=== PATIENT | female | born 1935 | race Caucasian/White ===

== ENCOUNTER 2018-09-14 02:05 | Inpatient (IN) | payer MEDICARE, OTHER ==
[~2018-09-14] VITALS: Ht 154.9 cm; Wt 70.8 kg
[2018-09-14] MEDS ORDERED: MAG HYDROX/AL HYDROX/SIMETH 30 ML ORAL.SUSP PO PRN (04:00)
[2018-09-14] MEDS ORDERED: METHYL SALICYLATE/MENTHOL TOPICAL OINTMENT 29GM TUBE. TP PRN (04:00)
[2018-09-14] MEDS ORDERED: MELA3TAB2 PO (05:23)
[2018-09-14] MEDS ORDERED: ACET500T68 PO (05:23)
[2018-09-14] MEDS ORDERED: POTA20TA4 PO (05:23)
[2018-09-14] MEDS ORDERED: ONDA4TAB7 PO (05:23)
[2018-09-14] MEDS ORDERED: NYST15PO9 TP (05:23)
[2018-09-14] MEDS ORDERED: SENN-80 PO (05:23)
[2018-09-14] MEDS ORDERED: LOSA50TA14 PO (05:23)
[2018-09-14] MEDS ORDERED: QUET25TA5 PO (05:23)
[2018-09-14] MEDS ORDERED: PREG150C PO (05:23)
[2018-09-14] MEDS ORDERED: TRAM50TA PO (05:23)
[2018-09-14] MEDS ORDERED: CARV3.12 PO (05:23)
[2018-09-14] MEDS ORDERED: DICL100G18 TP (05:23)
[2018-09-14] MEDS ORDERED: CLON1TAB PO (05:23)
[2018-09-14] MEDS ORDERED: CLOP75TA PO (05:23)
[2018-09-14] MEDS ORDERED: DULO30CA2 PO (05:23)
[2018-09-14] MEDS ORDERED: MULT1TAB57 PO (05:23)
[2018-09-14] MEDS ORDERED: TIOT18CA IH (05:23)
[2018-09-14] MEDS ORDERED: CHOL10003 PO (05:23)
[2018-09-14] MEDS ORDERED: DICLOFENAC SODIUM 1% TOPICAL GEL 100GM TUBE. TP PRN (05:30)
[2018-09-14] MEDS ORDERED: SENNOSIDES 8.6 MG TABLET PO PRN (05:30)
[2018-09-14] MEDS ORDERED: traMADol 50 MG TABLET PO PRN (05:30)
[2018-09-14] MEDS ORDERED: ONDANSETRON ODT 4 MG TAB.RAPDIS PO SCH (06:00)
[2018-09-14 06:11] VITALS: BP 149/91
[2018-09-14] MEDS ORDERED: ONDANSETRON ODT 4 MG TAB.RAPDIS PO PRN (06:30)
[2018-09-14 07:34] LABS: BASO # 0.1 x10^3/uL (0.0-0.2); BASO % 1 % (0-3); EOS # 0.2 x10^3/uL (0.0-0.7); EOS % 4 % (0-3); HEMATOCRIT 34.7 % (36.0-47.0); HEMOGLOBIN 11.5 g/dL (12.0-15.5); LYMPH # 1.3 x10^3/uL (1.0-4.8); LYMPH % 23 % (24-48); MEAN CORPUSCULAR HEMOGLOBIN 31 pg (25-35); MEAN CORPUSCULAR HGB CONC 33 g/dL (31-37); MEAN CORPUSCULAR VOLUME 93 fL (79-100); MONO # 0.6 x10^3/uL (0.0-1.1); MONO % 10 % (0-9); NEUT # 3.4 x10^3uL (1.8-7.7); NEUT % 62 % (31-73); PLATELET COUNT 249 x10^3/uL (140-400); RED BLOOD COUNT 3.72 x10^6/uL (3.50-5.40); RED CELL DISTRIBUTION WIDTH 16.4 % (11.5-14.5); WHITE BLOOD COUNT 5.5 x10^3/uL (4.0-11.0)
[2018-09-14 07:55] LABS: ALBUMIN 3.1 g/dL (3.4-5.0); ALBUMIN/GLOBULIN RATIO 0.8 (1.0-1.7); CALCIUM 9.8 mg/dL (8.5-10.1); CREATININE 0.7 mg/dL (0.6-1.0); GFR 80.1; MAGNESIUM 2.2 mg/dL (1.8-2.4); POTASSIUM 4.6 mmol/L (3.5-5.1); TOTAL BILIRUBIN 0.3 mg/dL (0.2-1.0)
[2018-09-14 07:58] LABS: VAL ACID 14 mcg/mL (50-100)
[2018-09-14] MEDS: CARVEDILOL 3.125 MG TABLET PO SCH ×3 (08:00→17:00)
[2018-09-14] MEDS: POTASSIUM CHLORIDE 20 MEQ TABLET.ER. PO SCH ×2 (08:00→10:03)
[2018-09-14] MEDS: IPRATRPIUM/ALBUTEROL 0.5/2.5MG 3 ML NEBU. NEB SCH ×4 (08:00→20:38)
[2018-09-14] MEDS: CHOLECALCIFEROL (VITAMIN D3) 1,000 UNIT TABLET PO SCH ×2 (09:00→10:01)
[2018-09-14] MEDS ORDERED: NON FORMULARY ITEM (Tiotropium Bromide (Spiriva) 1 CAP) IH SCH (09:00)
[2018-09-14] MEDS: NYSTATIN TOPICAL POWDER 15GM BOTTLE. TP SCH ×2 (09:00→19:51)
[2018-09-14] MEDS: MULTIVITAMIN with MINERAL TABLET. PO SCH ×2 (09:00→10:04)
[2018-09-14] MEDS: CLOPIDOGREL BISULFATE 75 MG TABLET PO SCH ×2 (09:00→10:04)
[2018-09-14] MEDS: PREGABALIN 75 MG CAPSULE PO SCH ×3 (09:00→19:50)
[2018-09-14] MEDS: DULoxetine HCL 30 MG CAPSULE.DR PO SCH ×2 (09:00→10:02)
[2018-09-14] MEDS: LOSARTAN 50 MG TABLET. PO SCH ×2 (09:00→10:03)
[2018-09-14] MEDS ORDERED: clonazePAM 1 MG TABLET PO SCH (09:00)
[2018-09-14] MEDS: ACETAMINOPHEN 500 MG TABLET PO SCH ×4 (09:00→19:51)
[2018-09-14 13:58] LABS: THYROID STIM HORMONE (TSH) 2.262 uIU/mL (0.358-3.740)
[2018-09-14 15:39] VITALS: BP 129/72
[2018-09-14 18:11] LABS: THYROXINE 5.9 ug/dL (4.5-12.0)
--- NOTE | 2018-09-14 18:15 | HP ---
ADMIT DATE: 09/14/2018 PSYCHIATRIC ADMISSION HISTORY/EVALUATION This note covers elements not covered in my initial note 09/14/2018. IDENTIFYING DATA: The patient is an 83-year-old female referred to us from the [facility] by Dr. Sammy John, her primary care physician, on account of increasing confusion, being combative, refusing to eat, being depressed, paranoid, and having marked insomnia. She was swinging at staff. Behaviors were deemed dangerous, unmanageable, referred to [facility] Room and then to us when she was unmanageable back at the facility after the ER visit. CHIEF COMPLAINT: "Leave me alone." The patient was in her wheelchair, head bent forward, said she was sleeping, but in fact was awake, angry, paranoid, irritable, depressed. HISTORY OF PRESENT ILLNESS: The patient has a history of dementia, Alzheimer's, vascular with delusion, depression, behavioral disturbance. Over the recent 2-3 weeks, she has had significant increase in her agitation, aggression, paranoia. She had sleep and appetite changes. No active suicidal or homicidal ideation. PAST PSYCHIATRIC HISTORY: As above. MEDICAL HISTORY: Positive for hypertension, scoliosis. Ambulates with a walker/wheelchair. The patient does have UTI and has been started on Keflex post visit to [facility] ER. DIET: Regular, takes meds crushed, hidden in pudding. CODE STATUS: Full code. ALLERGIES: HYDRALAZINE, VALIUM. CURRENT PSYCHOTROPICS: Cymbalta 30 mg a day, Klonopin 0.5 mg at bedtime, Seroquel 12.5 mg at bedtime, melatonin 9 mg at bedtime. FAMILY HISTORY: Noncontributory. MENTAL STATUS EXAMINATION: The patient was seen individually in the evening of 09/14/2018. She was at the dining table in her wheelchair prior to the meal being served. She was seated. Head bent forward, refused to respond to any questions, angry, irritable, appears depressed, paranoid, and suspicious. Attention span short. Language function intact. No active suicidal or homicidal ideation. Memory is impaired as noted. IMPRESSION: Major neurocognitive disorder, early Alzheimer, vascular with delusion, depression, behavioral disturbance; anxiety disorder, unspecified; impulse control disorder, unspecified; urinary tract infection. Rest diagnoses as above. RECOMMENDATIONS: From a psychiatric standpoint, admit to geropsychiatry unit. I will see the patient daily individually. Medical followup with Dr. Reilly. Continue the patient on her current psychotropics. Treat the UTI, then make further decisions depending on her response. ESTIMATED LENGTH OF STAY: 7-10 days. DISPOSITION PLAN: Back to the [facility] at discharge. BRITT HERRERA MD DR: MEREDITH/rekha JOB#: [id number] / [id number]
[2018-09-14] MEDS: MELATONIN 3 MG TABLET PO SCH (19:50)
[2018-09-14] MEDS ORDERED: QUEtiapine 25 MG TABLET. PO SCH (21:00)
[2018-09-14] MEDS ORDERED: ALBUTEROL SULFATE 2.5 MG/3 ML NEBU. NEB PRN (21:00)
[2018-09-14] MEDS ORDERED: MELATONIN 3 MG TABLET PO SCH (21:00)
[2018-09-14] MEDS ORDERED: clonazePAM 0.5 MG TABLET PO SCH (21:00)
[2018-09-14] MEDS ORDERED: CLON0.5T11 PO ×2 (21:32)
[2018-09-14] MEDS ORDERED: GUAI600T47 PO (21:57)
[2018-09-14] MEDS ORDERED: FURO20TA3 PO (21:57)
[2018-09-14] MEDS ORDERED: DILT180T7 PO (21:57)
[2018-09-14] MEDS ORDERED: MELO15TA23 PO (21:57)
[2018-09-14] MEDS ORDERED: FLEC50TA PO (21:57)
[2018-09-14] MEDS ORDERED: CEPH500C PO (22:07)
--- NOTE | 2018-09-14 22:19 | PDOC ---
Exam Note: Obdulio Note: Please also refer to the separate dictated note~for this date of service dictated separately. Discussed the patient with Nursing staff reviewed the chart.~Reviewed interim history and current functioning. Reviewed vital signs,~Labs/ Radiology~and current medications noted below. Continue current treatment with the changes noted in the dictated addendum note Assessment: Vital Signs: Vital Signs Date Time Temp Pulse Resp B/P (MAP) Pulse Ox O2 Delivery O2 Flow Rate FiO2 09/14/18 17:00 89 129/72 09/14/18 16:36 94 Room Air 09/14/18 15:39 98.2 16 Labs: Laboratory Tests Test 09/14/18 07:14 White Blood Count 5.5 x10^3/uL (4.0-11.0) Red Blood Count 3.72 x10^6/uL (3.50-5.40) Hemoglobin 11.5 g/dL (12.0-15.5) L Hematocrit 34.7 % (36.0-47.0) L Mean Corpuscular Volume 93 fL (79-100) Mean Corpuscular Hemoglobin 31 pg (25-35) Mean Corpuscular Hemoglobin Concent 33 g/dL (31-37) Red Cell Distribution Width 16.4 % (11.5-14.5) H Platelet Count 249 x10^3/uL (140-400) Neutrophils (%) (Auto) 62 % (31-73) Lymphocytes (%) (Auto) 23 % (24-48) L Monocytes (%) (Auto) 10 % (0-9) H Eosinophils (%) (Auto) 4 % (0-3) H Basophils (%) (Auto) 1 % (0-3) Neutrophils # (Auto) 3.4 x10^3uL (1.8-7.7) Lymphocytes # (Auto) 1.3 x10^3/uL (1.0-4.8) Monocytes # (Auto) 0.6 x10^3/uL (0.0-1.1) Eosinophils # (Auto) 0.2 x10^3/uL (0.0-0.7) Basophils # (Auto) 0.1 x10^3/uL (0.0-0.2) Sodium Level 147 mmol/L (136-145) H Potassium Level 4.6 mmol/L (3.5-5.1) Chloride Level 109 mmol/L (98-107) H Carbon Dioxide Level 30 mmol/L (21-32) Anion Gap 8 (6-14) Blood Urea Nitrogen 15 mg/dL (7-20) Creatinine 0.7 mg/dL (0.6-1.0) Estimated GFR (Cockcroft-Gault) 80.1 BUN/Creatinine Ratio 21 (6-20) H Glucose Level 97 mg/dL (70-99) Calcium Level 9.8 mg/dL (8.5-10.1) Magnesium Level 2.2 mg/dL (1.8-2.4) Iron Level 41 ug/dL (50-170) L Total Iron Binding Capacity 294 ug/dL (250-450) Iron Saturation 14 % (15-34) L Total Bilirubin 0.3 mg/dL (0.2-1.0) Aspartate Amino Transferase (AST) 13 U/L (15-37) L Alanine Aminotransferase (ALT) 16 U/L (14-59) Alkaline Phosphatase 83 U/L (46-116) Total Protein 7.0 g/dL (6.4-8.2) Albumin 3.1 g/dL (3.4-5.0) L Albumin/Globulin Ratio 0.8 (1.0-1.7) L Triglycerides Level 162 mg/dL (0-150) H Cholesterol Level 198 mg/dL (0-200) LDL Cholesterol, Calculated 126 mg/dL (0-100) H VLDL Cholesterol, Calculated 32 mg/dL (0-40) Non-HDL Cholesterol Calculated 158 mg/dL (0-129) H HDL Cholesterol 40 mg/dL (40-60) Cholesterol/HDL Ratio 4.0 25-Hydroxy Vitamin D Total 31.5 ng/mL (30-100) Thyroid Stimulating Hormone (TSH) 2.262 uIU/mL (0.358-3.740) Thyroxine (T4) 5.9 ug/dL (4.5-12.0) Total Triiodothyronine (TT3) 133 ng/dL (71-180) Valproic Acid Level 14 mcg/mL (50-100) L Valproic Acid Last Dose Date 09/13/2018 Valproic Acid Last Dose Time 0900 Treponema pallidum Antibody Nonreactive (Nonreactive) Current Medications: Meds: Current Medications Acetaminophen (Tylenol) 650 mg PRN Q6HRS PRN PO PAIN / TEMP; Start 09/14/18 at 04:00 Multi-Ingredient Ointment (Analgesic [place]) 1 cindy PRN QID PRN TP MUSCLE PAIN; Start 09/14/18 at 04:00 Al Hydroxide/Mg Hydroxide (Mylanta Plus Xs) 15 ml PRN AFTMEALHC PRN PO DYSPEPSIA; Start 09/14/18 at 04:00 Magnesium Hydroxide (Milk Of Magnesia) 2,400 mg PRN QHS PRN PO CONSTIPATION; Start 09/14/18 at 04:00 Vitamin D (Vitamin D3) 2,000 unit DAILY PO ; Start 09/14/18 at 09:00; Stop 09/14/18 at 22:02; Status DC Clopidogrel Bisulfate (Plavix) 75 mg DAILY PO ; Start 09/14/18 at 09:00 Diclofenac Sodium (Voltaren) 1 cindy PRN Q6HRS PRN TP PAIN; Start 09/14/18 at 05:30 Nystatin (Nystop) 1 cindy BID TP Last administered on 09/14/18at 19:51; Start 09/14/18 at 09:00 Potassium Chloride (Klor-Con) 20 meq DAILYWBKFT PO ; Start 09/14/18 at 08:00 Tramadol HCl (Ultram) 25 mg PRN Q4HRS PRN PO PAIN; Start 09/14/18 at 05:30; Stop 09/14/18 at 21:20; Status DC Acetaminophen (Tylenol) 500 mg TID PO Last administered on 09/14/18at 19:51; Start 09/14/18 at 09:00 Carvedilol (Coreg) 3.125 mg BIDWMEALS PO Last administered on 09/14/18at 17:00; Start 09/14/18 at 08:00; Stop 09/14/18 at 18:39; Status DC Clonazepam (KlonoPIN) 1 mg BID PO Last administered on 09/14/18at 10:01; Start 09/14/18 at 09:00; Stop 09/14/18 at 17:35; Status DC Duloxetine HCl (Cymbalta) 30 mg DAILY PO ; Start 09/14/18 at 09:00; Stop 09/14/18 at 22:04; Status DC Losartan Potassium (Cozaar) 100 mg DAILY PO ; Start 09/14/18 at 09:00 Melatonin 9 mg HS PO ; Start 09/14/18 at 21:00; Stop 09/14/18 at 21:00; Status DC Multivitamins/ Calcium (Thera-M Plus) 1 tab DAILY PO ; Start 09/14/18 at 09:00; Stop 09/14/18 at 22:02; Status DC Ondansetron HCl (Zofran Odt) 4 mg Q6HRS PO ; Start 09/14/18 at 06:00; Stop 09/14 at 06:23; Status DC Pregabalin (Lyrica) 150 mg BID PO Last administered on 09/14/18at 19:50; Start 09/14/18 at 09:00; Stop 09/14/18 at 22:02; Status DC Quetiapine Fumarate (SEROquel) 12.5 mg HS PO Last administered on 09/14/18at 19:51; Start 09/14/18 at 21:00; Stop 09/14/18 at 22:04; Status DC Sennosides (Senna) 8.6 mg PRN DAILY PRN PO CONSTIPATION; Start 09/14/18 at 05:30; Stop 09/14/18 at 18:39; Status DC Non-Formulary Medication (Tiotropium [place] (Spiriva)) 1 cap DAILY IH ; Start 09/14/18 at 09:00; Stop 09/14/18 at 09:00; Status DC Ondansetron HCl (Zofran Odt) 4 mg PRN Q6HRS PRN PO nausea; Start 09/14/18 at 06:30; Stop 09/14/18 at 22:02; Status DC Albuterol/ Ipratropium (Duoneb) 3 ml RTQID NEB Last administered on 09/14/18at 20:38; Start 09/14/18 at 08:00 Clonazepam (KlonoPIN) 1 mg DAILY PO ; Start 09/15/18 at 09:00; Stop 09/15/18 at 09:00; Status DC Clonazepam (KlonoPIN) 0.5 mg BID PO ; Start 09/18/18 at 09:00; Stop 09/18/18 at 09:00; Status DC Clonazepam (KlonoPIN) 0.5 mg QHS PO ; Start 09/14/18 at 21:00; Stop 09/14/18 at 21:00; Status DC Olanzapine (ZyPREXA ZYDIS) 2.5 mg PRN Q2HR PRN PO ANXIETY / AGITATION; Start 09/14/18 at 17:45 Melatonin 9 mg HS PO Last administered on 09/14/18at 19:50; Start 09/14/18 at 21:00 Albuterol Sulfate (Ventolin) 2.5 mg RTQID NEB ; Start 09/15/18 at 08:00 Budesonide (Pulmicort) 0.5 mg RTBID NEB ; Start 09/15/18 at 08:00 Albuterol Sulfate (Ventolin) 2.5 mg PRN Q4HRS PRN NEB SHORTNESS OF BREATH; Start 09/14/18 at 21:00 Furosemide (Lasix) 20 mg DAILY PO ; Start 09/15/18 at 09:00 Guaifenesin (Mucinex Er) 600 mg BID PO ; Start 09/15/18 at 09:00 Diltiazem HCl (Cardizem) 30 mg QID PO ; Start 09/15/18 at 09:00 Flecainide Acetate (Tambocor) 50 mg Q12HR PO ; Start 09/15/18 at 09:00 Meloxicam (Mobic) 15 mg DAILY PO ; Start 09/15/18 at 09:00 Clonazepam (KlonoPIN) 0.25 mg 1900 PO ; Start 09/15/18 at 19:00 Clonazepam (KlonoPIN) 0.25 mg PRN Q8HRS PRN PO ANXIETY / AGITATION; Start 09/14/18 at 22:00 Non-Formulary Medication (Cephalexin ) 500 mg Q8HRS PO ; Start 09/15/18 at 06:0 0; Status UNV Active Scripts Active Reported Cephalexin 500 Mg Capsule 500 Mg PO Q8HRS 7 Days Meloxicam 15 Mg Tablet 15 Mg PO DAILY Mucinex (Guaifenesin) 600 Mg Tablet.er 600 Mg PO BID Furosemide 20 Mg Tablet 20 Mg PO DAILY Flecainide Acetate 50 Mg Tablet 50 Mg PO BIDWMEALS Diltiazem 24Hr ER (Diltiazem HCl) 180 Mg Tab.er.24h 180 Mg PO DAILY Clonazepam 0.5 Mg Tablet 0.25 Mg PO PRN Q8HRS PRN Clonazepam 0.5 Mg Tablet 0.25 Mg PO DAILY19(DAILY @1900) Voltaren (Diclofenac Sodium) 100 Gm Gel..gram. 1 Cindy TP Q6HRS Nystatin 15 Gm Powder 1 Cindy TP BID Spiriva (Tiotropium [place]) 18 Mcg Cap.w.dev 1 Cap IH DAILY Klor-Con M20 (Potassium Chloride) 20 Meq Tab.er.prt 20 Meq PO DAILY Melatonin 3 Mg Tablet 9 Mg PO HS Losartan Potassium 50 Mg Tablet 100 Mg PO DAILY Clopidogrel (Clopidogrel Bisulfate) 75 Mg Tablet 75 Mg PO DAILY Acetaminophen 500 Mg Tablet 500 Mg PO TID I have reviewed the current psychotropics carefully including drug interactions. Risk benefit ratio favors no change other than as noted in my dictated progress note. Diagnosis: Problems: (1) Anxiety disorder (2) Dementia, vascular, with depression (3) Depression (4) Dementia in Alzheimer's disease with depression (5) Dementia in Alzheimer's disease with delusions (6) Impulse control disorder (7) Major neurocognitive disorder BRITT HERRERA MD September 14, 2018 22:19
[2018-09-15] MEDS: IPRATRPIUM/ALBUTEROL 0.5/2.5MG 3 ML NEBU. NEB SCH ×4 (05:09→20:50)
[2018-09-15 05:15] VITALS: BP 104/46
[2018-09-15] MEDS: CEPHALEXIN 250 MG CAPSULE PO SCH ×3 (06:00→19:21)
[2018-09-15] MEDS: POTASSIUM CHLORIDE 20 MEQ TABLET.ER. PO SCH (08:00)
[2018-09-15] MEDS ORDERED: ALBUTEROL SULFATE 2.5 MG/3 ML NEBU. NEB SCH (08:00)
[2018-09-15] MEDS: CLOPIDOGREL BISULFATE 75 MG TABLET PO SCH (08:01)
[2018-09-15 08:14] VITALS: BP 109/70
[2018-09-15] MEDS: MELOXICAM 15 MG TABLET. PO SCH (08:20)
[2018-09-15] MEDS: LACTOBACILLUS RHAMNOSUS GG 1 CAPSULE. PO SCH ×2 (08:20→19:20)
[2018-09-15] MEDS: FUROSEMIDE 20 MG TABLET PO SCH (08:20)
[2018-09-15] MEDS: ACETAMINOPHEN 500 MG TABLET PO SCH ×3 (08:21→19:21)
[2018-09-15] MEDS: FLECAINIDE 50 MG TABLET. PO SCH ×2 (08:22→19:21)
[2018-09-15] MEDS: dilTIAZem HCL 30 MG TABLET PO SCH ×4 (08:30→19:20)
[2018-09-15] MEDS: LOSARTAN 50 MG TABLET. PO SCH (08:30)
[2018-09-15] MEDS: NYSTATIN TOPICAL POWDER 15GM BOTTLE. TP SCH ×2 (09:00→19:21)
[2018-09-15] MEDS ORDERED: clonazePAM 1 MG TABLET PO SCH (09:00)
[2018-09-15] MEDS: BUDESONIDE 0.5 MG/2 ML NEBU NEB SCH ×2 (10:02→20:50)
[2018-09-15 16:18] VITALS: BP 114/65
[2018-09-15] MEDS ORDERED: clonazePAM 0.5 MG TABLET PO SCH (19:00)
[2018-09-15] MEDS: MELATONIN 3 MG TABLET PO SCH (19:20)
--- NOTE | 2018-09-15 20:13 | CONS ---
DATE OF CONSULTATION: 09/14/2018 REASON FOR CONSULTATION: Medical management. HISTORY OF PRESENT ILLNESS: The patient is an 83-year-old female patient, a resident at [facility], who was [facility] on account of increasing confusion and being combative, refusing to eat, being depressed, paranoid, and having marked insomnia. She was swinging at staff. Behaviors were deemed dangerous, unmanageable, and referred to [facility] and then to [facility] for inpatient psychiatric stabilization. The patient is extremely demented, does not really give any useful information. She was very uncooperative and noncompliant. PAST MEDICAL HISTORY: Significant for hypertension, recurrent UTIs. She has also hypertension and peripheral neuropathy, chronic constipation. PAST SURGICAL HISTORY: Unremarkable. PAST PSYCHIATRIC HISTORY: Significant for dementia, Alzheimer, vascular with delusion, depression, behavioral disturbances. ALLERGIES: SHE IS ALLERGIC TO HYDRALAZINE AND VALIUM. FAMILY HISTORY: Noncontributory. SOCIAL HISTORY: She is a resident at the [facility]. She does not smoke, drink alcohol or use recreational drugs. MEDICATIONS: She is currently on Spiriva HandiHaler 1 inhalation once a day. She is on Plavix 75 mg once a day, carvedilol 3.125 mg once a day, losartan potassium 50 mg daily, diclofenac sodium for Voltaren gel every 6 hours, tramadol 25 mg every 4 hours, Tylenol 500 mg 3 times a day, clonazepam 1 mg twice a day, pregabalin 150 mg twice a day, duloxetine 30 mg daily, quetiapine fumarate 12.5 mg at bedtime, potassium chloride 20 mEq daily, senna 1 tablet once a day, ondansetron 4 mg every 6 hours, nystatin powder applied topically twice a day, ergocalciferol, vitamin D3 2000 international unit once a day, multivitamin 1 tablet once a day, melatonin 9 mg at bedtime. PHYSICAL EXAMINATION: GENERAL: When I examined her, the patient was sitting comfortably in her wheelchair, in no apparent distress. She was pale, but no jaundice, cyanosis, or thyromegaly. No jugular venous distension. No lower limb edema. VITAL SIGNS: Her heart rate was 89, blood pressure was 129/72, temperature was 98.2, respiratory rate was 16, and oxygen saturation was 93% on room air. HEAD, EYES, EARS, NOSE AND THROAT: Normocephalic, atraumatic. NECK: Supple. HEART: Showed normal first and second heart sounds. No gallop, rub or murmur. CHEST: Clear to auscultation. No crepitation or rhonchi. ABDOMEN: Distended, soft, nontender. NEUROLOGIC: She is demented, but without any obvious lateralizing sign. All her cranial nerves intact. EXTREMITIES: She moves her extremities without difficulties and she is mostly wheelchair bound, and apparently she has also severe kyphoscoliosis. LABORATORY DATA: Showed a white cell count 5500, hemoglobin 11.5, hematocrit 34.7, MCV 93, and platelet count 249,000. Her chemistry showed a serum sodium of 147, potassium 4.6, chloride 109, bicarbonate 30, anion gap of 8, BUN 15, creatinine 0.7, estimated GFR was 80 mL per minute. Her glucose 97, calcium was 89.8, magnesium 2.2. Her serum iron, TIBC and iron saturation are all consistent with anemia of chronic disease. Total bilirubin 0.3. AST, ALT, alkaline phosphatase were normal. Total protein 7, albumin 3.1. Serum triglycerides were 162. Total cholesterol 198, LDL was 126, VLDL was 32, HDL cholesterol was 40, the ratio was 4. Her 25-hydroxyvitamin D was 31.5. TSH was 2.262, total T4 and total T3 are normal. Her toxicology screen showed valproic acid only 14 mcg/mL, which is subtherapeutic. Her Treponema pallidum antibody was nonreactive. IMPRESSION: In summary, this is an 83-year-old female patient who was admitted on account of being increasingly confused, combative, refusing to eat, being depressed, paranoid, and having marked insomnia. She was swinging at staff. Behaviors that were deemed dangerous, unmanageable, and was referred to this unit for inpatient psychiatric stabilization. Medically, she is known to have hypertension, chronic obstructive pulmonary disease, kyphoscoliosis. Medically all in all, the patient seems to be stable. I will obviously follow all her lab works that are still pending and make any necessary recommendation. Otherwise, continue with all her current medications. Thank you, Dr. Llamas, for allowing me to participate in the care of this patient. ЮЛИЯ ALMONTE MD DR: Venessa JOB#: [id number] / [id number]
[2018-09-15] MEDS: clonazePAM 0.5 MG TABLET PO PRN (22:13)
--- NOTE | 2018-09-15 22:28 | PDOC ---
Exam Note: Obdulio Note: Please also refer to the separate dictated note~for this date of service dictated separately.~Patient seen individually. Discussed the patient with Nursing staff reviewed the chart.~Reviewed interim history and current functioning. Reviewed vital signs,~Labs/ Radiology~and current medications noted below. Continue current treatment with the changes noted in the dictated addendum note Assessment: Vital Signs: Vital Signs Date Time Temp Pulse Resp B/P (MAP) Pulse Ox O2 Delivery O2 Flow Rate FiO2 09/15/18 20:54 95 Room Air 09/15/18 19:21 104 114/65 09/15/18 16:18 98.0 17 09/15/18 10:04 2.0 I&O Intake and Output 09/15/18 06:59 Intake Total 840 ml Balance 840 ml Intake Oral 840 ml # Bowel Movements 1 Current Medications: Meds: Current Medications Acetaminophen (Tylenol) 650 mg PRN Q6HRS PRN PO PAIN / TEMP; Start 09/14/18 at 04:00 Multi-Ingredient Ointment (Analgesic [place]) 1 cindy PRN QID PRN TP MUSCLE PAIN; Start 09/14/18 at 04:00 Al Hydroxide/Mg Hydroxide (Mylanta Plus Xs) 15 ml PRN AFTMEALHC PRN PO DYSP EPSIA; Start 09/14/18 at 04:00 Magnesium Hydroxide (Milk Of Magnesia) 2,400 mg PRN QHS PRN PO CONSTIPATION; Start 09/14/18 at 04:00 Vitamin D (Vitamin D3) 2,000 unit DAILY PO ; Start 09/14/18 at 09:00; Stop 09/14/18 at 22:02; Status DC Clopidogrel Bisulfate (Plavix) 75 mg DAILY PO Last administered on 09/15/18at 08:01; Start 09/14/18 at 09:00 Diclofenac Sodium (Voltaren) 1 cindy PRN Q6HRS PRN TP PAIN; Start 09/14/18 at 05:30 Nystatin (Nystop) 1 cindy BID TP Last administered on 09/15/18at 19:21; Start 09/14/18 at 09:00 Potassium Chloride (Klor-Con) 20 meq DAILYWBKFT PO Last administered on 09/15/18at 08:00; Start 09/14/18 at 08:00 Tramadol HCl (Ultram) 25 mg PRN Q4HRS PRN PO PAIN; Start 09/14/18 at 05:30; Stop 09/14/18 at 21:20; Status DC Acetaminophen (Tylenol) 500 mg TID PO Last administered on 09/15/18at 19:21; Start 09/14/18 at 09:00 Carvedilol (Coreg) 3.125 mg BIDWMEALS PO Last administered on 09/14/18at 17:00; Start 09/14/18 at 08:00; Stop 09/14/18 at 18:39; Status DC Clonazepam (KlonoPIN) 1 mg BID PO Last administered on 09/14/18at 10:01; Start 09/14/18 at 09:00; Stop 09/14/18 at 17:35; Status DC Duloxetine HCl (Cymbalta) 30 mg DAILY PO ; Start 09/14/18 at 09:00; Stop 09/14/18 at 22:04; Status DC Losartan Potassium (Cozaar) 100 mg DAILY PO Last administered on 09/15/18at 08:30; Start 09/14/18 at 09:00 Melatonin 9 mg HS PO ; Start 09/14/18 at 21:00; Stop 09/14/18 at 21:00; Status DC Multivitamins/ Calcium (Thera-M Plus) 1 tab DAILY PO ; Start 09/14/18 at 09:00; Stop 09/14/18 at 22:02; Status DC Ondansetron HCl (Zofran Odt) 4 mg Q6HRS PO ; Start 09/14/18 at 06:00; Stop 09/14/18 at 06:23; Status DC Pregabalin (Lyrica) 150 mg BID PO Last administered on 09/14/18at 19:50; Start 09/14/18 at 09:00; Stop 09/14/18 at 22:02; Status DC Quetiapine Fumarate (SEROquel) 12.5 mg HS PO Last administered on 09/14/18at 19:51; Start 09/14/18 at 21:00; Stop 09/14/18 at 22:04; Status DC Sennosides (Senna) 8.6 mg PRN DAILY PRN PO CONSTIPATION; Start 09/14/18 at 05:30; Stop 09/14/18 at 18:39; Status DC Non-Formulary Medication (Tiotropium [place] (Spiriva)) 1 cap DAILY IH ; Start 09/14/18 at 09:00; Stop 09/14/18 at 09:00; Status DC Ondansetron HCl (Zofran Odt) 4 mg PRN Q6HRS PRN PO nausea; Start 09/14/18 at 06:30; Stop 09/14/18 at 22:02; Status DC Albuterol/ Ipratropium (Duoneb) 3 ml RTQID NEB Last administered on 09/15/18at 20:50; Start 09/14/18 at 08:00 Clonazepam (KlonoPIN) 1 mg DAILY PO ; Start 09/15/18 at 09:00; Stop 09/15/18 at 09:00; Status DC Clonazepam (KlonoPIN) 0.5 mg BID PO ; Start 09/18/18 at 09:00; Stop 09/18/18 at 09:00; Status DC Clonazepam (KlonoPIN) 0.5 mg QHS PO ; Start 09/14/18 at 21:00; Stop 09/14/18 at 21:00; Status DC Olanzapine (ZyPREXA ZYDIS) 2.5 mg PRN Q2HR PRN PO ANXIETY / AGITATION Last administered on 09/15/18at 22:13; Start 09/14/18 at 17:45 Melatonin 9 mg HS PO Last administered on 09/15/18at 19:20; Start 09/14/18 at 21:00 Albuterol Sulfate (Ventolin) 2.5 mg RTQID NEB ; Start 09/15/18 at 08:00; Stop 09/15/18 at 13:58; Status DC Budesonide (Pulmicort) 0.5 mg RTBID NEB Last administered on 09/15/18at 20:50; Start 09/15/18 at 08:00 Albuterol Sulfate (Ventolin) 2.5 mg PRN Q4HRS PRN NEB SHORTNESS OF BREATH; Start 09/14/18 at 21:00 Furosemide (Lasix) 20 mg DAILY PO Last administered on 09/15/18at 08:20; Start 09/15/18 at 09:00 Guaifenesin (Mucinex Er) 600 mg BID PO Last administered on 09/15/18at 19:21; Start 09/15/18 at 09:00 Diltiazem HCl (Cardizem) 30 mg QID PO Last administered on 09/15/18 19:20; Start 09/15/18 at 09:00 Flecainide Acetate (Tambocor) 50 mg Q12HR PO Last administered on 09/15/18 19:21; Start 09/15/18 at 09:00 Meloxicam (Mobic) 15 mg DAILY PO Last administered on 09/15/18 08:20; Start 09/15/18 at 09:00 Clonazepam (KlonoPIN) 0.25 mg 1900 PO Last administered on 09/15/18 18:04; Start 09/15/18 at 19:00 Clonazepam (KlonoPIN) 0.25 mg PRN Q8HRS PRN PO ANXIETY / AGITATION Last administered on 09/15/18 22:13; Start 09/14/18 at 22:00 Cephalexin HCl (Keflex) 500 mg Q8HRS PO Last administered on 09/15/18 19:21; Start 09/15/18 at 06:00 Lactobacillus Rhamnosus (Culturelle) 1 cap BID PO Last administered on 09/15/18 19:20; Start 09/15/18 at 09:00 Active Scripts Active Reported Cephalexin 500 Mg Capsule 500 Mg PO Q8HRS 7 Days Meloxicam 15 Mg Tablet 15 Mg PO DAILY Mucinex (Guaifenesin) 600 Mg Tablet.er 600 Mg PO BID Furosemide 20 Mg Tablet 20 Mg PO DAILY Flecainide Acetate 50 Mg Tablet 50 Mg PO BIDWMEALS Diltiazem 24Hr ER (Diltiazem HCl) 180 Mg Tab.er.24h 180 Mg PO DAILY Clonazepam 0.5 Mg Tablet 0.25 Mg PO PRN Q8HRS PRN Clonazepam 0.5 Mg Tablet 0.25 Mg PO DAILY19(DAILY @1900) Voltaren (Diclofenac Sodium) 100 Gm Gel..gram. 1 Cindy TP Q6HRS Nystatin 15 Gm Powder 1 Cindy TP BID Spiriva (Tiotropium [place]) 18 Mcg Cap.w.dev 1 Cap IH DAILY Klor-Con M20 (Potassium Chloride) 20 Meq Tab.er.prt 20 Meq PO DAILY Melatonin 3 Mg Tablet 9 Mg PO HS Losartan Potassium 50 Mg Tablet 100 Mg PO DAILY Clopidogrel (Clopidogrel Bisulfate) 75 Mg Tablet 75 Mg PO DAILY Acetaminophen 500 Mg Tablet 500 Mg PO TID I have reviewed the current psychotropics carefully including drug interactions. Risk benefit ratio favors no change other than as noted in my dictated progress note. Diagnosis: Problems: (1) Major neurocognitive disorder (2) Anxiety disorder (3) Dementia, vascular, with depression (4) Depression (5) Dementia in Alzheimer's disease with depression (6) Dementia in Alzheimer's disease with delusions (7) Impulse control disorder BRITT HERRERA MD September 15, 2018 22:28
[2018-09-16] MEDS: CEPHALEXIN 250 MG CAPSULE PO SCH ×3 (05:06→19:10)
[2018-09-16] MEDS: IPRATRPIUM/ALBUTEROL 0.5/2.5MG 3 ML NEBU. NEB SCH ×4 (05:13→20:25)
[2018-09-16] MEDS: BUDESONIDE 0.5 MG/2 ML NEBU NEB SCH ×2 (05:13→20:25)
[2018-09-16 06:27] VITALS: BP 128/95
[2018-09-16] MEDS: dilTIAZem HCL 30 MG TABLET PO SCH ×2 (08:30→13:12)
[2018-09-16] MEDS: POTASSIUM CHLORIDE 20 MEQ TABLET.ER. PO SCH (08:30)
[2018-09-16] MEDS: ACETAMINOPHEN 500 MG TABLET PO SCH ×3 (08:31→19:10)
[2018-09-16] MEDS: CLOPIDOGREL BISULFATE 75 MG TABLET PO SCH (08:31)
[2018-09-16] MEDS: LOSARTAN 50 MG TABLET. PO SCH (08:31)
[2018-09-16] MEDS: LACTOBACILLUS RHAMNOSUS GG 1 CAPSULE. PO SCH ×2 (08:31→19:10)
[2018-09-16] MEDS: MELOXICAM 15 MG TABLET. PO SCH (08:31)
[2018-09-16] MEDS: FUROSEMIDE 20 MG TABLET PO SCH (08:31)
[2018-09-16] MEDS: FLECAINIDE 50 MG TABLET. PO SCH ×2 (08:31→19:12)
[2018-09-16] MEDS: NYSTATIN TOPICAL POWDER 15GM BOTTLE. TP SCH ×2 (08:32→19:10)
[2018-09-16 13:10] VITALS: BP 109/71
[2018-09-16 16:39] VITALS: BP 113/77
[2018-09-16] MEDS: MELATONIN 3 MG TABLET PO SCH (19:10)
[2018-09-16] MEDS: clonazePAM 0.5 MG TABLET PO SCH (19:12)
[2018-09-16] MEDS: clonazePAM 0.5 MG TABLET PO PRN ×2 (21:37→21:57)
--- NOTE | 2018-09-16 22:30 | PDOC ---
Exam Note: Obdulio Note: Please also refer to the separate dictated note~for this date of service dictated separately.~Patient seen individually. Discussed the patient with Nursing staff reviewed the chart.~Reviewed interim history and current functioning. Reviewed vital signs,~Labs/ Radiology~and current medications noted below. Continue current treatment with the changes noted in the dictated addendum note Assessment: Vital Signs: Vital Signs Date Time Temp Pulse Resp B/P (MAP) Pulse Ox O2 Delivery O2 Flow Rate FiO2 09/16/18 21:09 94 Room Air 09/16/18 19:12 62 113/77 09/16/18 16:39 97.1 18 09/15/18 10:04 2.0 I&O Intake and Output 09/16/18 06:59 Intake Total 960 ml Balance 960 ml Intake Oral 960 ml Current Medications: Meds: Current Medications Acetaminophen (Tylenol) 650 mg PRN Q6HRS PRN PO PAIN / TEMP; Start 09/14/18 at 04:00 Multi-Ingredient Ointment (Analgesic [place]) 1 cindy PRN QID PRN TP MUSCLE PAIN; Start 09/14/18 at 04:00 Al Hydroxide/Mg Hydroxide (Mylanta Plus Xs) 15 ml PRN AFTMEALHC PRN PO DYSPEPSIA; Start 09/14/18 at 04:00 Magnesium Hydroxide (Milk Of Magnesia) 2,400 mg PRN QHS PRN PO CONSTIPATION; Start 09/14/18 at 04:00 Vitamin D (Vitamin D3) 2,000 unit DAILY PO ; Start 09/14/18 at 09:00; Stop 09/14/18 at 22:02; Status DC Clopidogrel Bisulfate (Plavix) 75 mg DAILY PO Last administered on 09/16/18at 08:31; Start 09/14/18 at 09:00 Diclofenac Sodium (Voltaren) 1 cindy PRN Q6HRS PRN TP PAIN; Start 09/14/18 at 05:30 Nystatin (Nystop) 1 cindy BID TP Last administered on 09/16/18at 19:10; Start 09/14/18 at 09:00 Potassium Chloride (Klor-Con) 20 meq DAILYWBKFT PO Last administered on 09/16/18at 08:30; Start 09/14/18 at 08:00 Tramadol HCl (Ultram) 25 mg PRN Q4HRS PRN PO PAIN; Start 09/14/18 at 05:30; Stop 09/14/18 at 21:20; Status DC Acetaminophen (Tylenol) 500 mg TID PO Last administered on 09/16/18at 19:10; Start 09/14/18 at 09:00 Carvedilol (Coreg) 3.125 mg BIDWMEALS PO Last administered on 09/14/18at 17:00; Start 09/14/18 at 08:00; Stop 09/14/18 at 18:39; Status DC Clonazepam (KlonoPIN) 1 mg BID PO Last administered on 09/14/18at 10:01; Start 09/14/18 at 09:00; Stop 09/14/18 at 17:35; Status DC Duloxetine HCl (Cymbalta) 30 mg DAILY PO ; Start 09/14/18 at 09:00; Stop 09/14/18 at 22:04; Status DC Losartan Potassium (Cozaar) 100 mg DAILY PO Last administered on 09/16/18at 08:31; Start 09/14/18 at 09:00 Melatonin 9 mg HS PO ; Start 09/14/18 at 21:00; Stop 09/14/18 at 21:00; Status DC Multivitamins/ Calcium (Thera-M Plus) 1 tab DAILY PO ; Start 09/14/18 at 09:00; Stop 09/14/18 at 22:02; Status DC Ondansetron HCl (Zofran Odt) 4 mg Q6HRS PO ; Start 09/14/18 at 06:00; Stop 09/14/18 at 06:23; Status DC Pregabalin (Lyrica) 150 mg BID PO Last administered on 09/14/18at 19:50; Start 09/14/18 at 09:00; Stop 09/14/18 at 22:02; Status DC Quetiapine Fumarate (SEROquel) 12.5 mg HS PO Last administered on 09/14/18at 19:51; Start 09/14/18 at 21:00; Stop 09/14/18 at 22:04; Status DC Sennosides (Senna) 8.6 mg PRN DAILY PRN PO CONSTIPATION; Start 09/14/18 at 05:30; Stop 09/14/18 at 18:39; Status DC Non-Formulary Medication (Tiotropium [place] (Spiriva)) 1 cap DAILY IH ; Start 09/14/18 at 09:00; Stop 09/14/18 at 09:00; Status DC Ondansetron HCl (Zofran Odt) 4 mg PRN Q6HRS PRN PO nausea; Start 09/14/18 at 06:30; Stop 09/14/18 at 22:02; Status DC Albuterol/ Ipratropium (Duoneb) 3 ml RTQID NEB Last administered on 09/16/18at 20:25; Start 09/14/18 at 08:00 Clonazepam (KlonoPIN) 1 mg DAILY PO ; Start 09/15/18 at 09:00; Stop 09/15/18 at 09:00; Status DC Clonazepam (KlonoPIN) 0.5 mg BID PO ; Start 09/18/18 at 09:00; Stop 09/18/18 at 09:00; Status DC Clonazepam (KlonoPIN) 0.5 mg QHS PO ; Start 09/14/18 at 21:00; Stop 09/14/18 at 21:00; Status DC Olanzapine (ZyPREXA ZYDIS) 2.5 mg PRN Q2HR PRN PO ANXIETY / AGITATION Last administered on 09/16/18at 21:57; Start 09/14/18 at 17:45 Melatonin 9 mg HS PO Last administered on 09/16/18at 19:10; Start 09/14/18 at 21:00 Albuterol Sulfate (Ventolin) 2.5 mg RTQID NEB ; Start 09/15/18 at 08:00; Stop 09/15/18 at 13:58; Status DC Budesonide (Pulmicort) 0.5 mg RTBID NEB Last administered on 09/16/18at 20:25; Start 09/15/18 at 08:00 Albuterol Sulfate (Ventolin) 2.5 mg PRN Q4HRS PRN NEB SHORTNESS OF BREATH; Start 09/14/18 at 21:00 Furosemide (Lasix) 20 mg DAILY PO Last administered on 09/16/18at 08:31; Start 09/15/18 at 09:00 Guaifenesin (Mucinex Er) 600 mg BID PO Last administered on 09/16/18at 19:10; Start 09/15/18 at 09:00 Diltiazem HCl (Cardizem) 30 mg QID PO Last administered on 09/16/18at 13:12; Sta rt 09/15/18 at 09:00; Stop 09/16/18 at 16:23; Status DC Flecainide Acetate (Tambocor) 50 mg Q12HR PO Last administered on 09/16/18at 19:12; Start 09/15/18 at 09:00 Meloxicam (Mobic) 15 mg DAILY PO Last administered on 09/16/18at 08:31; Start 09/15/18 at 09:00 Clonazepam (KlonoPIN) 0.25 mg 1900 PO Last administered on 09/15/18at 18:04; Start 09/15/18 at 19:00; Stop 09/16/18 at 16:57; Status DC Clonazepam (KlonoPIN) 0.25 mg PRN Q8HRS PRN PO ANXIETY / AGITATION Last administered on 09/16/18at 21:57; Start 09/14/18 at 22:00 Cephalexin HCl (Keflex) 500 mg Q8HRS PO Last administered on 09/16/18at 19:10; Start 09/15/18 at 06:00; Stop 09/21/18 at 05:59 Lactobacillus Rhamnosus (Culturelle) 1 cap BID PO Last administered on 09/16/18at 19:10; Start 09/15/18 at 09:00 Diltiazem HCl (Cardizem 24hr Cd) 120 mg DAILY PO ; Start 09/17/18 at 09:00 Clonazepam (KlonoPIN) 0.25 mg 1900 PO Last administered on 09/16/18at 19:12; Start 09/16/18 at 20:00 Active Scripts Active Reported Cephalexin 500 Mg Capsule 500 Mg PO Q8HRS 7 Days Meloxicam 15 Mg Tablet 15 Mg PO DAILY Mucinex (Guaifenesin) 600 Mg Tablet.er 600 Mg PO BID Furosemide 20 Mg Tablet 20 Mg PO DAILY Flecainide Acetate 50 Mg Tablet 50 Mg PO BIDWMEALS Diltiazem 24Hr ER (Diltiazem HCl) 180 Mg Tab.er.24h 180 Mg PO DAILY Clonazepam 0.5 Mg Tablet 0.25 Mg PO PRN Q8HRS PRN Clonazepam 0.5 Mg Tablet 0.25 Mg PO DAILY19(DAILY @1900) Voltaren (Diclofenac Sodium) 100 Gm Gel..gram. 1 Cindy TP Q6HRS Nystatin 15 Gm Powder 1 Cindy TP BID Spiriva (Tiotropium [place]) 18 Mcg Cap.w.dev 1 Cap IH DAILY Klor-Con M20 (Potassium Chloride) 20 Meq Tab.er.prt 20 Meq PO DAILY Melatonin 3 Mg Tablet 9 Mg PO HS Losartan Potassium 50 Mg Tablet 100 Mg PO DAILY Clopidogrel (Clopidogrel Bisulfate) 75 Mg Tablet 75 Mg PO DAILY Acetaminophen 500 Mg Tablet 500 Mg PO TID I have reviewed the current psychotropics carefully including drug interactions. Risk benefit ratio favors no change other than as noted in my dictated progress note. Diagnosis: Problems: (1) Major neurocognitive disorder (2) Anxiety disorder (3) Dementia, vascular, with depression (4) Depression (5) Dementia in Alzheimer's disease with depression (6) Dementia in Alzheimer's disease with delusions (7) Impulse control disorder BRITT HERRERA MD Sep 16, 2018 22:30
[2018-09-17] MEDS: ACETAMINOPHEN 325 MG TABLET PO PRN (02:57)
[2018-09-17] MEDS: IPRATRPIUM/ALBUTEROL 0.5/2.5MG 3 ML NEBU. NEB SCH ×4 (04:50→20:12)
[2018-09-17] MEDS: CEPHALEXIN 250 MG CAPSULE PO SCH (05:34)
[2018-09-17 06:02] VITALS: BP 125/84
[2018-09-17] MEDS: CLOPIDOGREL BISULFATE 75 MG TABLET PO SCH (07:52)
[2018-09-17] MEDS: LACTOBACILLUS RHAMNOSUS GG 1 CAPSULE. PO SCH ×2 (07:52→20:33)
[2018-09-17] MEDS: FUROSEMIDE 20 MG TABLET PO SCH (07:53)
[2018-09-17] MEDS: POTASSIUM CHLORIDE 20 MEQ TABLET.ER. PO SCH (07:53)
[2018-09-17] MEDS: LOSARTAN 50 MG TABLET. PO SCH (07:53)
[2018-09-17] MEDS: ACETAMINOPHEN 500 MG TABLET PO SCH ×4 (07:53→20:33)
[2018-09-17] MEDS: FLECAINIDE 50 MG TABLET. PO SCH ×2 (07:54→20:35)
[2018-09-17] MEDS: MELOXICAM 15 MG TABLET. PO SCH (07:54)
[2018-09-17] MEDS: NYSTATIN TOPICAL POWDER 15GM BOTTLE. TP SCH ×2 (08:00→20:33)
[2018-09-17] MEDS: BUDESONIDE 0.5 MG/2 ML NEBU NEB SCH ×2 (08:00→20:12)
[2018-09-17] MEDS: clonazePAM 0.5 MG TABLET PO PRN (10:52)
[2018-09-17 16:11] VITALS: BP 149/90
[2018-09-17] MEDS: clonazePAM 0.5 MG TABLET PO SCH (19:13)
[2018-09-17] MEDS: MELATONIN 3 MG TABLET PO SCH (20:33)
[2018-09-17] MEDS: traZODone 50 MG TABLET. PO SCH (20:35)
[2018-09-17] MEDS: MIRTAZAPINE 7.5 MG TABLET. PO SCH (20:36)
--- NOTE | 2018-09-17 22:33 | PDOC ---
Exam Note: Obdulio Note: Please also refer to the separate dictated note~for this date of service dictated separately.~Patient seen individually. Discussed the patient with Nursing staff reviewed the chart.~Reviewed interim history and current functioning. Reviewed vital signs,~Labs/ Radiology~and current medications noted below. Continue current treatment with the changes noted in the dictated addendum note Assessment: Vital Signs: Vital Signs Date Time Temp Pulse Resp B/P (MAP) Pulse Ox O2 Delivery O2 Flow Rate FiO2 09/17/18 20:35 72 149/90 09/17/18 20:19 95 Room Air 09/17/18 16:11 97.8 22 09/15/18 10:04 2.0 I&O Intake and Output 09/17/18 06:59 Intake Total 720 ml Balance 720 ml Intake Oral 720 ml Current Medications: Meds: Current Medications Acetaminophen (Tylenol) 650 mg PRN Q6HRS PRN PO PAIN / TEMP Last administered on 09/17/18at 02:57; Start 09/14/18 at 04:00 Multi-Ingredient Ointment (Analgesic [place]) 1 cindy PRN QID PRN TP MUSCLE PAIN; Start 09/14/18 at 04:00 Al Hydroxide/Mg Hydroxide (Mylanta Plus Xs) 15 ml PRN AFTMEALHC PRN PO DYSPEPSIA; Start 09/14/18 at 04:00 Magnesium Hydroxide (Milk Of Magnesia) 2,400 mg PRN QHS PRN PO CONSTIPATION; Start 09/14/18 at 04:00 Vitamin D (Vitamin D3) 2,000 unit DAILY PO ; Start 09/14/18 at 09:00; Stop 09/14/18 at 22:02; Status DC Clopidogrel Bisulfate (Plavix) 75 mg DAILY PO Last administered on 09/17/18at 07:52; Start 09/14/18 at 09:00 Diclofenac Sodium (Voltaren) 1 cindy PRN Q6HRS PRN TP PAIN; Start 09/14/18 at 05:30 Nystatin (Nystop) 1 cindy BID TP Last administered on 09/17/18at 20:33; Start 09/14/18 at 09:00 Potassium Chloride (Klor-Con) 20 meq DAILYWBKFT PO Last administered on 09/17/18at 07:53; Start 09/14/18 at 08:00 Tramadol HCl (Ultram) 25 mg PRN Q4HRS PRN PO PAIN; Start 09/14/18 at 05:30; Stop 09/14/18 at 21:20; Status DC Acetaminophen (Tylenol) 500 mg TID PO Last administered on 09/17/18at 20:33; Start 09/14/18 at 09:00 Carvedilol (Coreg) 3.125 mg BIDWMEALS PO Last administered on 09/14/18at 17:00; Start 09/14/18 at 08:00; Stop 09/14/18 at 18:39; Status DC Clonazepam (KlonoPIN) 1 mg BID PO Last administered on 09/14/18at 10:01; Start 09/14/18 at 09:00; Stop 09/14/18 at 17:35; Status DC Duloxetine HCl (Cymbalta) 30 mg DAILY PO ; Start 09/14/18 at 09:00; Stop 09/14/18 at 22:04; Status DC Losartan Potassium (Cozaar) 100 mg DAILY PO Last administered on 09/17/18at 07:53; Start 09/14/18 at 09:00 Melatonin 9 mg HS PO ; Start 09/14/18 at 21:00; Stop 09/14/18 at 21:00; Status DC Multivitamins/ Calcium (Thera-M Plus) 1 tab DAILY PO ; Start 09/14/18 at 09:00; Stop 09/14/18 at 22:02; Status DC Ondansetron HCl (Zofran Odt) 4 mg Q6HRS PO ; Start 09/14/18 at 06:00; Stop 09/14/18 at 06:23; Status DC Pregabalin (Lyrica) 150 mg BID PO Last administered on 09/14/18at 19:50; Start 09/14/18 at 09:00; Stop 09/14/18 at 22:02; Status DC Quetiapine Fumarate (SEROquel) 12.5 mg HS PO Last administered on 09/14/18at 19:51; Start 09/14/18 at 21:00; Stop 09/14/18 at 22:04; Status DC Sennosides (Senna) 8.6 mg PRN DAILY PRN PO CONSTIPATION; Start 09/14/18 at 05:30; Stop 09/14/18 at 18:39; Status DC Non-Formulary Medication (Tiotropium [place] (Spiriva)) 1 cap DAILY IH ; Start 09/14/18 at 09:00; Stop 09/14/18 at 09:00; Status DC Ondansetron HCl (Zofran Odt) 4 mg PRN Q6HRS PRN PO nausea; Start 09/14/18 at 06:30; Stop 09/14/18 at 22:02; Status DC Albuterol/ Ipratropium (Duoneb) 3 ml RTQID NEB Last administered on 09/17/18at 20:12; Start 09/14/18 at 08:00 Clonazepam (KlonoPIN) 1 mg DAILY PO ; Start 09/15/18 at 09:00; Stop 09/15/18 at 09:00; Status DC Clonazepam (KlonoPIN) 0.5 mg BID PO ; Start 09/18/18 at 09:00; Stop 09/18/18 at 09:00; Status DC Clonazepam (KlonoPIN) 0.5 mg QHS PO ; Start 09/14/18 at 21:00; Stop 09/14/18 at 21:00; Status DC Olanzapine (ZyPREXA ZYDIS) 2.5 mg PRN Q2HR PRN PO ANXIETY / AGITATION Last administered on 09/17/18at 22:23; Start 09/14/18 at 17:45 Melatonin 9 mg HS PO Last administered on 09/17/18 20:33; Start 09/14/18 at 21:00 Albuterol Sulfate (Ventolin) 2.5 mg RTQID NEB ; Start 09/15/18 at 08:00; Stop 09/15/18 at 13:58; Status DC Budesonide (Pulmicort) 0.5 mg RTBID NEB Last administered on 09/17/18at 20:12; Start 09/15/18 at 08:00 Albuterol Sulfate (Ventolin) 2.5 mg PRN Q4HRS PRN NEB SHORTNESS OF BREATH; Start 09/14/18 at 21:00 Furosemide (Lasix) 20 mg DAILY PO Last administered on 09/17/18at 07:53; Start 09/15/18 at 09:00 Guaifenesin (Mucinex Er) 600 mg BID PO Last administered on 09/17/18at 20:33; Start 09/15/18 at 09:00 Diltiazem HCl (Cardizem) 30 mg QID PO Last administered on 09/16/18 13:12; Start 09/15/18 at 09:00; Stop 09/16/18 at 16:23; Status DC Flecainide Acetate (Tambocor) 50 mg Q12HR PO Last administered on 09/17/18 20:35; Start 09/15/18 at 09:00 Meloxicam (Mobic) 15 mg DAILY PO Last administered on 09/17/18 07:54; Start 09/15/18 at 09:00 Clonazepam (KlonoPIN) 0.25 mg 1900 PO Last administered on 09/15/18 18:04; Start 09/15/18 at 19:00; Stop 09/16/18 at 16:57; Status DC Clonazepam (KlonoPIN) 0.25 mg PRN Q8HRS PRN PO ANXIETY / AGITATION Last administered on 09/17/18 10:52; Start 09/14/18 at 22:00 Cephalexin HCl (Keflex) 500 mg Q8HRS PO Last administered on 09/17/18 05:34; Start 09/15/18 at 06:00; Stop 09/17/18 at 12:47; Status DC Lactobacillus Rhamnosus (Culturelle) 1 cap BID PO Last administered on 09/17/18 20:33; Start 09/15/18 at 09:00 Diltiazem HCl (Cardizem 24hr Cd) 120 mg DAILY PO Last administered on 09/17/18 08:02; Start 09/17/18 at 09:00 Clonazepam (KlonoPIN) 0.25 mg 1900 PO Last administered on 09/17/18 19:13; Start 09/16/18 at 20:00 Ceftriaxone Sodium (Rocephin Im) 1 gm DAILY IM ; Start 09/18/18 at 09:00 Mirtazapine (Remeron) 7.5 mg QHS PO Last administered on 09/17/18 20:36; Start 09/17/18 at 21:00 Trazodone HCl (Desyrel) 50 mg QHS PO Last administered on 09/17/18 20:35; Start 09/17/18 at 21:00 Trazodone HCl (Desyrel) 50 mg PRN QHS PRN PO INSOMNIA; Start 09/17/18 at 20:30 Active Scripts Active Reported Cephalexin 500 Mg Capsule 500 Mg PO Q8HRS 7 Days Meloxicam 15 Mg Tablet 15 Mg PO DAILY Mucinex (Guaifenesin) 600 Mg Tablet.er 600 Mg PO BID Furosemide 20 Mg Tablet 20 Mg PO DAILY Flecainide Acetate 50 Mg Tablet 50 Mg PO BIDWMEALS Diltiazem 24Hr ER (Diltiazem HCl) 180 Mg Tab.er.24h 180 Mg PO DAILY Clonazepam 0.5 Mg Tablet 0.25 Mg PO PRN Q8HRS PRN Clonazepam 0.5 Mg Tablet 0.25 Mg PO DAILY19(DAILY @1900) Voltaren (Diclofenac Sodium) 100 Gm Gel..gram. 1 Cindy TP Q6HRS Nystatin 15 Gm Powder 1 Cindy TP BID Spiriva (Tiotropium [place]) 18 Mcg Cap.w.dev 1 Cap IH DAILY Klor-Con M20 (Potassium Chloride) 20 Meq Tab.er.prt 20 Meq PO DAILY Melatonin 3 Mg Tablet 9 Mg PO HS Losartan Potassium 50 Mg Tablet 100 Mg PO DAILY Clopidogrel (Clopidogrel Bisulfate) 75 Mg Tablet 75 Mg PO DAILY Acetaminophen 500 Mg Tablet 500 Mg PO TID I have reviewed the current psychotropics carefully including drug interactions. Risk benefit ratio favors no change other than as noted in my dictated progress note. Diagnosis: Problems: (1) Major neurocognitive disorder (2) Anxiety disorder (3) Dementia, vascular, with depression (4) Depression (5) Dementia in Alzheimer's disease with depression (6) Dementia in Alzheimer's disease with delusions (7) Impulse control disorder BRITT HERRERA MD Sep 17, 2018 22:33
[2018-09-18] MEDS: IPRATRPIUM/ALBUTEROL 0.5/2.5MG 3 ML NEBU. NEB SCH ×4 (05:28→20:00)
--- NOTE | 2018-09-18 06:04 | PN ---
DATE: 09/15/2018 PSYCHIATRIC PROGRESS NOTE This late entry for 09/15/2018 covers elements not covered in my initial note. SUBJECTIVE: I met with the patient in the evening. The patient slept 7-3/4 hours previous night. She has not been combative, remains confused, compliant with medications, having repetitive coughing. She did well the previous night and during the day on 09/15/2018. Does better with her meds. She put herself on the floor around breakfast time. REVIEW OF SYSTEMS: No CV, , pulmonary, eye, ENT system symptoms on review. Reliability poor. She does have scoliosis. MENTAL STATUS EXAM: Oriented to herself. Insight, judgment, recent and remote memory, attention, concentration, fund of knowledge poor, consistent with her diagnosis mentioned in my initial note. PLAN: No change from initial note. Maintain Cymbalta, Klonopin and Seroquel, but we may need to adjust the Seroquel and reduce the melatonin. BRITT HERRERA MD DR: MEREDITH/rekha JOB#: [id number] / [id number]
[2018-09-18 06:16] VITALS: BP 155/71
--- NOTE | 2018-09-18 06:55 | PN ---
DATE: 09/16/2018 PSYCHIATRIC PROGRESS NOTE This late entry 09/16/2018 covers elements not covered in my initial note. SUBJECTIVE: I met with the patient in the evening. The patient slept 4 hours previous night. The patient remains confused, agitated in the morning after she was given her medications, little better. REVIEW OF SYSTEMS: No CV, , pulmonary, eye, ENT system symptoms on review. She does ambulate with a walker, bent forward, does have scoliosis. No CV, , pulmonary, eye system symptoms on review. Reliability poor. MENTAL STATUS EXAM: Oriented to herself. Insight, judgment, recent and remote memory, attention, concentration, fund of knowledge poor, consistent with her diagnoses. IMPRESSION: Major neurocognitive disorder, Alzheimer, vascular with delusion, depression, behavioral disturbance; anxiety disorder, unspecified; impulse control disorder, unspecified; urinary tract infection. Rest unchanged. PLAN: Continue Klonopin 0.5 mg at bedtime, melatonin 3 mg at bedtime, Zyprexa p.r.n. We will make further adjustments in her psychotropics depending on how she does with the resolution of UTI and whether the agitation subsides or not. She may be a candidate for SSRIs and perhaps the addition of Seroquel as a mood stabilizer. BRITT HERRERA MD DR: MEREDITH/rekha JOB#: [id number] / [id number]
[2018-09-18 07:25] LABS: BASO # 0.1 x10^3/uL (0.0-0.2); BASO % 1 % (0-3); EOS # 0.3 x10^3/uL (0.0-0.7); EOS % 6 % (0-3); HEMATOCRIT 33.9 % (36.0-47.0); HEMOGLOBIN 11.4 g/dL (12.0-15.5); LYMPH # 1.2 x10^3/uL (1.0-4.8); LYMPH % 22 % (24-48); MEAN CORPUSCULAR HEMOGLOBIN 31 pg (25-35); MEAN CORPUSCULAR HGB CONC 34 g/dL (31-37); MEAN CORPUSCULAR VOLUME 92 fL (79-100); MONO # 0.7 x10^3/uL (0.0-1.1); MONO % 12 % (0-9); NEUT # 3.4 x10^3uL (1.8-7.7); NEUT % 60 % (31-73); PLATELET COUNT 309 x10^3/uL (140-400); RED BLOOD COUNT 3.69 x10^6/uL (3.50-5.40); RED CELL DISTRIBUTION WIDTH 16.2 % (11.5-14.5); WHITE BLOOD COUNT 5.6 x10^3/uL (4.0-11.0)
--- NOTE | 2018-09-18 07:39 | PN ---
DATE: 09/17/2018 PSYCHIATRIC PROGRESS NOTE This note covers elements not covered in my initial note. SUBJECTIVE: I met with the patient in the evening. The patient slept for 3/4 hours previous night, refused medications, took them later, and did have a shower. Earlier in the day, she was agitated, ripped off her oxygen despite her COPD, was extremely agitated during showers with nursing staff, berating the nursing staff; telling them if they wanted to see her privates. O2 sats dropped and staff are trying to encourage compliance with oxygen. She does have scoliosis. REVIEW OF SYSTEMS: Impaired ambulation. No CV, , GI system symptoms on review. Reliability poor. UA is being repeated. MENTAL STATUS EXAM: Oriented to herself. Insight, judgment, recent and remote memory, attention, concentration, fund of knowledge poor, consistent with her diagnoses. IMPRESSION: Major neurocognitive disorder, Alzheimer, vascular with delusion, depression, behavioral disturbance; anxiety disorder, unspecified; impulse control disorder, unspecified; urinary tract infection. PLAN: Start Remeron 7.5 mg p.o. at bedtime; trazodone 50 mg at bedtime, may repeat x 1 for insomnia; treat the UTI. Maintain Klonopin, melatonin, Zyprexa as p.r.n. Consider Depakote as a mood stabilizer. MAN Adilia HERRERA MD DR: MEREDITH/rekha JOB#: [id number] / [id number]
[2018-09-18 07:41] LABS: ALBUMIN 3.1 g/dL (3.4-5.0); ALBUMIN/GLOBULIN RATIO 0.8 (1.0-1.7); CALCIUM 9.3 mg/dL (8.5-10.1); CREATININE 0.7 mg/dL (0.6-1.0); GFR 80.1; POTASSIUM 4.3 mmol/L (3.5-5.1); TOTAL BILIRUBIN 0.4 mg/dL (0.2-1.0); TOTAL PROTEIN 6.9 g/dL (6.4-8.2)
[2018-09-18] MEDS: BUDESONIDE 0.5 MG/2 ML NEBU NEB SCH ×2 (08:00→20:00)
[2018-09-18] MEDS: POTASSIUM CHLORIDE 20 MEQ TABLET.ER. PO SCH ×2 (08:00→09:29)
[2018-09-18] MEDS ORDERED: clonazePAM 0.5 MG TABLET PO SCH (09:00)
[2018-09-18] MEDS ORDERED: cefTRIAXone IM 1 GM VIAL IM SCH (09:00)
[2018-09-18] MEDS: LOSARTAN 50 MG TABLET. PO SCH ×2 (09:00→09:30)
[2018-09-18] MEDS: CLOPIDOGREL BISULFATE 75 MG TABLET PO SCH ×2 (09:00→09:28)
[2018-09-18] MEDS: MELOXICAM 15 MG TABLET. PO SCH ×2 (09:00→09:29)
[2018-09-18] MEDS: NYSTATIN TOPICAL POWDER 15GM BOTTLE. TP SCH ×3 (09:00→19:49)
[2018-09-18] MEDS: LACTOBACILLUS RHAMNOSUS GG 1 CAPSULE. PO SCH ×3 (09:00→19:49)
[2018-09-18] MEDS: FLECAINIDE 50 MG TABLET. PO SCH ×3 (09:00→19:59)
[2018-09-18] MEDS: FUROSEMIDE 20 MG TABLET PO SCH ×2 (09:00→09:30)
[2018-09-18] MEDS: ACETAMINOPHEN 500 MG TABLET PO SCH ×4 (09:00→19:49)
--- NOTE | 2018-09-18 11:21 | RAD ---
AP portable chest radiograph 09/18/2018 Clinical History: Crackles, wheezing and shortness of breath. Two AP erect portable digital radiographs of the chest were obtained. Comparison study is dated 08/18/2018. This was performed at [facility]. The cardiac silhouette is mildly enlarged. Atherosclerotic calcification of the thoracic aorta is seen. The thoracic aorta is tortuous. Linear bands of subsegmental atelectasis and/or scarring are seen involving both mid lungs. Small calcified granulomas are seen bilaterally. The right arm PICC seen on the previous examination has been removed. No area of consolidation is seen. The congestive changes seen on the previous examination have improved. No pneumothorax or pleural effusion is noted. The osseous structures are unchanged. Impression: No area of consolidation is seen. Electronically signed by: Gavino Estrada MD (09/18/2018 11:19 AM) [id number]
[2018-09-18 12:15] LABS: AMORPHOUS SEDIMENT,UR PRESENT /HPF; BACTERIA,URINE 0 /HPF (0-FEW); BILIRUBIN,URINE NEG (NEG); CLARITY,URINE CLOUDY; COLOR,URINE YELLOW; GLUCOSE,URINE NEG (NEG); NITRITE,URINE NEG (NEG); RBC,URINE 0 /HPF (0-2); SQUAMOUS EPITHELIAL CELL,UR OCC /LPF; UROBILINOGEN,URINE 0.2 mg/dL (0.2 mg/dL); WBC,URINE RARE /HPF (0-4)
[2018-09-18] MEDS: clonazePAM 0.5 MG TABLET PO PRN ×2 (13:31→23:03)
[2018-09-18 15:58] VITALS: BP 120/81
[2018-09-18] MEDS: clonazePAM 0.5 MG TABLET PO SCH (19:14)
[2018-09-18] MEDS: MAGNESIUM HYDROXIDE 2,400 MG/30 ML ORAL.SUSP. PO PRN (19:14)
[2018-09-18] MEDS: MIRTAZAPINE 7.5 MG TABLET. PO SCH (19:48)
[2018-09-18] MEDS: MELATONIN 3 MG TABLET PO SCH (19:49)
[2018-09-18] MEDS: traZODone 50 MG TABLET. PO SCH (19:49)
--- NOTE | 2018-09-18 22:18 | PDOC ---
Exam Note: Obdulio Note: Please also refer to the separate dictated note~for this date of service dictated separately.~Patient seen individually. Discussed the patient with Nursing staff reviewed the chart.~Reviewed interim history and current functioning. Reviewed vital signs,~Labs/ Radiology~and current medications noted below. Continue current treatment with the changes noted in the dictated addendum note Assessment: Vital Signs: Vital Signs Date Time Temp Pulse Resp B/P (MAP) Pulse Ox O2 Delivery O2 Flow Rate FiO2 09/18/18 19:59 120 120/81 09/18/18 15:58 97.4 18 97 09/18/18 06:16 3.0 09/17/18 20:19 Room Air I&O Intake and Output 09/18/18 07:00 Intake Total 360 ml Balance 360 ml Intake Oral 360 ml Labs: Laboratory Tests Test 09/18/18 06:51 09/18/18 06:56 09/18/18 11:44 Sodium Level 146 mmol/L (136-145) H Potassium Level 4.3 mmol/L (3.5-5.1) Chloride Level 108 mmol/L (98-107) H Carbon Dioxide Level 29 mmol/L (21-32) Anion Gap 9 (6-14) Blood Urea Nitrogen 12 mg/dL (7-20) Creatinine 0.7 mg/dL (0.6-1.0) Estimated GFR (Cockcroft-Gault) 80.1 BUN/Creatinine Ratio 17 (6-20) Glucose Level 94 mg/dL (70-99) Calcium Level 9.3 mg/dL (8.5-10.1) Total Bilirubin 0.4 mg/dL (0.2-1.0) Aspartate Amino Transferase (AST) 12 U/L (15-37) L Alanine Aminotransferase (ALT) 16 U/L (14-59) Alkaline Phosphatase 85 U/L (46-116) Total Protein 6.9 g/dL (6.4-8.2) Albumin 3.1 g/dL (3.4-5.0) L Albumin/Globulin Ratio 0.8 (1.0-1.7) L White Blood Count 5.6 x10^3/uL (4.0-11.0) Red Blood Count 3.69 x10^6/uL (3.50-5.40) Hemoglobin 11.4 g/dL (12.0-15.5) L Hematocrit 33.9 % (36.0-47.0) L Mean Corpuscular Volume 92 fL (79-100) Mean Corpuscular Hemoglobin 31 pg (25-35) Mean Corpuscular Hemoglobin Concent 34 g/dL (31-37) Red Cell Distribution Width 16.2 % (11.5-14.5) H Platelet Count 309 x10^3/uL (140-400) Neutrophils (%) (Auto) 60 % (31-73) Lymphocytes (%) (Auto) 22 % (24-48) L Monocytes (%) (Auto) 12 % (0-9) H Eosinophils (%) (Auto) 6 % (0-3) H Basophils (%) (Auto) 1 % (0-3) Neutrophils # (Auto) 3.4 x10^3uL (1.8-7.7) Lymphocytes # (Auto) 1.2 x10^3/uL (1.0-4.8) Monocytes # (Auto) 0.7 x10^3/uL (0.0-1.1) Eosinophils # (Auto) 0.3 x10^3/uL (0.0-0.7) Basophils # (Auto) 0.1 x10^3/uL (0.0-0.2) Lactic Acid Level 1.3 mmol/L (0.4-2.0) Urine Collection Type Void Urine Color Yellow Urine Clarity Cloudy Urine pH 7.5 Urine Specific [place] 1.015 Urine Protein Neg (NEG-TRACE) Urine Glucose (UA) Neg mg/dL (NEG) Urine Ketones (Stick) Neg mg/dL (NEG) Urine Blood Neg (NEG) Urine Nitrite Neg (NEG) Urine Bilirubin Neg (NEG) Urine Urobilinogen Dipstick 0.2 mg/dL (0.2 mg/dL) Urine Leukocyte Esterase Neg (NEG) Urine RBC 0 /HPF (0-2) Urine WBC Rare /HPF (0-4) Urine Squamous Epithelial Cells Occ /LPF Urine Amorphous Sediment Present /HPF Urine Bacteria 0 /HPF (0-FEW) Urine Mucus Slight /LPF Current Medications: Meds: Current Medications Acetaminophen (Tylenol) 650 mg PRN Q6HRS PRN PO PAIN / TEMP Last administered on 09/17/18at 02:57; Start 09/14/18 at 04:00 Multi-Ingredient Ointment (Analgesic [place]) 1 cindy PRN QID PRN TP MUSCLE PAIN; Start 09/14/18 at 04:00 Al Hydroxide/Mg Hydroxide (Mylanta Plus Xs) 15 ml PRN AFTMEALHC PRN PO DYSPEPSIA; Start 09/14/18 at 04:00 Magnesium Hydroxide (Milk Of Magnesia) 2,400 mg PRN QHS PRN PO CONSTIPATION Last administered on 09/18/18 19:14; Start 09/14/18 at 04:00 Vitamin D (Vitamin D3) 2,000 unit DAILY PO ; Start 09/14/18 at 09:00; Stop 09/14/18 at 22:02; Status DC Clopidogrel Bisulfate (Plavix) 75 mg DAILY PO Last administered on 09/17/18 07:52; Start 09/14/18 at 09:00 Diclofenac Sodium (Voltaren) 1 cindy PRN Q6HRS PRN TP PAIN; Start 09/14/18 at 05:30 Nystatin (Nystop) 1 cindy BID TP Last administered on 09/18/18 19:49; Start 09/14/18 at 09:00 Potassium Chloride (Klor-Con) 20 meq DAILYWBKFT PO Last administered on 09/17/18 07:53; Start 09/14/18 at 08:00 Tramadol HCl (Ultram) 25 mg PRN Q4HRS PRN PO PAIN; Start 09/14/18 at 05:30; Stop 09/14/18 at 21:20; Status DC Acetaminophen (Tylenol) 500 mg TID PO Last administered on 09/18/18 19:49; Start 09/14/18 at 09:00 Carvedilol (Coreg) 3.125 mg BIDWMEALS PO Last administered on 09/14/18 17:00; Start 09/14/18 at 08:00; Stop 09/14/18 at 18:39; Status DC Clonazepam (KlonoPIN) 1 mg BID PO Last administered on 09/14/18at 10:01; Start 09/14/18 at 09:00; Stop 09/14/18 at 17:35; Status DC Duloxetine HCl (Cymbalta) 30 mg DAILY PO ; Start 09/14/18 at 09:00; Stop at 22:04; Status DC Losartan Potassium (Cozaar) 100 mg DAILY PO Last administered on 09/17/18at 07:53; Start 09/14/18 at 09:00 Melatonin 9 mg HS PO ; Start 09/14/18 at 21:00; Stop 09/14/18 at 21:00; Status DC Multivitamins/ Calcium (Thera-M Plus) 1 tab DAILY PO ; Start 09/14/18 at 09:00; Stop 09/14/18 at 22:02; Status DC Ondansetron HCl (Zofran Odt) 4 mg Q6HRS PO ; Start 09/14/18 at 06:00; Stop 09/14/18 at 06:23; Status DC Pregabalin (Lyrica) 150 mg BID PO Last administered on 09/14/18at 19:50; Start 09/14/18 at 09:00; Stop 09/14/18 at 22:02; Status DC Quetiapine Fumarate (SEROquel) 12.5 mg HS PO Last administered on 09/14/18at 19:51; Start 09/14/18 at 21:00; Stop 09/14/18 at 22:04; Status DC Sennosides (Senna) 8.6 mg PRN DAILY PRN PO CONSTIPATION; Start 09/14/18 at 05:30; Stop 09/14/18 at 18:39; Status DC Non-Formulary Medication (Tiotropium [place] (Spiriva)) 1 cap DAILY IH ; Start 09/14/18 at 09:00; Stop 09/14/18 at 09:00; Status DC Ondansetron HCl (Zofran Odt) 4 mg PRN Q6HRS PRN PO nausea; Start 09/14/18 at 06:30; Stop 09/14/18 at 22:02; Status DC Albuterol/ Ipratropium (Duoneb) 3 ml RTQID NEB Last administered on 09/17/18at 20:12; Start 09/14/18 at 08:00 Clonazepam (KlonoPIN) 1 mg DAILY PO ; Start 09/15/18 at 09:00; Stop 09/15/18 at 09:00; Status DC Clonazepam (KlonoPIN) 0.5 mg BID PO ; Start 09/18/18 at 09:00; Stop 09/18/18 at 09:00; Status DC Clonazepam (KlonoPIN) 0.5 mg QHS PO ; Start 09/14/18 at 21:00; Stop 09/14/18 at 21:00; Status DC Olanzapine (ZyPREXA ZYDIS) 2.5 mg PRN Q2HR PRN PO ANXIETY / AGITATION Last administered on 09/18/18 13:31; Start 09/14/18 at 17:45 Melatonin 9 mg HS PO Last administered on 09/18/18 19:49; Start 09/14/18 at 21:00 Albuterol Sulfate (Ventolin) 2.5 mg RTQID NEB ; Start 09/15/18 at 08:00; Stop 09/15/18 at 13:58; Status DC Budesonide (Pulmicort) 0.5 mg RTBID NEB Last administered on 09/17/18 20:12; Start 09/15/18 at 08:00 Albuterol Sulfate (Ventolin) 2.5 mg PRN Q4HRS PRN NEB SHORTNESS OF BREATH; Start 09/14/18 at 21:00 Furosemide (Lasix) 20 mg DAILY PO Last administered on 09/17/18 07:53; Start 09/15/18 at 09:00 Guaifenesin (Mucinex Er) 600 mg BID PO Last administered on 09/18/18 19:49; Start 09/15/18 at 09:00 Diltiazem HCl (Cardizem) 30 mg QID PO Last administered on 09/16/18 13:12; Start 09/15/18 at 09:00; Stop 09/16/18 at 16:23; Status DC Flecainide Acetate (Tambocor) 50 mg Q12HR PO Last administered on 09/18/18 19:59; Start 09/15/18 at 09:00 Meloxicam (Mobic) 15 mg DAILY PO Last administered on 09/17/18 07:54; Start 09/15/18 at 09:00 Clonazepam (KlonoPIN) 0.25 mg 1900 PO Last administered on 09/15/18 18:04; Start 09/15/18 at 19:00; Stop 09/16/18 at 16:57; Status DC Clonazepam (KlonoPIN) 0.25 mg PRN Q8HRS PRN PO ANXIETY / AGITATION Last administered on 09/18/18at 13:31; Start 09/14/18 at 22:00 Cephalexin HCl (Keflex) 500 mg Q8HRS PO Last administered on 09/17/18at 05:34; Start 09/15/18 at 06:00; Stop 09/17/18 at 12:47; Status DC Lactobacillus Rhamnosus (Culturelle) 1 cap BID PO Last administered on 09/18/18at 19:49; Start 09/15/18 at 09:00 Diltiazem HCl (Cardizem 24hr Cd) 120 mg DAILY PO Last administered on 09/17/18at 08:02; Start 09/17/18 at 09:00 Clonazepam (KlonoPIN) 0.25 mg 1900 PO Last administered on 09/18/18at 19:14; Start 09/16/18 at 20:00 Ceftriaxone Sodium (Rocephin Im) 1 gm DAILY IM ; Start 09/18/18 at 09:00 Mirtazapine (Remeron) 7.5 mg QHS PO Last administered on 09/18/18at 19:48; Start 09/17/18 at 21:00 Trazodone HCl (Desyrel) 50 mg QHS PO Last administered on 09/18/18at 19:49; Start 09/17/18 at 21:00 Trazodone HCl (Desyrel) 50 mg PRN QHS PRN PO INSOMNIA; Start 09/17/18 at 20:30 Active Scripts Active Reported Cephalexin 500 Mg Capsule 500 Mg PO Q8HRS 7 Days Meloxicam 15 Mg Tablet 15 Mg PO DAILY Mucinex (Guaifenesin) 600 Mg Tablet.er 600 Mg PO BID Furosemide 20 Mg Tablet 20 Mg PO DAILY Flecainide Acetate 50 Mg Tablet 50 Mg PO BIDWMEALS Diltiazem 24Hr ER (Diltiazem HCl) 180 Mg Tab.er.24h 180 Mg PO DAILY Clonazepam 0.5 Mg Tablet 0.25 Mg PO PRN Q8HRS PRN Clonazepam 0.5 Mg Tablet 0.25 Mg PO DAILY19(DAILY @1900) Voltaren (Diclofenac Sodium) 100 Gm Gel..gram. 1 Cindy TP Q6HRS Nystatin 15 Gm Powder 1 Cindy TP BID Spiriva (Tiotropium [place]) 18 Mcg Cap.w.dev 1 Cap IH DAILY Klor-Con M20 (Potassium Chloride) 20 Meq Tab.er.prt 20 Meq PO DAILY Melatonin 3 Mg Tablet 9 Mg PO HS Losartan Potassium 50 Mg Tablet 100 Mg PO DAILY Clopidogrel (Clopidogrel Bisulfate) 75 Mg Tablet 75 Mg PO DAILY Acetaminophen 500 Mg Tablet 500 Mg PO TID I have reviewed the current psychotropics carefully including drug interactions. Risk benefit ratio favors no change other than as noted in my dictated progress note. Diagnosis: Problems: (1) Major neurocognitive disorder (2) Anxiety disorder (3) Dementia, vascular, with depression (4) Depression (5) Dementia in Alzheimer's disease with depression (6) Dementia in Alzheimer's disease with delusions (7) Impulse control disorder BRITT HERRERA MD Sep 18, 2018 22:18
[2018-09-18] MEDS: traZODone 50 MG TABLET. PO PRN (23:03)
[2018-09-19] MEDS: IPRATRPIUM/ALBUTEROL 0.5/2.5MG 3 ML NEBU. NEB SCH ×4 (05:17→20:38)
[2018-09-19] MEDS: BUDESONIDE 0.5 MG/2 ML NEBU NEB SCH ×2 (05:17→20:38)
[2018-09-19 05:40] VITALS: BP 156/86
[2018-09-19] MEDS: LOSARTAN 50 MG TABLET. PO SCH (09:29)
[2018-09-19] MEDS: LACTOBACILLUS RHAMNOSUS GG 1 CAPSULE. PO SCH ×2 (09:29→19:30)
[2018-09-19] MEDS: MELOXICAM 15 MG TABLET. PO SCH (09:29)
[2018-09-19] MEDS: ACETAMINOPHEN 500 MG TABLET PO SCH ×4 (09:29→19:31)
[2018-09-19] MEDS: POTASSIUM CHLORIDE 20 MEQ TABLET.ER. PO SCH (09:30)
[2018-09-19] MEDS: FUROSEMIDE 20 MG TABLET PO SCH (09:30)
[2018-09-19] MEDS: CLOPIDOGREL BISULFATE 75 MG TABLET PO SCH (09:30)
[2018-09-19] MEDS: ACETAMINOPHEN 325 MG TABLET PO PRN (09:31)
[2018-09-19] MEDS: NYSTATIN TOPICAL POWDER 15GM BOTTLE. TP SCH ×2 (09:31→19:32)
[2018-09-19] MEDS: FLECAINIDE 50 MG TABLET. PO SCH ×2 (09:32→19:34)
[2018-09-19 16:23] VITALS: BP 110/50
[2018-09-19] MEDS: clonazePAM 0.5 MG TABLET PO SCH (19:22)
[2018-09-19] MEDS: traZODone 50 MG TABLET. PO SCH (19:30)
[2018-09-19] MEDS: MELATONIN 3 MG TABLET PO SCH (19:30)
[2018-09-19] MEDS: PATCH REMOVAL. MC SCH (19:32)
[2018-09-19] MEDS: MIRTAZAPINE 15 MG TABLET PO SCH (19:32)
--- NOTE | 2018-09-19 21:27 | PN ---
DATE: 09/18/2018 PSYCHIATRIC PROGRESS NOTE This late entry 09/18/2018 covers elements not covered in my initial note. SUBJECTIVE: I met with the patient in the evening of 09/18/2018. rail track layer per nursing report, the patient was quite delusional, resistive to cares, refused medications, refused her oxygen. She did a little better later in the day. UA shows 20,000, but clinically nonsignificant, slept 5-1/2 hours previous night. We will repeat UA and also check a chest x-ray. REVIEW OF SYSTEMS: No CV, , pulmonary, eye, ENT system symptoms on review. Reliability poor. MENTAL STATUS EXAM: Oriented to herself. Insight, judgment, recent and remote memory, attention, concentration, fund of knowledge poor, consistent with her diagnosis mentioned in my initial note. PLAN: No change from initial note other than what is noted above and we previously added Remeron and trazodone. BRITT HERRERA MD DR: MEREDITH/rekha JOB#: [id number] / [id number]
--- NOTE | 2018-09-19 22:33 | PDOC ---
Exam Note: Obdulio Note: Please also refer to the separate dictated note~for this date of service dictated separately.~Patient seen individually. Discussed the patient with Nursing staff reviewed the chart.~Reviewed interim history and current functioning. Reviewed vital signs,~Labs/ Radiology~and current medications noted below. Continue current treatment with the changes noted in the dictated addendum note Assessment: Vital Signs: Vital Signs Date Time Temp Pulse Resp B/P (MAP) Pulse Ox O2 Delivery O2 Flow Rate FiO2 09/19/18 20:41 97 Nasal Cannula 2.0 09/19/18 19:34 71 110/50 09/19/18 16:23 97.7 16 I&O Intake and Output 09/19/18 06:59 Intake Total 840 ml Balance 840 ml Intake Oral 840 ml # Voids 1 # Bowel Movements 1 Current Medications: Meds: Current Medications Acetaminophen (Tylenol) 650 mg PRN Q6HRS PRN PO PAIN / TEMP Last administered on 09/19/18at 09:31; Start 09/14/18 at 04:00 Multi-Ingredient Ointment (Analgesic [place]) 1 cindy PRN QID PRN TP MUSCLE PAIN; Start 09/14/18 at 04:00 Al Hydroxide/Mg Hydroxide (Mylanta Plus Xs) 15 ml PRN AFTMEALHC PRN PO DYSPEPSIA; Start 09/14/18 at 04:00 Magnesium Hydroxide (Milk Of Magnesia) 2,400 mg PRN QHS PRN PO CONSTIPATION Last administered on 09/18/18at 19:14; Start 09/14/18 at 04:00 Vitamin D (Vitamin D3) 2,000 unit DAILY PO ; Start 09/14/18 at 09:00; Stop 09/14/18 at 22:02; Status DC Clopidogrel Bisulfate (Plavix) 75 mg DAILY PO Last administered on 09/19/18 09:30; Start 09/14/18 at 09:00 Diclofenac Sodium (Voltaren) 1 cindy PRN Q6HRS PRN TP PAIN; Start 09/14/18 at 05:30 Nystatin (Nystop) 1 cindy BID TP Last administered on 09/19/18at 19:32; Start 09/14/18 at 09:00 Potassium Chloride (Klor-Con) 20 meq DAILYWBKFT PO Last administered on 09/19/18at 09:30; Start 09/14/18 at 08:00 Tramadol HCl (Ultram) 25 mg PRN Q4HRS PRN PO PAIN; Start 09/14/18 at 05:30; Stop 09/14/18 at 21:20; Status DC Acetaminophen (Tylenol) 500 mg TID PO Last administered on 09/19/18at 19:31; Start 09/14/18 at 09:00 Carvedilol (Coreg) 3.125 mg BIDWMEALS PO Last administered on 09/14/18at 17:00; Start 09/14/18 at 08:00; Stop 09/14/18 at 18:39; Status DC Clonazepam (KlonoPIN) 1 mg BID PO Last administered on 09/14/18at 10:01; Start 09/14/18 at 09:00; Stop 09/14/18 at 17:35; Status DC Duloxetine HCl (Cymbalta) 30 mg DAILY PO ; Start 09/14/18 at 09:00; Stop 09/14/18 at 22:04; Status DC Losartan Potassium (Cozaar) 100 mg DAILY PO Last administered on 09/19/18at 09:29; Start 09/14/18 at 09:00 Melatonin 9 mg HS PO ; Start 09/14/18 at 21:00; Stop 09/14/18 at 21:00; Status DC Multivitamins/ Calcium (Thera-M Plus) 1 tab DAILY PO ; Start 09/14/18 at 09:00; Stop 09/14/18 at 22:02; Status DC Ondansetron HCl (Zofran Odt) 4 mg Q6HRS PO ; Start 09/14/18 at 06:00; Stop at 06:23; Status DC Pregabalin (Lyrica) 150 mg BID PO Last administered on 09/14/18at 19:50; Start 09/14/18 at 09:00; Stop 09/14/18 at 22:02; Status DC Quetiapine Fumarate (SEROquel) 12.5 mg HS PO Last administered on 09/14/18at 19:51; Start 09/14/18 at 21:00; Stop 09/14/18 at 22:04; Status DC Sennosides (Senna) 8.6 mg PRN DAILY PRN PO CONSTIPATION; Start 09/14/18 at 05: 30; Stop 09/14/18 at 18:39; Status DC Non-Formulary Medication (Tiotropium [place] (Spiriva)) 1 cap DAILY IH ; Start 09/14/18 at 09:00; Stop 09/14/18 at 09:00; Status DC Ondansetron HCl (Zofran Odt) 4 mg PRN Q6HRS PRN PO nausea; Start 09/14/18 at 06:30; Stop 09/14/18 at 22:02; Status DC Albuterol/ Ipratropium (Duoneb) 3 ml RTQID NEB Last administered on 09/19/18at 20:38; Start 09/14/18 at 08:00 Clonazepam (KlonoPIN) 1 mg DAILY PO ; Start 09/15/18 at 09:00; Stop 09/15/18 at 09:00; Status DC Clonazepam (KlonoPIN) 0.5 mg BID PO ; Start 09/18/18 at 09:00; Stop 09/18/18 at 09:00; Status DC Clonazepam (KlonoPIN) 0.5 mg QHS PO ; Start 09/14/18 at 21:00; Stop 09/14/18 at 21:00; Status DC Olanzapine (ZyPREXA ZYDIS) 2.5 mg PRN Q2HR PRN PO ANXIETY / AGITATION Last administered on 09/18/18at 22:34; Start 09/14/18 at 17:45 Melatonin 9 mg HS PO Last administered on 09/19/18at 19:30; Start 09/14/18 at 21:00 Albuterol Sulfate (Ventolin) 2.5 mg RTQID NEB ; Start 09/15/18 at 08:00; Stop 09/15/18 at 13:58; Status DC Budesonide (Pulmicort) 0.5 mg RTBID NEB Last administered on 09/19/18at 20:38; Start 09/15/18 at 08:00 Albuterol Sulfate (Ventolin) 2.5 mg PRN Q4HRS PRN NEB SHORTNESS OF BREATH; Start 09/14/18 at 21:00 Furosemide (Lasix) 20 mg DAILY PO Last administered on 09/19/18at 09:30; Start 09/15/18 at 09:00 Guaifenesin (Mucinex Er) 600 mg BID PO Last administered on 09/19/18 19:30; Start 09/15/18 at 09:00 Diltiazem HCl (Cardizem) 30 mg QID PO Last administered on 09/16/18 13:12; Start 09/15/18 at 09:00; Stop 09/16/18 at 16:23; Status DC Flecainide Acetate (Tambocor) 50 mg Q12HR PO Last administered on 09/19/18 19:34; Start 09/15/18 at 09:00 Meloxicam (Mobic) 15 mg DAILY PO Last administered on 09/19/18 09:29; Start 09/15/18 at 09:00 Clonazepam (KlonoPIN) 0.25 mg 1900 PO Last administered on 09/15/18 18:04; Start 09/15/18 at 19:00; Stop 09/16/18 at 16:57; Status DC Clonazepam (KlonoPIN) 0.25 mg PRN Q8HRS PRN PO ANXIETY / AGITATION Last administered on 09/18/18 23:03; Start 09/14/18 at 22:00 Cephalexin HCl (Keflex) 500 mg Q8HRS PO Last administered on 09/17/18 05:34; Start 09/15/18 at 06:00; Stop 09/17/18 at 12:47; Status DC Lactobacillus Rhamnosus (Culturelle) 1 cap BID PO Last administered on 09/19/18 19:30; Start 09/15/18 at 09:00 Diltiazem HCl (Cardizem 24hr Cd) 120 mg DAILY PO Last administered on 09/19/18 09:29; Start 09/17/18 at 09:00 Clonazepam (KlonoPIN) 0.25 mg 1900 PO Last administered on 09/19/18 19:22; Start 09/16/18 at 20:00 Ceftriaxone Sodium (Rocephin Im) 1 gm DAILY IM ; Start 09/18/18 at 09:00; Stop 09/19/18 at 07:13; Status DC Mirtazapine (Remeron) 7.5 mg QHS PO Last administered on 09/18/18 19:48; Start 09/17/18 at 21:00; Stop 09/19/18 at 16:45; Status DC Trazodone HCl (Desyrel) 50 mg QHS PO Last administered on 09/19/18 19:30; Start 09/17/18 at 21:00 Trazodone HCl (Desyrel) 50 mg PRN QHS PRN PO INSOMNIA Last administered on 09/18/18at 23:03; Start 09/17/18 at 20:30 Lidocaine (Lidoderm) 1 patch DAILY TD ; Start 09/20/18 at 09:00 Miscellaneous (Lidoderm Patch Removal) 1 ea QHS MC Last administered on 09/19/18at 19:32; Start 09/19/18 at 21:00 Mirtazapine (Remeron) 15 mg QHS PO Last administered on 09/19/18at 19:32; Start 09/19/18 at 21:00 Active Scripts Active Reported Cephalexin 500 Mg Capsule 500 Mg PO Q8HRS 7 Days Meloxicam 15 Mg Tablet 15 Mg PO DAILY Mucinex (Guaifenesin) 600 Mg Tablet.er 600 Mg PO BID Furosemide 20 Mg Tablet 20 Mg PO DAILY Flecainide Acetate 50 Mg Tablet 50 Mg PO BIDWMEALS Diltiazem 24Hr ER (Diltiazem HCl) 180 Mg Tab.er.24h 180 Mg PO DAILY Clonazepam 0.5 Mg Tablet 0.25 Mg PO PRN Q8HRS PRN Clonazepam 0.5 Mg Tablet 0.25 Mg PO DAILY19(DAILY @1900) Voltaren (Diclofenac Sodium) 100 Gm Gel..gram. 1 Cindy TP Q6HRS Nystatin 15 Gm Powder 1 Cindy TP BID Spiriva (Tiotropium [place]) 18 Mcg Cap.w.dev 1 Cap IH DAILY Klor-Con M20 (Potassium Chloride) 20 Meq Tab.er.prt 20 Meq PO DAILY Melatonin 3 Mg Tablet 9 Mg PO HS Losartan Potassium 50 Mg Tablet 100 Mg PO DAILY Clopidogrel (Clopidogrel Bisulfate) 75 Mg Tablet 75 Mg PO DAILY Acetaminophen 500 Mg Tablet 500 Mg PO TID I have reviewed the current psychotropics carefully including drug interactions. Risk benefit ratio favors no change other than as noted in my dictated progress note. Diagnosis: Problems: (1) Major neurocognitive disorder (2) Anxiety disorder (3) Dementia, vascular, with depression (4) Depression (5) Dementia in Alzheimer's disease with depression (6) Dementia in Alzheimer's disease with delusions (7) Impulse control disorder BRITT HERRERA MD Sep 19, 2018 22:33
[2018-09-19] MEDS: traZODone 50 MG TABLET. PO PRN (23:03)
[2018-09-20 05:48] VITALS: BP 125/76
[2018-09-20 07:15] LABS: BASO % 1 % (0-3); EOS # 0.2 x10^3/uL (0.0-0.7); EOS % 5 % (0-3); HEMATOCRIT 32.2 % (36.0-47.0); HEMOGLOBIN 10.5 g/dL (12.0-15.5); LYMPH # 0.9 x10^3/uL (1.0-4.8); LYMPH % 22 % (24-48); MEAN CORPUSCULAR HEMOGLOBIN 31 pg (25-35); MEAN CORPUSCULAR HGB CONC 33 g/dL (31-37); MEAN CORPUSCULAR VOLUME 93 fL (79-100); MONO # 0.5 x10^3/uL (0.0-1.1); MONO % 12 % (0-9); NEUT # 2.4 x10^3uL (1.8-7.7); NEUT % 60 % (31-73); PLATELET COUNT 257 x10^3/uL (140-400); RED BLOOD COUNT 3.46 x10^6/uL (3.50-5.40); RED CELL DISTRIBUTION WIDTH 16.8 % (11.5-14.5); WHITE BLOOD COUNT 4.1 x10^3/uL (4.0-11.0)
[2018-09-20 07:48] LABS: ALBUMIN 2.7 g/dL (3.4-5.0); ALBUMIN/GLOBULIN RATIO 0.8 (1.0-1.7); CALCIUM 8.7 mg/dL (8.5-10.1); CREATININE 0.7 mg/dL (0.6-1.0); GFR 80.1; TOTAL BILIRUBIN 0.5 mg/dL (0.2-1.0); TOTAL PROTEIN 6.1 g/dL (6.4-8.2)
[2018-09-20] MEDS: IPRATRPIUM/ALBUTEROL 0.5/2.5MG 3 ML NEBU. NEB SCH ×4 (08:00→20:00)
[2018-09-20] MEDS: BUDESONIDE 0.5 MG/2 ML NEBU NEB SCH ×2 (08:00→20:00)
[2018-09-20] MEDS: NYSTATIN TOPICAL POWDER 15GM BOTTLE. TP SCH ×2 (08:18→19:48)
[2018-09-20] MEDS: POTASSIUM CHLORIDE 20 MEQ TABLET.ER. PO SCH (08:19)
[2018-09-20] MEDS: LOSARTAN 50 MG TABLET. PO SCH (08:20)
[2018-09-20] MEDS: MELOXICAM 15 MG TABLET. PO SCH (08:21)
[2018-09-20] MEDS: FLECAINIDE 50 MG TABLET. PO SCH ×2 (08:21→19:51)
[2018-09-20] MEDS: CLOPIDOGREL BISULFATE 75 MG TABLET PO SCH (08:21)
[2018-09-20] MEDS: FUROSEMIDE 20 MG TABLET PO SCH (08:21)
[2018-09-20] MEDS: LACTOBACILLUS RHAMNOSUS GG 1 CAPSULE. PO SCH ×2 (08:21→19:48)
[2018-09-20] MEDS: ACETAMINOPHEN 500 MG TABLET PO SCH ×4 (08:22→19:49)
[2018-09-20] MEDS: LIDOCAINE (700MG/PATCH) PATCH. TD SCH (08:23)
[2018-09-20 16:35] VITALS: BP 121/82
[2018-09-20] MEDS: MELATONIN 3 MG TABLET PO SCH (19:48)
[2018-09-20] MEDS: clonazePAM 0.5 MG TABLET PO SCH (19:49)
[2018-09-20] MEDS: MIRTAZAPINE 15 MG TABLET PO SCH (19:49)
[2018-09-20] MEDS: PATCH REMOVAL. MC SCH (21:00)
--- NOTE | 2018-09-20 21:23 | PN ---
DATE: 09/19/2018 PSYCHIATRIC PROGRESS NOTE This late entry 09/19/2018 covers elements not covered in my initial note. SUBJECTIVE: I met with the patient in the evening. Previous night, the patient had a very difficult night. She slept 4-1/2 hours, was extremely agitated, labile, received several PRNs, trazodone, Klonopin, Zyprexa x 2. 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 to 4 p.m. complains of back hurting. She repeatedly takes her oxygen off. REVIEW OF SYSTEMS: Shortness of breath, impaired ambulation with walker, wheelchair. No CV, , GI system symptoms on review. MENTAL STATUS EXAM: Oriented to herself. Insight, judgment, recent and remote memory, attention, concentration, fund of knowledge poor, consistent with her diagnosis mentioned in my initial note. PLAN: Increase Remeron from 7.5 to 15 mg at bedtime. Maintain rest of the psychotropics including Risperdal, melatonin, and trazodone. MAN Adilia HERRERA MD DR: MEREDITH/rekha JOB#: [id number] / [id number]
--- NOTE | 2018-09-20 22:33 | PDOC ---
Exam Note: Obdulio Note: Please also refer to the separate dictated note~for this date of service dictated separately.~Patient seen individually. Discussed the patient with Nursing staff reviewed the chart.~Reviewed interim history and current functioning. Reviewed vital signs,~Labs/ Radiology~and current medications noted below. Continue current treatment with the changes noted in the dictated addendum note Assessment: Vital Signs: Vital Signs Date Time Temp Pulse Resp B/P (MAP) Pulse Ox O2 Delivery O2 Flow Rate FiO2 09/20/18 19:51 109 121/82 09/20/18 16:35 97.0 18 95 09/19/18 20:41 Nasal Cannula 2.0 I&O Intake and Output 09/20/18 06:59 Intake Total 360 ml Balance 360 ml Intake Oral 360 ml # Voids 1 Labs: Laboratory Tests Test 09/20/18 07:05 White Blood Count 4.1 x10^3/uL (4.0-11.0) Red Blood Count 3.46 x10^6/uL (3.50-5.40) L Hemoglobin 10.5 g/dL (12.0-15.5) L Hematocrit 32.2 % (36.0-47.0) L Mean Corpuscular Volume 93 fL (79-100) Mean Corpuscular Hemoglobin 31 pg (25-35) Mean Corpuscular Hemoglobin Concent 33 g/dL (31-37) Red Cell Distribution Width 16.8 % (11.5-14.5) H Platelet Count 257 x10^3/uL (140-400) Neutrophils (%) (Auto) 60 % (31-73) Lymphocytes (%) (Auto) 22 % (24-48) L Monocytes (%) (Auto) 12 % (0-9) H Eosinophils (%) (Auto) 5 % (0-3) H Basophils (%) (Auto) 1 % (0-3) Neutrophils # (Auto) 2.4 x10^3uL (1.8-7.7) Lymphocytes # (Auto) 0.9 x10^3/uL (1.0-4.8) L Monocytes # (Auto) 0.5 x10^3/uL (0.0-1.1) Eosinophils # (Auto) 0.2 x10^3/uL (0.0-0.7) Basophils # (Auto) 0.0 x10^3/uL (0.0-0.2) Sodium Level 146 mmol/L (136-145) H Potassium Level 4.0 mmol/L (3.5-5.1) Chloride Level 110 mmol/L (98-107) H Carbon Dioxide Level 30 mmol/L (21-32) Anion Gap 6 (6-14) Blood Urea Nitrogen 15 mg/dL (7-20) Creatinine 0.7 mg/dL (0.6-1.0) Estimated GFR (Cockcroft-Gault) 80.1 BUN/Creatinine Ratio 21 (6-20) H Glucose Level 82 mg/dL (70-99) Calcium Level 8.7 mg/dL (8.5-10.1) Total Bilirubin 0.5 mg/dL (0.2-1.0) Aspartate Amino Transferase (AST) 14 U/L (15-37) L Alanine Aminotransferase (ALT) 17 U/L (14-59) Alkaline Phosphatase 74 U/L (46-116) Total Protein 6.1 g/dL (6.4-8.2) L Albumin 2.7 g/dL (3.4-5.0) L Albumin/Globulin Ratio 0.8 (1.0-1.7) L Current Medications: Meds: Current Medications Acetaminophen (Tylenol) 650 mg PRN Q6HRS PRN PO PAIN / TEMP Last administered on 09/19/18at 09:31; Start 09/14/18 at 04:00 Multi-Ingredient Ointment (Analgesic [place]) 1 cindy PRN QID PRN TP MUSCLE PAIN; Start 09/14/18 at 04:00 Al Hydroxide/Mg Hydroxide (Mylanta Plus Xs) 15 ml PRN AFTMEALHC PRN PO DYSPEPSIA; Start 09/14/18 at 04:00 Magnesium Hydroxide (Milk Of Magnesia) 2,400 mg PRN QHS PRN PO CONSTIPATION Last administered on 09/18/18at 19:14; Start 09/14/18 at 04:00 Vitamin D (Vitamin D3) 2,000 unit DAILY PO ; Start 09/14/18 at 09:00; Stop 09/14/18 at 22:02; Status DC Clopidogrel Bisulfate (Plavix) 75 mg DAILY PO Last administered on 09/20/18at 08:21; Start 09/14/18 at 09:00 Diclofenac Sodium (Voltaren) 1 cindy PRN Q6HRS PRN TP PAIN; Start 09/14/18 at 05:30 Nystatin (Nystop) 1 cindy BID TP Last administered on 09/20/18at 19:48; Start 09/14/18 at 09:00 Potassium Chloride (Klor-Con) 20 meq DAILYWBKFT PO Last administered on 09/20/18at 08:19; Start 09/14/18 at 08:00 Tramadol HCl (Ultram) 25 mg PRN Q4HRS PRN PO PAIN; Start 09/14/18 at 05:30; Stop 09/14/18 at 21:20; Status DC Acetaminophen (Tylenol) 500 mg TID PO Last administered on 09/20/18at 19:49; Start 09/14/18 at 09:00 Carvedilol (Coreg) 3.125 mg BIDWMEALS PO Last administered on 09/14/18at 17:00; Start 09/14/18 at 08:00; Stop 09/14/18 at 18:39; Status DC Clonazepam (KlonoPIN) 1 mg BID PO Last administered on 09/14/18at 10:01; Start 09/14/18 at 09:00; Stop 09/14/18 at 17:35; Status DC Duloxetine HCl (Cymbalta) 30 mg DAILY PO ; Start 09/14/18 at 09:00; Stop 09/14/18 at 22:04; Status DC Losartan Potassium (Cozaar) 100 mg DAILY PO Last administered on 09/20/18at 08:2 0; Start 09/14/18 at 09:00 Melatonin 9 mg HS PO ; Start 09/14/18 at 21:00; Stop 09/14/18 at 21:00; Status DC Multivitamins/ Calcium (Thera-M Plus) 1 tab DAILY PO ; Start 09/14/18 at 09:00; Stop 09/14/18 at 22:02; Status DC Ondansetron HCl (Zofran Odt) 4 mg Q6HRS PO ; Start 09/14/18 at 06:00; Stop 09/14/18 at 06:23; Status DC Pregabalin (Lyrica) 150 mg BID PO Last administered on 09/14/18at 19:50; Start 09/14/18 at 09:00; Stop 09/14/18 at 22:02; Status DC Quetiapine Fumarate (SEROquel) 12.5 mg HS PO Last administered on 09/14/18at 19:51; Start 09/14/18 at 21:00; Stop 09/14/18 at 22:04; Status DC Sennosides (Senna) 8.6 mg PRN DAILY PRN PO CONSTIPATION; Start 09/14/18 at 05:30; Stop 09/14/18 at 18:39; Status DC Non-Formulary Medication (Tiotropium [place] (Spiriva)) 1 cap DAILY IH ; Start 09/14/18 at 09:00; Stop 09/14/18 at 09:00; Status DC Ondansetron HCl (Zofran Odt) 4 mg PRN Q6HRS PRN PO nausea; Start 09/14/18 at 06:30; Stop 09/14/18 at 22:02; Status DC Albuterol/ Ipratropium (Duoneb) 3 ml RTQID NEB Last administered on 09/19/18at 20:38; Start 09/14/18 at 08:00 Clonazepam (KlonoPIN) 1 mg DAILY PO ; Start 09/15/18 at 09:00; Stop 09/15/18 at 09:00; Status DC Clonazepam (KlonoPIN) 0.5 mg BID PO ; Start 09/18/18 at 09:00; Stop 09/18/18 at 09:00; Status DC Clonazepam (KlonoPIN) 0.5 mg QHS PO ; Start 09/14/18 at 21:00; Stop 09/14/18 at 21:00; Status DC Olanzapine (ZyPREXA ZYDIS) 2.5 mg PRN Q2HR PRN PO ANXIETY / AGITATION Last administered on 09/19/18at 23:03; Start 09/14/18 at 17:45 Melatonin 9 mg HS PO Last administered on 09/20/18at 19:48; Start 09/14/18 at 21:00 Albuterol Sulfate (Ventolin) 2.5 mg RTQID NEB ; Start 09/15/18 at 08:00; Stop 09/15/18 at 13:58; Status DC Budesonide (Pulmicort) 0.5 mg RTBID NEB Last administered on 09/19/18 20:38; Start 09/15/18 at 08:00 Albuterol Sulfate (Ventolin) 2.5 mg PRN Q4HRS PRN NEB SHORTNESS OF BREATH; Start 09/14/18 at 21:00 Furosemide (Lasix) 20 mg DAILY PO Last administered on 09/20/18 08:21; Start 09/15/18 at 09:00 Guaifenesin (Mucinex Er) 600 mg BID PO Last administered on 09/20/18 19:49; Start 09/15/18 at 09:00 Diltiazem HCl (Cardizem) 30 mg QID PO Last administered on 09/16/18 13:12; Start 09/15/18 at 09:00; Stop 09/16/18 at 16:23; Status DC Flecainide Acetate (Tambocor) 50 mg Q12HR PO Last administered on 09/20/18 19:51; Start 09/15/18 at 09:00 Meloxicam (Mobic) 15 mg DAILY PO Last administered on 09/20/18 08:21; Start 09/15/18 at 09:00 Clonazepam (KlonoPIN) 0.25 mg 1900 PO Last administered on 09/15/18 18:04; Start 09/15/18 at 19:00; Stop 09/16/18 at 16:57; Status DC Clonazepam (KlonoPIN) 0.25 mg PRN Q8HRS PRN PO ANXIETY / AGITATION Last administered on 09/18/18 23:03; Start 09/14/18 at 22:00 Cephalexin HCl (Keflex) 500 mg Q8HRS PO Last administered on 09/17/18 05:34; Start 09/15/18 at 06:00; Stop 09/17/18 at 12:47; Status DC Lactobacillus Rhamnosus (Culturelle) 1 cap BID PO Last administered on 09/20/18 19:48; Start 09/15/18 at 09:00 Diltiazem HCl (Cardizem 24hr Cd) 120 mg DAILY PO Last administered on 09/20/18 08:20; Start 09/17/18 at 09:00 Clonazepam (KlonoPIN) 0.25 mg 1900 PO Last administered on 6/4/19at 19:22; Start 09/16/18 at 20:00; Stop 09/20/18 at 16:15; Status DC Ceftriaxone Sodium (Rocephin Im) 1 gm DAILY IM ; Start 09/18/18 at 09:00; Stop 09/19/18 at 07:13; Status DC Mirtazapine (Remeron) 7.5 mg QHS PO Last administered on 09/18/18at 19:48; Start 09/17/18 at 21:00; Stop 09/19/18 at 16:45; Status DC Trazodone HCl (Desyrel) 50 mg QHS PO Last administered on 09/19/18at 19:30; Start 09/17/18 at 21:00 Trazodone HCl (Desyrel) 50 mg PRN QHS PRN PO INSOMNIA Last administered on 09/19/18at 23:03; Start 09/17/18 at 20:30 Lidocaine (Lidoderm) 1 patch DAILY TD Last administered on 09/20/18at 08:23; Start 09/20/18 at 09:00 Miscellaneous (Lidoderm Patch Removal) 1 ea QHS MC Last administered on 09/19/18at 19:32; Start 09/19/18 at 21:00 Mirtazapine (Remeron) 15 mg QHS PO Last administered on 09/20/18 19:49; Start 09/19/18 at 21:00 Clonazepam (KlonoPIN) 0.25 mg 2000 PO Last administered on 09/20/18at 19:49; Start 09/20/18 at 20:00 Sertraline HCl (Zoloft) 50 mg DAILY PO ; Start 09/21/18 at 09:00 Active Scripts Active Reported Cephalexin 500 Mg Capsule 500 Mg PO Q8HRS 7 Days Meloxicam 15 Mg Tablet 15 Mg PO DAILY Mucinex (Guaifenesin) 600 Mg Tablet.er 600 Mg PO BID Furosemide 20 Mg Tablet 20 Mg PO DAILY Flecainide Acetate 50 Mg Tablet 50 Mg PO BIDWMEALS Diltiazem 24Hr ER (Diltiazem HCl) 180 Mg Tab.er.24h 180 Mg PO DAILY Clonazepam 0.5 Mg Tablet 0.25 Mg PO PRN Q8HRS PRN Clonazepam 0.5 Mg Tablet 0.25 Mg PO DAILY19(DAILY @1900) Voltaren (Diclofenac Sodium) 100 Gm Gel..gram. 1 Cindy TP Q6HRS Nystatin 15 Gm Powder 1 Cindy TP BID Spiriva (Tiotropium [place]) 18 Mcg Cap.w.dev 1 Cap IH DAILY Klor-Con M20 (Potassium Chloride) 20 Meq Tab.er.prt 20 Meq PO DAILY Melatonin 3 Mg Tablet 9 Mg PO HS Losartan Potassium 50 Mg Tablet 100 Mg PO DAILY Clopidogrel (Clopidogrel Bisulfate) 75 Mg Tablet 75 Mg PO DAILY Acetaminophen 500 Mg Tablet 500 Mg PO TID I have reviewed the current psychotropics carefully including drug interactions. Risk benefit ratio favors no change other than as noted in my dictated progress note. Diagnosis: Problems: (1) Major neurocognitive disorder (2) Anxiety disorder (3) Dementia, vascular, with depression (4) Depression (5) Dementia in Alzheimer's disease with depression (6) Dementia in Alzheimer's disease with delusions (7) Impulse control disorder BRITT HERRERA MD Sep 20, 2018 22:33
[2018-09-20] MEDS: traZODone 50 MG TABLET. PO SCH (23:56)
[2018-09-21] MEDS: ACETAMINOPHEN 325 MG TABLET PO PRN (02:15)
[2018-09-21] MEDS: traZODone 50 MG TABLET. PO SCH ×2 (02:15→20:14)
[2018-09-21 04:46] VITALS: BP 129/81
[2018-09-21] MEDS: IPRATRPIUM/ALBUTEROL 0.5/2.5MG 3 ML NEBU. NEB SCH ×3 (08:00→16:00)
[2018-09-21] MEDS: BUDESONIDE 0.5 MG/2 ML NEBU NEB SCH ×2 (08:00→19:55)
[2018-09-21] MEDS: ACETAMINOPHEN 500 MG TABLET PO SCH ×3 (09:59→20:14)
[2018-09-21] MEDS: LACTOBACILLUS RHAMNOSUS GG 1 CAPSULE. PO SCH ×2 (10:00→20:14)
[2018-09-21] MEDS: LOSARTAN 50 MG TABLET. PO SCH (10:00)
[2018-09-21] MEDS: MELOXICAM 15 MG TABLET. PO SCH (10:01)
[2018-09-21] MEDS: CLOPIDOGREL BISULFATE 75 MG TABLET PO SCH (10:01)
[2018-09-21] MEDS: FUROSEMIDE 20 MG TABLET PO SCH (10:01)
[2018-09-21] MEDS: POTASSIUM CHLORIDE 20 MEQ TABLET.ER. PO SCH (10:02)
[2018-09-21] MEDS: LIDOCAINE (700MG/PATCH) PATCH. TD SCH (10:03)
[2018-09-21] MEDS: NYSTATIN TOPICAL POWDER 15GM BOTTLE. TP SCH (10:04)
[2018-09-21] MEDS: FLECAINIDE 50 MG TABLET. PO SCH ×2 (10:06→20:22)
[2018-09-21] MEDS: SERTRALINE 25 MG TABLET. PO SCH (10:07)
[2018-09-21 15:40] VITALS: BP 90/65
[2018-09-21] MEDS: MIRTAZAPINE 15 MG TABLET PO SCH (20:14)
[2018-09-21] MEDS: MELATONIN 3 MG TABLET PO SCH (20:15)
[2018-09-21] MEDS: clonazePAM 0.5 MG TABLET PO SCH (20:22)
[2018-09-21] MEDS: PATCH REMOVAL. MC SCH (21:00)
--- NOTE | 2018-09-21 22:42 | PDOC ---
Exam Note: Obdulio Note: Please also refer to the separate dictated note~for this date of service dictated separately.~Patient seen individually. Discussed the patient with Nursing staff reviewed the chart.~Reviewed interim history and current functioning. Reviewed vital signs,~Labs/ Radiology~and current medications noted below. Continue current treatment with the changes noted in the dictated addendum note Assessment: Vital Signs: Vital Signs Date Time Temp Pulse Resp B/P (MAP) Pulse Ox O2 Delivery O2 Flow Rate FiO2 09/21/18 20:22 105 134/90 09/21/18 15:40 97.4 16 93 09/21/18 04:46 Nasal Cannula 09/19/18 20:41 2.0 I&O Intake and Output 09/21/18 07:00 Intake Total 920 ml Balance 920 ml Intake Oral 920 ml Current Medications: Meds: Current Medications Acetaminophen (Tylenol) 650 mg PRN Q6HRS PRN PO PAIN / TEMP Last administered on 09/21/18at 02:15; Start 09/14/18 at 04:00 Multi-Ingredient Ointment (Analgesic [place]) 1 cindy PRN QID PRN TP MUSCLE PAIN; Start 09/14/18 at 04:00 Al Hydroxide/Mg Hydroxide (Mylanta Plus Xs) 15 ml PRN AFTMEALHC PRN PO DYSPEPSIA; Start 09/14/18 at 04:00 Magnesium Hydroxide (Milk Of Magnesia) 2,400 mg PRN QHS PRN PO CONSTIPATION Last administered on 09/18/18at 19:14; Start 09/14/18 at 04:00 Vitamin D (Vitamin D3) 2,000 unit DAILY PO ; Start 09/14/18 at 09:00; Stop 09/14/18 at 22:02; Status DC Clopidogrel Bisulfate (Plavix) 75 mg DAILY PO Last administered on 09/21/18at 10:01; Start 09/14/18 at 09:00 Diclofenac Sodium (Voltaren) 1 cindy PRN Q6HRS PRN TP PAIN; Start 09/14/18 at 05:30 Nystatin (Nystop) 1 cindy BID TP Last administered on 09/21/18at 10:04; Start 09/14/18 at 09:00 Potassium Chloride (Klor-Con) 20 meq DAILYWBKFT PO Last administered on 09/21/18at 10:02; Start 09/14/18 at 08:00 Tramadol HCl (Ultram) 25 mg PRN Q4HRS PRN PO PAIN; Start 09/14/18 at 05:30; Stop 09/14/18 at 21:20; Status DC Acetaminophen (Tylenol) 500 mg TID PO Last administered on 09/21/18at 20:14; Start 09/14/18 at 09:00 Carvedilol (Coreg) 3.125 mg BIDWMEALS PO Last administered on 09/14/18at 17:00; Start 09/14/18 at 08:00; Stop 09/14/18 at 18:39; Status DC Clonazepam (KlonoPIN) 1 mg BID PO Last administered on 09/14/18at 10:01; Start 09/14/18 at 09:00; Stop 09/14/18 at 17:35; Status DC Duloxetine HCl (Cymbalta) 30 mg DAILY PO ; Start 09/14/18 at 09:00; Stop 09/14/18 at 22:04; Status DC Losartan Potassium (Cozaar) 100 mg DAILY PO Last administered on 09/21/18at 10:00; Start 09/14/18 at 09:00 Melatonin 9 mg HS PO ; Start 09/14/18 at 21:00; Stop 09/14/18 at 21:00; Status DC Multivitamins/ Calcium (Thera-M Plus) 1 tab DAILY PO ; Start 09/14/18 at 09:00; Stop 09/14/18 at 22:02; Status DC Ondansetron HCl (Zofran Odt) 4 mg Q6HRS PO ; Start 09/14/18 at 06:00; Stop 09/14/18 at 06:23; Status DC Pregabalin (Lyrica) 150 mg BID PO Last administered on 09/14/18at 19:50; Start 09/14/18 at 09:00; Stop 09/14/18 at 22:02; Status DC Quetiapine Fumarate (SEROquel) 12.5 mg HS PO Last administered on 09/14/18at 19:51; Start 09/14/18 at 21:00; Stop 09/14/18 at 22:04; Status DC Sennosides (Senna) 8.6 mg PRN DAILY PRN PO CONSTIPATION; Start 09/14/18 at 05:30; Stop 09/14/18 at 18:39; Status DC Non-Formulary Medication (Tiotropium [place] (Spiriva)) 1 cap DAILY IH ; Start 09/14/18 at 09:00; Stop 09/14/18 at 09:00; Status DC Ondansetron HCl (Zofran Odt) 4 mg PRN Q6HRS PRN PO nausea; Start 09/14/18 at 06:30; Stop 09/14/18 at 22:02; Status DC Albuterol/ Ipratropium (Duoneb) 3 ml RTQID NEB Last administered on 09/19/18at 20:38; Start 09/14/18 at 08:00 Clonazepam (KlonoPIN) 1 mg DAILY PO ; Start 09/15/18 at 09:00; Stop 09/15/18 at 09:00; Status DC Clonazepam (KlonoPIN) 0.5 mg BID PO ; Start 09/18/18 at 09:00; Stop 09/18/18 at 09:00; Status DC Clonazepam (KlonoPIN) 0.5 mg QHS PO ; Start 09/14/18 at 21:00; Stop 09/14/18 at 21:00; Status DC Olanzapine (ZyPREXA ZYDIS) 2.5 mg PRN Q2HR PRN PO ANXIETY / AGITATION Last administered on 09/19/18at 23:03; Start 09/14/18 at 17:45 Melatonin 9 mg HS PO Last administered on 09/21/18at 20:15; Start 09/14/18 at 21:00 Albuterol Sulfate (Ventolin) 2.5 mg RTQID NEB ; Start 09/15/18 at 08:00; Stop 09/15/18 at 13:58; Status DC Budesonide (Pulmicort) 0.5 mg RTBID NEB Last administered on 09/19/18at 20:38; Start 09/15/18 at 08:00 Albuterol Sulfate (Ventolin) 2.5 mg PRN Q4HRS PRN NEB SHORTNESS OF BREATH; Start 09/14/18 at 21:00 Furosemide (Lasix) 20 mg DAILY PO Last administered on 09/21/18at 10:01; Start 09/15/18 at 09:00 Guaifenesin (Mucinex Er) 600 mg BID PO Last administered on 09/21/18 20:14; Start 09/15/18 at 09:00 Diltiazem HCl (Cardizem) 30 mg QID PO Last administered on 09/16/18 13:12; Start 09/15/18 at 09:00; Stop 09/16/18 at 16:23; Status DC Flecainide Acetate (Tambocor) 50 mg Q12HR PO Last administered on 09/21/18 20:22; Start 09/15/18 at 09:00 Meloxicam (Mobic) 15 mg DAILY PO Last administered on 09/21/18 10:01; Start 09/15/18 at 09:00 Clonazepam (KlonoPIN) 0.25 mg 1900 PO Last administered on 09/15/18 18:04; Start 09/15/18 at 19:00; Stop 09/16/18 at 16:57; Status DC Clonazepam (KlonoPIN) 0.25 mg PRN Q8HRS PRN PO ANXIETY / AGITATION Last administered on 09/18/18 23:03; Start 09/14/18 at 22:00 Cephalexin HCl (Keflex) 500 mg Q8HRS PO Last administered on 09/17/18 05:34; Start 09/15/18 at 06:00; Stop 09/17/18 at 12:47; Status DC Lactobacillus Rhamnosus (Culturelle) 1 cap BID PO Last administered on 09/21/18 20:14; Start 09/15/18 at 09:00 Diltiazem HCl (Cardizem 24hr Cd) 120 mg DAILY PO Last administered on 09/21/18 10:01; Start 09/17/18 at 09:00 Clonazepam (KlonoPIN) 0.25 mg 1900 PO Last administered on 09/19/18 19:22; Start 09/16/18 at 20:00; Stop 09/20/18 at 16:15; Status DC Ceftriaxone Sodium (Rocephin Im) 1 gm DAILY IM ; Start 09/18/18 at 09:00; Stop 09/19/18 at 07:13; Status DC Mirtazapine (Remeron) 7.5 mg QHS PO Last administered on 09/18/18 19:48; Start 09/17/18 at 21:00; Stop 09/19/18 at 16:45; Status DC Trazodone HCl (Desyrel) 50 mg QHS PO Last administered on 09/21/18 20:14; S tart 09/17/18 at 21:00 Trazodone HCl (Desyrel) 50 mg PRN QHS PRN PO INSOMNIA Last administered on 09/19/18 23:03; Start 09/17/18 at 20:30 Lidocaine (Lidoderm) 1 patch DAILY TD Last administered on 09/21/18 10:03; Start 09/20/18 at 09:00 Miscellaneous (Lidoderm Patch Removal) 1 ea QHS MC Last administered on 09/20/18 21:00; Start 09/19/18 at 21:00 Mirtazapine (Remeron) 15 mg QHS PO Last administered on 09/21/18 20:14; Start 09/19/18 at 21:00 Clonazepam (KlonoPIN) 0.25 mg 2000 PO Last administered on 09/21/18 20:22; Start 09/20/18 at 20:00 Sertraline HCl (Zoloft) 50 mg DAILY PO Last administered on 09/21/18 10:07; Start 09/21/18 at 09:00 Active Scripts Active Reported Cephalexin 500 Mg Capsule 500 Mg PO Q8HRS 7 Days Meloxicam 15 Mg Tablet 15 Mg PO DAILY Mucinex (Guaifenesin) 600 Mg Tablet.er 600 Mg PO BID Furosemide 20 Mg Tablet 20 Mg PO DAILY Flecainide Acetate 50 Mg Tablet 50 Mg PO BIDWMEALS Diltiazem 24Hr ER (Diltiazem HCl) 180 Mg Tab.er.24h 180 Mg PO DAILY Clonazepam 0.5 Mg Tablet 0.25 Mg PO PRN Q8HRS PRN Clonazepam 0.5 Mg Tablet 0.25 Mg PO DAILY19(DAILY @1900) Voltaren (Diclofenac Sodium) 100 Gm Gel..gram. 1 Cindy TP Q6HRS Nystatin 15 Gm Powder 1 Cindy TP BID Spiriva (Tiotropium [place]) 18 Mcg Cap.w.dev 1 Cap IH DAILY Klor-Con M20 (Potassium Chloride) 20 Meq Tab.er.prt 20 Meq PO DAILY Melatonin 3 Mg Tablet 9 Mg PO HS Losartan Potassium 50 Mg Tablet 100 Mg PO DAILY Clopidogrel (Clopidogrel Bisulfate) 75 Mg Tablet 75 Mg PO DAILY Acetaminophen 500 Mg Tablet 500 Mg PO TID I have reviewed the current psychotropics carefully including drug interactions. Risk benefit ratio favors no change other than as noted in my dictated progress note. Diagnosis: Problems: (1) Major neurocognitive disorder (2) Anxiety disorder (3) Dementia, vascular, with depression (4) Depression (5) Dementia in Alzheimer's disease with depression (6) Dementia in Alzheimer's disease with delusions (7) Impulse control disorder BRITT HERRERA MD Sep 21, 2018 22:42
[2018-09-22] MEDS: NYSTATIN TOPICAL POWDER 15GM BOTTLE. TP SCH ×2 (00:15→10:04)
[2018-09-22] MEDS: ACETAMINOPHEN 500 MG TABLET PO SCH ×3 (05:37→19:55)
[2018-09-22 06:17] VITALS: BP 141/94
[2018-09-22] MEDS: POTASSIUM CHLORIDE 20 MEQ TABLET.ER. PO SCH (10:00)
[2018-09-22] MEDS: MELOXICAM 15 MG TABLET. PO SCH (10:02)
[2018-09-22] MEDS: LOSARTAN 50 MG TABLET. PO SCH (10:02)
[2018-09-22] MEDS: SERTRALINE 25 MG TABLET. PO SCH (10:02)
[2018-09-22] MEDS: FUROSEMIDE 20 MG TABLET PO SCH (10:02)
[2018-09-22] MEDS: LIDOCAINE (700MG/PATCH) PATCH. TD SCH (10:03)
[2018-09-22] MEDS: LACTOBACILLUS RHAMNOSUS GG 1 CAPSULE. PO SCH ×2 (10:03→19:53)
[2018-09-22] MEDS: CLOPIDOGREL BISULFATE 75 MG TABLET PO SCH (10:03)
[2018-09-22] MEDS: FLECAINIDE 50 MG TABLET. PO SCH ×2 (10:04→19:57)
[2018-09-22] MEDS: BUDESONIDE 0.5 MG/2 ML NEBU NEB SCH ×2 (10:57→21:34)
[2018-09-22] MEDS: IPRATRPIUM/ALBUTEROL 0.5/2.5MG 3 ML NEBU. NEB SCH ×4 (10:57→21:34)
--- NOTE | 2018-09-22 15:49 | PN ---
DATE: 09/20/2018 PSYCHIATRIC PROGRESS NOTE This late entry 09/20/2018 covers elements not covered in my initial note. SUBJECTIVE: I met with the patient in the evening. The patient slept 5 hours previous night. She was up at 2300, was extremely agitated, disruptive. Staff contacted me. She was hitting, biting, scratching, kicking. During the day, she has done better, though mood was somewhat labile with physical therapy staff. REVIEW OF SYSTEMS: No CV, , pulmonary, eye, ENT system symptoms on review. Reliability poor. Ambulation impaired with walker. MENTAL STATUS EXAM: Oriented to herself. Insight, judgment, recent and remote memory, attention, concentration, fund of knowledge poor, consistent with her diagnosis mentioned in my initial note. PLAN: Start Zoloft 50 mg a day for mood, anxiety, obsessive symptoms. Maintain rest of the psychotropics unchanged. MAN Adilia HERRERA MD DR: [email or web address]/rekha JOB#: [id number] / [id number]
[2018-09-22 16:10] VITALS: BP 119/77
[2018-09-22] MEDS: MIRTAZAPINE 15 MG TABLET PO SCH (19:53)
[2018-09-22] MEDS: traZODone 50 MG TABLET. PO SCH (19:53)
[2018-09-22] MEDS: MELATONIN 3 MG TABLET PO SCH (19:55)
[2018-09-22] MEDS: clonazePAM 0.5 MG TABLET PO SCH (19:56)
[2018-09-22] MEDS: PATCH REMOVAL. MC SCH (21:00)
--- NOTE | 2018-09-22 22:25 | PDOC ---
Exam Note: Obdulio Note: Please also refer to the separate dictated note~for this date of service dictated separately.~Patient seen individually. Discussed the patient with Nursing staff reviewed the chart.~Reviewed interim history and current functioning. Reviewed vital signs,~Labs/ Radiology~and current medications noted below. Continue current treatment with the changes noted in the dictated addendum note Assessment: Vital Signs: Vital Signs Date Time Temp Pulse Resp B/P (MAP) Pulse Ox O2 Delivery O2 Flow Rate FiO2 09/22/18 21:39 95 Nasal Cannula 2.0 09/22/18 19:57 103 160/89 09/22/18 16:10 97.6 20 I&O Intake and Output 09/22/18 07:00 Intake Total 720 ml Balance 720 ml Intake Oral 720 ml Current Medications: Meds: Current Medications Acetaminophen (Tylenol) 650 mg PRN Q6HRS PRN PO PAIN / TEMP Last administered on 09/21/18 02:15; Start 09/14/18 at 04:00 Multi-Ingredient Ointment (Analgesic [place]) 1 cindy PRN QID PRN TP MUSCLE PAIN; Start 09/14/18 at 04:00 Al Hydroxide/Mg Hydroxide (Mylanta Plus Xs) 15 ml PRN AFTMEALHC PRN PO DYSPEPSIA; Start 09/14/18 at 04:00 Magnesium Hydroxide (Milk Of Magnesia) 2,400 mg PRN QHS PRN PO CONSTIPATION Last administered on 09/18/18at 19:14; Start 09/14/18 at 04:00 Vitamin D (Vitamin D3) 2,000 unit DAILY PO ; Start 09/14/18 at 09:00; Stop 09/14/18 at 22:02; Status DC Clopidogrel Bisulfate (Plavix) 75 mg DAILY PO Last administered on 09/22/18 10:03; Start 09/14/18 at 09:00 Diclofenac Sodium (Voltaren) 1 cindy PRN Q6HRS PRN TP PAIN; Start 09/14/18 at 05:30 Nystatin (Nystop) 1 cindy BID TP Last administered on 09/22/18at 10:04; Start 09/14/18 at 09:00 Potassium Chloride (Klor-Con) 20 meq DAILYWBKFT PO Last administered on 09/22/18at 10:00; Start 09/14/18 at 08:00 Tramadol HCl (Ultram) 25 mg PRN Q4HRS PRN PO PAIN; Start 09/14/18 at 05:30; Stop 09/14/18 at 21:20; Status DC Acetaminophen (Tylenol) 500 mg TID PO Last administered on 09/22/18at 19:55; Start 09/14/18 at 09:00 Carvedilol (Coreg) 3.125 mg BIDWMEALS PO Last administered on 09/14/18at 17:00; Start 09/14/18 at 08:00; Stop 09/14/18 at 18:39; Status DC Clonazepam (KlonoPIN) 1 mg BID PO Last administered on 09/14/18at 10:01; Start 09/14/18 at 09:00; Stop 09/14/18 at 17:35; Status DC Duloxetine HCl (Cymbalta) 30 mg DAILY PO ; Start 09/14/18 at 09:00; Stop 09/14/18 at 22:04; Status DC Losartan Potassium (Cozaar) 100 mg DAILY PO Last administered on 09/22/18at 10:02; Start 09/14/18 at 09:00 Melatonin 9 mg HS PO ; Start 09/14/18 at 21:00; Stop 09/14/18 at 21:00; Status DC Multivitamins/ Calcium (Thera-M Plus) 1 tab DAILY PO ; Start 09/14/18 at 09:00; Stop 09/14/18 at 22:02; Status DC Ondansetron HCl (Zofran Odt) 4 mg Q6HRS PO ; Start 09/14/18 at 06:00; Stop 09/14/18 at 06:23; Status DC Pregabalin (Lyrica) 150 mg BID PO Last administered on 09/14/18at 19:50; Start 09/14/18 at 09:00; Stop 09/14/18 at 22:02; Status DC Quetiapine Fumarate (SEROquel) 12.5 mg HS PO Last administered on 09/14/18at 19:51; Start 09/14/18 at 21:00; Stop 09/14/18 at 22:04; Status DC Sennosides (Senna) 8.6 mg PRN DAILY PRN PO CONSTIPATION; Start 09/14/18 at 05:30; Stop 09/14/18 at 18:39; Status DC Non-Formulary Medication (Tiotropium [place] (Spiriva)) 1 cap DAILY IH ; Start 09/14/18 at 09:00; Stop 09/14/18 at 09:00; Status DC Ondansetron HCl (Zofran Odt) 4 mg PRN Q6HRS PRN PO nausea; Start 09/14/18 at 06:30; Stop 09/14/18 at 22:02; Status DC Albuterol/ Ipratropium (Duoneb) 3 ml RTQID NEB Last administered on 09/22/18 21:34; Start 09/14/18 at 08:00 Clonazepam (KlonoPIN) 1 mg DAILY PO ; Start 09/15/18 at 09:00; Stop 09/15/18 at 09:00; Status DC Clonazepam (KlonoPIN) 0.5 mg BID PO ; Start 09/18/18 at 09:00; Stop 09/18/18 at 09:00; Status DC Clonazepam (KlonoPIN) 0.5 mg QHS PO ; Start 09/14/18 at 21:00; Stop 09/14/18 at 21:00; Status DC Olanzapine (ZyPREXA ZYDIS) 2.5 mg PRN Q2HR PRN PO ANXIETY / AGITATION Last administered on 09/22/18 02:43; Start 09/14/18 at 17:45 Melatonin 9 mg HS PO Last administered on 09/22/18 19:55; Start 09/14/18 at 21:00 Albuterol Sulfate (Ventolin) 2.5 mg RTQID NEB ; Start 09/15/18 at 08:00; Stop 09/15/18 at 13:58; Status DC Budesonide (Pulmicort) 0.5 mg RTBID NEB Last administered on 09/22/18 21:34; Start 09/15/18 at 08:00 Albuterol Sulfate (Ventolin) 2.5 mg PRN Q4HRS PRN NEB SHORTNESS OF BREATH; Start 09/14/18 at 21:00 Furosemide (Lasix) 20 mg DAILY PO Last administered on 09/22/18at 10:02; Start 09/15/18 at 09:00 Guaifenesin (Mucinex Er) 600 mg BID PO Last administered on 09/22/18 19:53; Start 09/15/18 at 09:00 Diltiazem HCl (Cardizem) 30 mg QID PO Last administered on 09/16/18 13:12; Start 09/15/18 at 09:00; Stop 09/16/18 at 16:23; Status DC Flecainide Acetate (Tambocor) 50 mg Q12HR PO Last administered on 09/22/18 19:57; Start 09/15/18 at 09:00 Meloxicam (Mobic) 15 mg DAILY PO Last administered on 09/22/18 10:02; Start 09/15/18 at 09:00 Clonazepam (KlonoPIN) 0.25 mg 1900 PO Last administered on 09/15/18 18:04; Start 09/15/18 at 19:00; Stop 09/16/18 at 16:57; Status DC Clonazepam (KlonoPIN) 0.25 mg PRN Q8HRS PRN PO ANXIETY / AGITATION Last administered on 09/18/18 23:03; Start 09/14/18 at 22:00 Cephalexin HCl (Keflex) 500 mg Q8HRS PO Last administered on 09/17/18 05:34; Start 09/15/18 at 06:00; Stop 09/17/18 at 12:47; Status DC Lactobacillus Rhamnosus (Culturelle) 1 cap BID PO Last administered on 09/22/18 19:53; Start 09/15/18 at 09:00 Diltiazem HCl (Cardizem 24hr Cd) 120 mg DAILY PO Last administered on 09/22/18 10:02; Start 09/17/18 at 09:00 Clonazepam (KlonoPIN) 0.25 mg 1900 PO Last administered on 09/19/18 19:22; Start 09/16/18 at 20:00; Stop 09/20/18 at 16:15; Status DC Ceftriaxone Sodium (Rocephin Im) 1 gm DAILY IM ; Start 09/18/18 at 09:00; Stop 09/19/18 at 07:13; Status DC Mirtazapine (Remeron) 7.5 mg QHS PO Last administered on 09/18/18 19:48; Start 09/17/18 at 21:00; Stop 09/19/18 at 16:45; Status DC Trazodone HCl (Desyrel) 50 mg QHS PO Last administered on 09/22/18 19:53; Start 09/17/18 at 21:00 Trazodone HCl (Desyrel) 50 mg PRN QHS PRN PO INSOMNIA Last administered on 09/19/18 23:03; Start 09/17/18 at 20:30 Lidocaine (Lidoderm) 1 patch DAILY TD Last administered on 09/22/18 10:03; Start 09/20/18 at 09:00 Miscellaneous (Lidoderm Patch Removal) 1 ea QHS MC Last administered on 09/21/18 21:00; Start 09/19/18 at 21:00 Mirtazapine (Remeron) 15 mg QHS PO Last administered on 09/22/18 19:53; Start 09/19/18 at 21:00 Clonazepam (KlonoPIN) 0.25 mg 2000 PO Last administered on 09/22/18 19:56; Start 09/20/18 at 20:00 Sertraline HCl (Zoloft) 50 mg DAILY PO Last administered on 09/22/18 10:02; Start 09/21/18 at 09:00; Stop 09/23/18 at 11:00 Sertraline HCl (Zoloft) 75 mg DAILY PO ; Start 09/24/18 at 09:00 Active Scripts Active Reported Cephalexin 500 Mg Capsule 500 Mg PO Q8HRS 7 Days Meloxicam 15 Mg Tablet 15 Mg PO DAILY Mucinex (Guaifenesin) 600 Mg Tablet.er 600 Mg PO BID Furosemide 20 Mg Tablet 20 Mg PO DAILY Flecainide Acetate 50 Mg Tablet 50 Mg PO BIDWMEALS Diltiazem 24Hr ER (Diltiazem HCl) 180 Mg Tab.er.24h 180 Mg PO DAILY Clonazepam 0.5 Mg Tablet 0.25 Mg PO PRN Q8HRS PRN Clonazepam 0.5 Mg Tablet 0.25 Mg PO DAILY19(DAILY @1900) Voltaren (Diclofenac Sodium) 100 Gm Gel..gram. 1 Cindy TP Q6HRS Nystatin 15 Gm Powder 1 Cindy TP BID Spiriva (Tiotropium [place]) 18 Mcg Cap.w.dev 1 Cap IH DAILY Klor-Con M20 (Potassium Chloride) 20 Meq Tab.er.prt 20 Meq PO DAILY Melatonin 3 Mg Tablet 9 Mg PO HS Losartan Potassium 50 Mg Tablet 100 Mg PO DAILY Clopidogrel (Clopidogrel Bisulfate) 75 Mg Tablet 75 Mg PO DAILY Acetaminophen 500 Mg Tablet 500 Mg PO TID I have reviewed the current psychotropics carefully including drug interactions. Risk benefit ratio favors no change other than as noted in my dictated progress note. Diagnosis: Problems: (1) Major neurocognitive disorder (2) Anxiety disorder (3) Dementia, vascular, with depression (4) Depression (5) Dementia in Alzheimer's disease with depression (6) Dementia in Alzheimer's disease with delusions (7) Impulse control disorder BRITT HERRERA MD Sep 22, 2018 22:25
[2018-09-23] MEDS: NYSTATIN TOPICAL POWDER 15GM BOTTLE. TP SCH ×3 (00:35→20:51)
[2018-09-23] MEDS: IPRATRPIUM/ALBUTEROL 0.5/2.5MG 3 ML NEBU. NEB SCH ×5 (05:15→21:26)
[2018-09-23] MEDS: BUDESONIDE 0.5 MG/2 ML NEBU NEB SCH ×2 (05:15→21:26)
[2018-09-23 06:44] VITALS: BP 115/76
[2018-09-23] MEDS: SERTRALINE 25 MG TABLET. PO SCH (08:00)
[2018-09-23] MEDS: LOSARTAN 50 MG TABLET. PO SCH (08:01)
[2018-09-23] MEDS: CLOPIDOGREL BISULFATE 75 MG TABLET PO SCH (08:01)
[2018-09-23] MEDS: MELOXICAM 15 MG TABLET. PO SCH (08:02)
[2018-09-23] MEDS: FUROSEMIDE 20 MG TABLET PO SCH (08:02)
[2018-09-23] MEDS: LACTOBACILLUS RHAMNOSUS GG 1 CAPSULE. PO SCH ×2 (08:03→20:49)
[2018-09-23] MEDS: POTASSIUM CHLORIDE 20 MEQ TABLET.ER. PO SCH (08:03)
[2018-09-23] MEDS: ACETAMINOPHEN 500 MG TABLET PO SCH ×3 (08:03→20:48)
[2018-09-23] MEDS: FLECAINIDE 50 MG TABLET. PO SCH ×2 (08:04→20:50)
[2018-09-23 08:31] LABS: BASO % 1 % (0-3); EOS # 0.1 x10^3/uL (0.0-0.7); EOS % 3 % (0-3); HEMATOCRIT 33.5 % (36.0-47.0); HEMOGLOBIN 11.1 g/dL (12.0-15.5); LYMPH # 1.1 x10^3/uL (1.0-4.8); LYMPH % 22 % (24-48); MEAN CORPUSCULAR HEMOGLOBIN 31 pg (25-35); MEAN CORPUSCULAR HGB CONC 33 g/dL (31-37); MEAN CORPUSCULAR VOLUME 94 fL (79-100); MONO # 0.5 x10^3/uL (0.0-1.1); MONO % 10 % (0-9); NEUT # 3.2 x10^3uL (1.8-7.7); NEUT % 65 % (31-73); PLATELET COUNT 281 x10^3/uL (140-400); RED BLOOD COUNT 3.57 x10^6/uL (3.50-5.40); RED CELL DISTRIBUTION WIDTH 17.4 % (11.5-14.5)
[2018-09-23 08:43] LABS: ALBUMIN 3.2 g/dL (3.4-5.0); ALBUMIN/GLOBULIN RATIO 0.8 (1.0-1.7); CALCIUM 9.4 mg/dL (8.5-10.1); CREATININE 0.8 mg/dL (0.6-1.0); GFR 68.7; POTASSIUM 4.4 mmol/L (3.5-5.1); TOTAL BILIRUBIN 0.3 mg/dL (0.2-1.0)
[2018-09-23] MEDS: LIDOCAINE (700MG/PATCH) PATCH. TD SCH (09:00)
[2018-09-23] MEDS: clonazePAM 0.5 MG TABLET PO PRN (12:34)
[2018-09-23] MEDS: MAGNESIUM HYDROXIDE 2,400 MG/30 ML ORAL.SUSP. PO PRN (14:32)
--- NOTE | 2018-09-23 15:02 | PN ---
DATE: 09/21/2018 PSYCHIATRIC PROGRESS NOTE This late entry of 09/21/2018 covers elements not covered in my initial note. SUBJECTIVE: I met with the patient in the evening and staffed at a treatment team meeting with the entire team in the morning and the patient's daughter, Vaishali, attended the conference. The patient has been pleasant, cooperative, compliant with medication, but combative with cares. Slept 4 hours. Appetite is 50%, gets combative with changes of her briefs. Alternate placement at [facility] assisted living is being looked per report from social service staff. We discussed all this at the treatment team meeting. REVIEW OF SYSTEMS: Ambulation impaired with walker. No CV, , pulmonary, eye, ENT system symptoms on review. Reliability poor. MENTAL STATUS EXAM: Oriented to herself. Insight, judgment, recent and remote memory, attention, concentration, fund of knowledge poor, consistent with her diagnoses mentioned in my initial note. PLAN: No change from initial note. BRITT HERRERA MD DR: MEREDITH/rekha JOB#: [id number] / [id number]
[2018-09-23 16:07] VITALS: BP 119/86
--- NOTE | 2018-09-23 16:28 | PN ---
DATE: 09/22/2018 PSYCHIATRIC PROGRESS NOTE This late entry of 09/22/2018 covers elements not covered in my initial note. SUBJECTIVE: I met with the patient in the evening. The patient slept 7-1/2 to 7-1/4 hours previous night. At night, she refused breathing treatment, removed her oxygen tubing, refused to leave the day room and dining room, resistive to showers. She again refused breathing treatment on 09/22/2018. I addressed all this with her; she minimized this. Memory deficits are evident. REVIEW OF SYSTEMS: No CV, , pulmonary, eye, ENT system symptoms on review. Reliability varies. MENTAL STATUS EXAM: Oriented to herself. Insight, judgment, recent and remote memory, attention, concentration, fund of knowledge poor consistent with her diagnosis mentioned in my initial note. PLAN: Increase Zoloft from 50 mg a day to 75 mg a day after she has been on 50 for 3 days. Continue rest unchanged. BRITT HERRERA MD DR: MEREDITH/rekha JOB#: [id number] / [id number]
--- NOTE | 2018-09-23 20:42 | PDOC ---
Exam Note: Obdulio Note: Please also refer to the separate dictated note~for this date of service dictated separately.~Patient seen individually. Discussed the patient with Nursing staff reviewed the chart.~Reviewed interim history and current functioning. Reviewed vital signs,~Labs/ Radiology~and current medications noted below. Continue current treatment with the changes noted in the dictated addendum note Assessment: Vital Signs: Vital Signs Date Time Temp Pulse Resp B/P (MAP) Pulse Ox O2 Delivery O2 Flow Rate FiO2 09/23/18 16:07 97.4 101 22 119/86 (97) 94 Room Air 09/22/18 21:39 2.0 I&O Intake and Output 09/23/18 07:00 Intake Total 1078 ml Balance 1078 ml Intake Oral 1078 ml Labs: Laboratory Tests Test 09/23/18 07:55 White Blood Count 5.0 x10^3/uL (4.0-11.0) Red Blood Count 3.57 x10^6/uL (3.50-5.40) Hemoglobin 11.1 g/dL (12.0-15.5) L Hematocrit 33.5 % (36.0-47.0) L Mean Corpuscular Volume 94 fL (79-100) Mean Corpuscular Hemoglobin 31 pg (25-35) Mean Corpuscular Hemoglobin Concent 33 g/dL (31-37) Red Cell Distribution Width 17.4 % (11.5-14.5) H Platelet Count 281 x10^3/uL (140-400) Neutrophils (%) (Auto) 65 % (31-73) Lymphocytes (%) (Auto) 22 % (24-48) L Monocytes (%) (Auto) 10 % (0-9) H Eosinophils (%) (Auto) 3 % (0-3) Basophils (%) (Auto) 1 % (0-3) Neutrophils # (Auto) 3.2 x10^3uL (1.8-7.7) Lymphocytes # (Auto) 1.1 x10^3/uL (1.0-4.8) Monocytes # (Auto) 0.5 x10^3/uL (0.0-1.1) Eosinophils # (Auto) 0.1 x10^3/uL (0.0-0.7) Basophils # (Auto) 0.0 x10^3/uL (0.0-0.2) Sodium Level 148 mmol/L (136-145) H Potassium Level 4.4 mmol/L (3.5-5.1) Chloride Level 111 mmol/L (98-107) H Carbon Dioxide Level 29 mmol/L (21-32) Anion Gap 8 (6-14) Blood Urea Nitrogen 16 mg/dL (7-20) Creatinine 0.8 mg/dL (0.6-1.0) Estimated GFR (Cockcroft-Gault) 68.7 BUN/Creatinine Ratio 20 (6-20) Glucose Level 96 mg/dL (70-99) Calcium Level 9.4 mg/dL (8.5-10.1) Total Bilirubin 0.3 mg/dL (0.2-1.0) Aspartate Amino Transferase (AST) 15 U/L (15-37) Alanine Aminotransferase (ALT) 17 U/L (14-59) Alkaline Phosphatase 81 U/L (46-116) Total Protein 7.0 g/dL (6.4-8.2) Albumin 3.2 g/dL (3.4-5.0) L Albumin/Globulin Ratio 0.8 (1.0-1.7) L Current Medications: Meds: Current Medications Acetaminophen (Tylenol) 650 mg PRN Q6HRS PRN PO PAIN / TEMP Last administered on 09/21/18at 02:15; Start 09/14/18 at 04:00 Multi-Ingredient Ointment (Analgesic [place]) 1 cindy PRN QID PRN TP MUSCLE PAIN; Start 09/14/18 at 04:00 Al Hydroxide/Mg Hydroxide (Mylanta Plus Xs) 15 ml PRN AFTMEALHC PRN PO DYSPEPSIA; Start 09/14/18 at 04:00 Magnesium Hydroxide (Milk Of Magnesia) 2,400 mg PRN QHS PRN PO CONSTIPATION Last administered on 09/23/18at 14:32; Start 09/14/18 at 04:00 Vitamin D (Vitamin D3) 2,000 unit DAILY PO ; Start 09/14/18 at 09:00; Stop 09/14/18 at 22:02; Status DC Clopidogrel Bisulfate (Plavix) 75 mg DAILY PO Last administered on 09/23/18at 08:01; Start 09/14/18 at 09:00 Diclofenac Sodium (Voltaren) 1 cindy PRN Q6HRS PRN TP PAIN; Start 09/14/18 at 05:30 Nystatin (Nystop) 1 cindy BID TP Last administered on 09/23/18at 00:35; Start 09/14/18 at 09:00 Potassium Chloride (Klor-Con) 20 meq DAILYWBKFT PO Last administered on 09/23/18at 08:03; Start 09/14/18 at 08:00 Tramadol HCl (Ultram) 25 mg PRN Q4HRS PRN PO PAIN; Start 09/14/18 at 05:30; Stop 09/14/18 at 21:20; Status DC Acetaminophen (Tylenol) 500 mg TID PO Last administered on 09/23/18at 14:32; Start 09/14/18 at 09:00 Carvedilol (Coreg) 3.125 mg BIDWMEALS PO Last administered on 09/14/18at 17:00; Start 09/14/18 at 08:00; Stop 09/14/18 at 18:39; Status DC Clonazepam (KlonoPIN) 1 mg BID PO Last administered on 09/14/18at 10:01; Start 09/14/18 at 09:00; Stop 09/14/18 at 17:35; Status DC Duloxetine HCl (Cymbalta) 30 mg DAILY PO ; Start 09/14/18 at 09:00; Stop 09/14/18 at 22:04; Status DC Losartan Potassium (Cozaar) 100 mg DAILY PO Last administered on 09/23/18at 08:01; Start 09/14/18 at 09:00 Melatonin 9 mg HS PO ; Start 09/14/18 at 21:00; Stop 09/14/18 at 21:00; Status DC Multivitamins/ Calcium (Thera-M Plus) 1 tab DAILY PO ; Start 09/14/18 at 09:00; Stop 09/14/18 at 22:02; Status DC Ondansetron HCl (Zofran Odt) 4 mg Q6HRS PO ; Start 09/14/18 at 06:00; Stop 09/14/18 at 06:23; Status DC Pregabalin (Lyrica) 150 mg BID PO Last administered on 09/14/18at 19:50; Start 09/14/18 at 09:00; Stop 09/14/18 at 22:02; Status DC Quetiapine Fumarate (SEROquel) 12.5 mg HS PO Last administered on 09/14/18at 19:51; Start 09/14/18 at 21:00; Stop 09/14/18 at 22:04; Status DC Sennosides (Senna) 8.6 mg PRN DAILY PRN PO CONSTIPATION; Start 09/14/18 at 0 5:30; Stop 09/14/18 at 18:39; Status DC Non-Formulary Medication (Tiotropium [place] (Spiriva)) 1 cap DAILY IH ; Start 09/14/18 at 09:00; Stop 09/14/18 at 09:00; Status DC Ondansetron HCl (Zofran Odt) 4 mg PRN Q6HRS PRN PO nausea; Start 09/14/18 at 06:30; Stop 09/14/18 at 22:02; Status DC Albuterol/ Ipratropium (Duoneb) 3 ml RTQID NEB Last administered on 09/23/18at 16:01; Start 09/14/18 at 08:00 Clonazepam (KlonoPIN) 1 mg DAILY PO ; Start 09/15/18 at 09:00; Stop 09/15/18 at 09:00; Status DC Clonazepam (KlonoPIN) 0.5 mg BID PO ; Start 09/18/18 at 09:00; Stop 09/18/18 at 09:00; Status DC Clonazepam (KlonoPIN) 0.5 mg QHS PO ; Start 09/14/18 at 21:00; Stop 09/14/18 at 21:00; Status DC Olanzapine (ZyPREXA ZYDIS) 2.5 mg PRN Q2HR PRN PO ANXIETY / AGITATION Last administered on 09/22/18at 02:43; Start 09/14/18 at 17:45 Melatonin 9 mg HS PO Last administered on 09/22/18at 19:55; Start 09/14/18 at 21:00 Albuterol Sulfate (Ventolin) 2.5 mg RTQID NEB ; Start 09/15/18 at 08:00; Stop 09/15/18 at 13:58; Status DC Budesonide (Pulmicort) 0.5 mg RTBID NEB Last administered on 09/23/18at 05:15; Start 09/15/18 at 08:00 Albuterol Sulfate (Ventolin) 2.5 mg PRN Q4HRS PRN NEB SHORTNESS OF BREATH; Start 09/14/18 at 21:00 Furosemide (Lasix) 20 mg DAILY PO Last administered on 09/23/18 08:02; Start 09/15/18 at 09:00 Guaifenesin (Mucinex Er) 600 mg BID PO Last administered on 09/23/18 08:03; Start 09/15/18 at 09:00 Diltiazem HCl (Cardizem) 30 mg QID PO Last administered on 09/16/18 13:12; Start 09/15/18 at 09:00; Stop 09/16/18 at 16:23; Status DC Flecainide Acetate (Tambocor) 50 mg Q12HR PO Last administered on 09/23/18 08:04; Start 09/15/18 at 09:00 Meloxicam (Mobic) 15 mg DAILY PO Last administered on 09/23/18 08:02; Start 09/15/18 at 09:00 Clonazepam (KlonoPIN) 0.25 mg 1900 PO Last administered on 09/15/18 18:04; Start 09/15/18 at 19:00; Stop 09/16/18 at 16:57; Status DC Clonazepam (KlonoPIN) 0.25 mg PRN Q8HRS PRN PO ANXIETY / AGITATION Last administered on 09/23/18 12:34; Start 09/14/18 at 22:00 Cephalexin HCl (Keflex) 500 mg Q8HRS PO Last administered on 09/17/18 05:34; Start 09/15/18 at 06:00; Stop 09/17/18 at 12:47; Status DC Lactobacillus Rhamnosus (Culturelle) 1 cap BID PO Last administered on 09/23/18 08:03; Start 09/15/18 at 09:00 Diltiazem HCl (Cardizem 24hr Cd) 120 mg DAILY PO Last administered on 09/23/18 08:02; Start 09/17/18 at 09:00 Clonazepam (KlonoPIN) 0.25 mg 1900 PO Last administered on 09/19/18 19:22; Start 09/16/18 at 20:00; Stop 09/20/18 at 16:15; Status DC Ceftriaxone Sodium (Rocephin Im) 1 gm DAILY IM ; Start 09/18/18 at 09:00; Stop 09/19/18 at 07:13; Status DC Mirtazapine (Remeron) 7.5 mg QHS PO Last administered on 09/18/18 19:48; Start 09/17/18 at 21:00; Stop 09/19/18 at 16:45; Status DC Trazodone HCl (Desyrel) 50 mg QHS PO Last administered on 09/22/18 19:53; Start 09/17/18 at 21:00 Trazodone HCl (Desyrel) 50 mg PRN QHS PRN PO INSOMNIA Last administered on 09/19/18 23:03; Start 09/17/18 at 20:30 Lidocaine (Lidoderm) 1 patch DAILY TD Last administered on 09/22/18 10:03; Start 09/20/18 at 09:00 Miscellaneous (Lidoderm Patch Removal) 1 ea QHS MC Last administered on 09/22/18at 21:00; Start 09/19/18 at 21:00 Mirtazapine (Remeron) 15 mg QHS PO Last administered on 09/22/18 19:53; Start 09/19/18 at 21:00 Clonazepam (KlonoPIN) 0.25 mg 2000 PO Last administered on 09/21/18 20:22; Start 09/20/18 at 20:00 Sertraline HCl (Zoloft) 50 mg DAILY PO Last administered on 09/23/18 08:00; Start 09/21/18 at 09:00; Stop 09/23/18 at 11:00; Status DC Sertraline HCl (Zoloft) 75 mg DAILY PO ; Start 09/24/18 at 09:00 Active Scripts Active Reported Cephalexin 500 Mg Capsule 500 Mg PO Q8HRS 7 Days Meloxicam 15 Mg Tablet 15 Mg PO DAILY Mucinex (Guaifenesin) 600 Mg Tablet.er 600 Mg PO BID Furosemide 20 Mg Tablet 20 Mg PO DAILY Flecainide Acetate 50 Mg Tablet 50 Mg PO BIDWMEALS Diltiazem 24Hr ER (Diltiazem HCl) 180 Mg Tab.er.24h 180 Mg PO DAILY Clonazepam 0.5 Mg Tablet 0.25 Mg PO PRN Q8HRS PRN Clonazepam 0.5 Mg Tablet 0.25 Mg PO DAILY19(DAILY @1900) Voltaren (Diclofenac Sodium) 100 Gm Gel..gram. 1 Cindy TP Q6HRS Nystatin 15 Gm Powder 1 Cindy TP BID Spiriva (Tiotropium [place]) 18 Mcg Cap.w.dev 1 Cap IH DAILY Klor-Con M20 (Potassium Chloride) 20 Meq Tab.er.prt 20 Meq PO DAILY Melatonin 3 Mg Tablet 9 Mg PO HS Losartan Potassium 50 Mg Tablet 100 Mg PO DAILY Clopidogrel (Clopidogrel Bisulfate) 75 Mg Tablet 75 Mg PO DAILY Acetaminophen 500 Mg Tablet 500 Mg PO TID I have reviewed the current psychotropics carefully including drug interactions. Risk benefit ratio favors no change other than as noted in my dictated progress note. Diagnosis: Problems: (1) Major neurocognitive disorder (2) Anxiety disorder (3) Dementia, vascular, with depression (4) Depression (5) Dementia in Alzheimer's disease with depression (6) Dementia in Alzheimer's disease with delusions (7) Impulse control disorder BRITT HERRERA MD Sep 23, 2018 20:42
[2018-09-23] MEDS: MIRTAZAPINE 15 MG TABLET PO SCH (20:48)
[2018-09-23] MEDS: MELATONIN 3 MG TABLET PO SCH (20:49)
[2018-09-23] MEDS: traZODone 50 MG TABLET. PO SCH (20:49)
[2018-09-23] MEDS: clonazePAM 0.5 MG TABLET PO SCH (20:51)
[2018-09-23] MEDS: PATCH REMOVAL. MC SCH (20:51)
[2018-09-24] MEDS: IPRATRPIUM/ALBUTEROL 0.5/2.5MG 3 ML NEBU. NEB SCH ×4 (05:23→20:42)
[2018-09-24] MEDS: BUDESONIDE 0.5 MG/2 ML NEBU NEB SCH ×2 (05:23→20:42)
[2018-09-24 05:57] VITALS: BP 131/72
[2018-09-24] MEDS: POTASSIUM CHLORIDE 20 MEQ TABLET.ER. PO SCH (08:13)
[2018-09-24] MEDS: LACTOBACILLUS RHAMNOSUS GG 1 CAPSULE. PO SCH ×2 (08:19→20:30)
[2018-09-24] MEDS: LOSARTAN 50 MG TABLET. PO SCH (08:19)
[2018-09-24] MEDS: CLOPIDOGREL BISULFATE 75 MG TABLET PO SCH (08:19)
[2018-09-24] MEDS: FUROSEMIDE 20 MG TABLET PO SCH (08:19)
[2018-09-24] MEDS: MELOXICAM 15 MG TABLET. PO SCH (08:19)
[2018-09-24] MEDS: SERTRALINE 25 MG TABLET. PO SCH (08:21)
[2018-09-24] MEDS: ACETAMINOPHEN 500 MG TABLET PO SCH ×3 (08:21→20:30)
[2018-09-24] MEDS: FLECAINIDE 50 MG TABLET. PO SCH ×2 (08:21→20:33)
[2018-09-24] MEDS: LIDOCAINE (700MG/PATCH) PATCH. TD SCH (08:23)
[2018-09-24] MEDS: NYSTATIN TOPICAL POWDER 15GM BOTTLE. TP SCH ×2 (08:23→20:31)
--- NOTE | 2018-09-24 12:27 | PN ---
DATE: 09/23/2018 PSYCHIATRIC PROGRESS NOTE This late entry 09/23/2018 covers elements not covered in my initial note. SUBJECTIVE: I met with the patient in the evening. The patient slept 6-1/4 hours previous night. She had a better day. Per nursing report, she did have some vomiting after a.m. medications. Took Klonopin at lunch for anxiety and then had a good day, took her bedtime medications in pudding. REVIEW OF SYSTEMS: No CV, , pulmonary, eye, ENT system symptoms on review. Gait unsteady, in wheelchair. MENTAL STATUS EXAM: Oriented to herself. Insight, judgment, recent and remote memory, attention, concentration, fund of knowledge poor consistent with her diagnosis mentioned in my initial note. PLAN: No change from initial note. MAN Adilia HERRERA MD DR: MEREDITH/rekha JOB#: [id number] / [id number]
[2018-09-24 15:47] VITALS: BP 95/65
[2018-09-24] MEDS: traZODone 50 MG TABLET. PO SCH (20:30)
[2018-09-24] MEDS: MIRTAZAPINE 15 MG TABLET PO SCH (20:30)
[2018-09-24] MEDS: MELATONIN 3 MG TABLET PO SCH (20:32)
[2018-09-24] MEDS: clonazePAM 0.5 MG TABLET PO SCH (20:32)
[2018-09-24] MEDS: PATCH REMOVAL. MC SCH (20:33)
[2018-09-24 20:37] VITALS: BP 142/82
--- NOTE | 2018-09-24 22:44 | PDOC ---
Exam Note: Obdulio Note: Please also refer to the separate dictated note~for this date of service dictated separately.~Patient seen individually. Discussed the patient with Nursing staff reviewed the chart.~Reviewed interim history and current functioning. Reviewed vital signs,~Labs/ Radiology~and current medications noted below. Continue current treatment with the changes noted in the dictated addendum note Assessment: Vital Signs: Vital Signs Date Time Temp Pulse Resp B/P (MAP) Pulse Ox O2 Delivery O2 Flow Rate FiO2 09/24/18 20:45 97 Room Air 09/24/18 20:37 97 142/82 (102) 09/24/18 15:47 98.1 20 09/22/18 21:39 2.0 I&O Intake and Output 09/24/18 07:00 Intake Total 480 ml Balance 480 ml Intake Oral 480 ml # Voids 1 # Bowel Movements 1 Current Medications: Meds: Current Medications Acetaminophen (Tylenol) 650 mg PRN Q6HRS PRN PO PAIN / TEMP Last administered on 09/21/18at 02:15; Start 09/14/18 at 04:00 Multi-Ingredient Ointment (Analgesic [place]) 1 cindy PRN QID PRN TP MUSCLE PAIN; Start 09/14/18 at 04:00 Al Hydroxide/Mg Hydroxide (Mylanta Plus Xs) 15 ml PRN AFTMEALHC PRN PO DYSPEPSIA; Start 09/14/18 at 04:00 Magnesium Hydroxide (Milk Of Magnesia) 2,400 mg PRN QHS PRN PO CONSTIPATION Last administered on 09/23/18at 14:32; Start 09/14/18 at 04:00 Vitamin D (Vitamin D3) 2,000 unit DAILY PO ; Start 09/14/18 at 09:00; Stop 09/14/18 at 22:02; Status DC Clopidogrel Bisulfate (Plavix) 75 mg DAILY PO Last administered on 09/24/18at 08:19; Start 09/14/18 at 09:00 Diclofenac Sodium (Voltaren) 1 cindy PRN Q6HRS PRN TP PAIN; Start 09/14/18 at 05:30 Nystatin (Nystop) 1 cindy BID TP Last administered on 09/24/18at 20:31; Start 09/14/18 at 09:00 Potassium Chloride (Klor-Con) 20 meq DAILYWBKFT PO Last administered on 09/24/18at 08:13; Start 09/14/18 at 08:00 Tramadol HCl (Ultram) 25 mg PRN Q4HRS PRN PO PAIN; Start 09/14/18 at 05:30; Stop 09/14/18 at 21:20; Status DC Acetaminophen (Tylenol) 500 mg TID PO Last administered on 09/24/18at 20:30; Start 09/14/18 at 09:00 Carvedilol (Coreg) 3.125 mg BIDWMEALS PO Last administered on 09/14/18at 17:00; Start 09/14/18 at 08:00; Stop 09/14/18 at 18:39; Status DC Clonazepam (KlonoPIN) 1 mg BID PO Last administered on 09/14/18at 10:01; Start 09/14/18 at 09:00; Stop 09/14/18 at 17:35; Status DC Duloxetine HCl (Cymbalta) 30 mg DAILY PO ; Start 09/14/18 at 09:00; Stop at 22:04; Status DC Losartan Potassium (Cozaar) 100 mg DAILY PO Last administered on 09/24/18at 08:19; Start 09/14/18 at 09:00 Melatonin 9 mg HS PO ; Start 09/14/18 at 21:00; Stop 09/14/18 at 21:00; Status DC Multivitamins/ Calcium (Thera-M Plus) 1 tab DAILY PO ; Start 09/14/18 at 09:00; Stop 09/14/18 at 22:02; Status DC Ondansetron HCl (Zofran Odt) 4 mg Q6HRS PO ; Start 09/14/18 at 06:00; Stop 09/14/18 at 06:23; Status DC Pregabalin (Lyrica) 150 mg BID PO Last administered on 09/14/18at 19:50; Start 09/14/18 at 09:00; Stop 09/14/18 at 22:02; Status DC Quetiapine Fumarate (SEROquel) 12.5 mg HS PO Last administered on 09/14/18at 19:51; Start 09/14/18 at 21:00; Stop 09/14/18 at 22:04; Status DC Sennosides (Senna) 8.6 mg PRN DAILY PRN PO CONSTIPATION; Start 09/14/18 at 05:30; Stop 09/14/18 at 18:39; Status DC Non-Formulary Medication (Tiotropium [place] (Spiriva)) 1 cap DAILY IH ; Start 09/14/18 at 09:00; Stop 09/14/18 at 09:00; Status DC Ondansetron HCl (Zofran Odt) 4 mg PRN Q6HRS PRN PO nausea; Start 09/14/18 at 06:30; Stop 09/14/18 at 22:02; Status DC Albuterol/ Ipratropium (Duoneb) 3 ml RTQID NEB Last administered on 09/24/18at 20:42; Start 09/14/18 at 08:00 Clonazepam (KlonoPIN) 1 mg DAILY PO ; Start 09/15/18 at 09:00; Stop 09/15/18 at 09:00; Status DC Clonazepam (KlonoPIN) 0.5 mg BID PO ; Start 09/18/18 at 09:00; Stop 09/18/18 at 09:00; Status DC Clonazepam (KlonoPIN) 0.5 mg QHS PO ; Start 09/14/18 at 21:00; Stop 09/14/18 at 21:00; Status DC Olanzapine (ZyPREXA ZYDIS) 2.5 mg PRN Q2HR PRN PO ANXIETY / AGITATION Last administered on 09/24/18at 17:02; Start 09/14/18 at 17:45 Melatonin 9 mg HS PO Last administered on 09/24/18at 20:32; Start 09/14/18 at 21:00 Albuterol Sulfate (Ventolin) 2.5 mg RTQID NEB ; Start 09/15/18 at 08:00; Stop 09/15/18 at 13:58; Status DC Budesonide (Pulmicort) 0.5 mg RTBID NEB Last administered on 09/24/18at 20:42; Start 09/15/18 at 08:00 Albuterol Sulfate (Ventolin) 2.5 mg PRN Q4HRS PRN NEB SHORTNESS OF BREATH; Start 09/14/18 at 21:00 Furosemide (Lasix) 20 mg DAILY PO Last administered on 09/24/18at 08:19; Start 09/15/18 at 09:00 Guaifenesin (Mucinex Er) 600 mg BID PO Last administered on 09/24/18 20:30; Start 09/15/18 at 09:00 Diltiazem HCl (Cardizem) 30 mg QID PO Last administered on 09/16/18 13:12; Start 09/15/18 at 09:00; Stop 09/16/18 at 16:23; Status DC Flecainide Acetate (Tambocor) 50 mg Q12HR PO Last administered on 09/24/18 20:33; Start 09/15/18 at 09:00 Meloxicam (Mobic) 15 mg DAILY PO Last administered on 09/24/18 08:19; Start 09/15/18 at 09:00 Clonazepam (KlonoPIN) 0.25 mg 1900 PO Last administered on 09/15/18 18:04; Start 09/15/18 at 19:00; Stop 09/16/18 at 16:57; Status DC Clonazepam (KlonoPIN) 0.25 mg PRN Q8HRS PRN PO ANXIETY / AGITATION Last administered on 09/23/18 12:34; Start 09/14/18 at 22:00 Cephalexin HCl (Keflex) 500 mg Q8HRS PO Last administered on 09/17/18 05:34; Start 09/15/18 at 06:00; Stop 09/17/18 at 12:47; Status DC Lactobacillus Rhamnosus (Culturelle) 1 cap BID PO Last administered on 09/24/18 20:30; Start 09/15/18 at 09:00 Diltiazem HCl (Cardizem 24hr Cd) 120 mg DAILY PO Last administered on 09/24/18 08:18; Start 09/17/18 at 09:00 Clonazepam (KlonoPIN) 0.25 mg 1900 PO Last administered on 09/19/18 19:22; Start 09/16/18 at 20:00; Stop 09/20/18 at 16:15; Status DC Ceftriaxone Sodium (Rocephin Im) 1 gm DAILY IM ; Start 09/18/18 at 09:00; Stop 09/19/18 at 07:13; Status DC Mirtazapine (Remeron) 7.5 mg QHS PO Last administered on 09/18/18 19:48; Start 09/17/18 at 21:00; Stop 09/19/18 at 16:45; Status DC Trazodone HCl (Desyrel) 50 mg QHS PO Last administered on 09/24/18 20:30; Start 09/17/18 at 21:00 Trazodone HCl (Desyrel) 50 mg PRN QHS PRN PO INSOMNIA Last administered on 09/19/18 23:03; Start 09/17/18 at 20:30 Lidocaine (Lidoderm) 1 patch DAILY TD Last administered on 09/24/18 08:23; Start 09/20/18 at 09:00 Miscellaneous (Lidoderm Patch Removal) 1 ea QHS MC Last administered on 09/22/18 21:00; Start 09/19/18 at 21:00 Mirtazapine (Remeron) 15 mg QHS PO Last administered on 09/24/18 20:30; Start 09/19/18 at 21:00 Clonazepam (KlonoPIN) 0.25 mg 2000 PO Last administered on 09/24/18 20:32; Start 09/20/18 at 20:00 Sertraline HCl (Zoloft) 50 mg DAILY PO Last administered on 09/23/18 08:00; Start 09/21/18 at 09:00; Stop 09/23/18 at 11:00; Status DC Sertraline HCl (Zoloft) 75 mg DAILY PO Last administered on 09/24/18 08:21; Start 09/24/18 at 09:00 Active Scripts Active Reported Cephalexin 500 Mg Capsule 500 Mg PO Q8HRS 7 Days Meloxicam 15 Mg Tablet 15 Mg PO DAILY Mucinex (Guaifenesin) 600 Mg Tablet.er 600 Mg PO BID Furosemide 20 Mg Tablet 20 Mg PO DAILY Flecainide Acetate 50 Mg Tablet 50 Mg PO BIDWMEALS Diltiazem 24Hr ER (Diltiazem HCl) 180 Mg Tab.er.24h 180 Mg PO DAILY Clonazepam 0.5 Mg Tablet 0.25 Mg PO PRN Q8HRS PRN Clonazepam 0.5 Mg Tablet 0.25 Mg PO DAILY19(DAILY @1900) Voltaren (Diclofenac Sodium) 100 Gm Gel..gram. 1 Cindy TP Q6HRS Nystatin 15 Gm Powder 1 Cindy TP BID Spiriva (Tiotropium [place]) 18 Mcg Cap.w.dev 1 Cap IH DAILY Klor-Con M20 (Potassium Chloride) 20 Meq Tab.er.prt 20 Meq PO DAILY Melatonin 3 Mg Tablet 9 Mg PO HS Losartan Potassium 50 Mg Tablet 100 Mg PO DAILY Clopidogrel (Clopidogrel Bisulfate) 75 Mg Tablet 75 Mg PO DAILY Acetaminophen 500 Mg Tablet 500 Mg PO TID I have reviewed the current psychotropics carefully including drug interactions. Risk benefit ratio favors no change other than as noted in my dictated progress note. Diagnosis: Problems: (1) Major neurocognitive disorder (2) Anxiety disorder (3) Dementia, vascular, with depression (4) Depression (5) Dementia in Alzheimer's disease with depression (6) Dementia in Alzheimer's disease with delusions (7) Impulse control disorder BRITT HERRERA MD Sep 24, 2018 22:44
[2018-09-25] MEDS: BUDESONIDE 0.5 MG/2 ML NEBU NEB SCH ×2 (05:28→20:00)
[2018-09-25] MEDS: IPRATRPIUM/ALBUTEROL 0.5/2.5MG 3 ML NEBU. NEB SCH ×4 (05:28→20:00)
[2018-09-25 05:57] VITALS: BP 119/76
[2018-09-25] MEDS: POTASSIUM CHLORIDE 20 MEQ TABLET.ER. PO SCH (08:15)
[2018-09-25] MEDS: LACTOBACILLUS RHAMNOSUS GG 1 CAPSULE. PO SCH ×2 (08:17→20:02)
[2018-09-25] MEDS: LOSARTAN 50 MG TABLET. PO SCH (08:17)
[2018-09-25] MEDS: FUROSEMIDE 20 MG TABLET PO SCH (08:17)
[2018-09-25] MEDS: MELOXICAM 15 MG TABLET. PO SCH (08:17)
[2018-09-25] MEDS: LIDOCAINE (700MG/PATCH) PATCH. TD SCH (08:18)
[2018-09-25] MEDS: NYSTATIN TOPICAL POWDER 15GM BOTTLE. TP SCH ×2 (08:18→22:49)
[2018-09-25] MEDS: SERTRALINE 25 MG TABLET. PO SCH (08:18)
[2018-09-25] MEDS: CLOPIDOGREL BISULFATE 75 MG TABLET PO SCH ×2 (08:18→20:02)
[2018-09-25] MEDS: ACETAMINOPHEN 500 MG TABLET PO SCH ×3 (08:18→20:03)
[2018-09-25] MEDS: FLECAINIDE 50 MG TABLET. PO SCH ×2 (08:20→20:05)
--- NOTE | 2018-09-25 11:32 | PN ---
DATE: 09/24/2018 PSYCHIATRIC PROGRESS NOTE This late entry, 09/24/2018, covers elements not covered in my initial note. SUBJECTIVE: I met with the patient in the evening. She did well the previous night, slept 6-1/4 hours. During the day on 09/24/2018, she did well until 1700, then refused to leave the dining room, was irritable, anxious, but then relented. She received Zyprexa p.r.n., then did better. REVIEW OF SYSTEMS: No CV, , pulmonary, eye, ENT system symptoms on review. Reliability poor. MENTAL STATUS EXAM: Oriented to herself. Insight, judgment, recent and remote memory, attention, concentration, fund of knowledge poor, consistent with her diagnosis mentioned in my initial note. PLAN: No change from initial note. MAN Adilia HERRERA MD DR: MEREDITH/rekha JOB#: [id number] / [id number]
[2018-09-25 15:45] VITALS: BP 136/72
[2018-09-25] MEDS: traZODone 50 MG TABLET. PO SCH (20:02)
[2018-09-25] MEDS: MELATONIN 3 MG TABLET PO SCH (20:03)
[2018-09-25] MEDS: clonazePAM 0.5 MG TABLET PO SCH (20:03)
[2018-09-25] MEDS: MIRTAZAPINE 15 MG TABLET PO SCH (20:03)
[2018-09-25] MEDS: PATCH REMOVAL. MC SCH (21:00)
--- NOTE | 2018-09-25 22:37 | PDOC ---
Exam Note: Obdulio Note: Please also refer to the separate dictated note~for this date of service dictated separately.~Patient seen individually. Discussed the patient with Nursing staff reviewed the chart.~Reviewed interim history and current functioning. Reviewed vital signs,~Labs/ Radiology~and current medications noted below. Continue current treatment with the changes noted in the dictated addendum note Assessment: Vital Signs: Vital Signs Date Time Temp Pulse Resp B/P (MAP) Pulse Ox O2 Delivery O2 Flow Rate FiO2 09/25/18 20:05 89 136/72 09/25/18 16:54 93 Room Air 09/25/18 15:45 98.2 18 09/22/18 21:39 2.0 I&O Intake and Output 09/25/18 07:00 Intake Total 960 ml Balance 960 ml Intake Oral 960 ml Current Medications: Meds: Current Medications Acetaminophen (Tylenol) 650 mg PRN Q6HRS PRN PO PAIN / TEMP Last administered on 09/21/18at 02:15; Start 09/14/18 at 04:00 Multi-Ingredient Ointment (Analgesic [place]) 1 cindy PRN QID PRN TP MUSCLE PAIN; Start 09/14/18 at 04:00 Al Hydroxide/Mg Hydroxide (Mylanta Plus Xs) 15 ml PRN AFTMEALHC PRN PO DYSPEPSIA; Start 09/14/18 at 04:00 Magnesium Hydroxide (Milk Of Magnesia) 2,400 mg PRN QHS PRN PO CONSTIPATION Last administered on 09/23/18at 14:32; Start 09/14/18 at 04:00 Vitamin D (Vitamin D3) 2,000 unit DAILY PO ; Start 09/14/18 at 09:00; Stop 09/14/18 at 22:02; Status DC Clopidogrel Bisulfate (Plavix) 75 mg DAILY PO Last administered on 09/25/18at 20:02; Start 09/14/18 at 09:00 Diclofenac Sodium (Voltaren) 1 cindy PRN Q6HRS PRN TP PAIN; Start 09/14/18 at 05:30 Nystatin (Nystop) 1 cindy BID TP Last administered on 09/25/18at 08:18; Start 09/14/18 at 09:00 Potassium Chloride (Klor-Con) 20 meq DAILYWBKFT PO Last administered on 09/25/18at 08:15; Start 09/14/18 at 08:00 Tramadol HCl (Ultram) 25 mg PRN Q4HRS PRN PO PAIN; Start 09/14/18 at 05:30; Stop 09/14/18 at 21:20; Status DC Acetaminophen (Tylenol) 500 mg TID PO Last administered on 09/25/18at 20:03; Start 09/14/18 at 09:00 Carvedilol (Coreg) 3.125 mg BIDWMEALS PO Last administered on 09/14/18at 17:00; Start 09/14/18 at 08:00; Stop 09/14/18 at 18:39; Status DC Clonazepam (KlonoPIN) 1 mg BID PO Last administered on 09/14/18at 10:01; Start 09/14/18 at 09:00; Stop 09/14/18 at 17:35; Status DC Duloxetine HCl (Cymbalta) 30 mg DAILY PO ; Start 09/14/18 at 09:00; Stop 09/14/18 at 22:04; Status DC Losartan Potassium (Cozaar) 100 mg DAILY PO Last administered on 09/25/18at 08:17; Start 09/14/18 at 09:00 Melatonin 9 mg HS PO ; Start 09/14/18 at 21:00; Stop 09/14/18 at 21:00; Status DC Multivitamins/ Calcium (Thera-M Plus) 1 tab DAILY PO ; Start 09/14/18 at 09:00; Stop 09/14/18 at 22:02; Status DC Ondansetron HCl (Zofran Odt) 4 mg Q6HRS PO ; Start 09/14/18 at 06:00; Stop 09/14/18 at 06:23; Status DC Pregabalin (Lyrica) 150 mg BID PO Last administered on 09/14/18at 19:50; Start 09/14/18 at 09:00; Stop 09/14/18 at 22:02; Status DC Quetiapine Fumarate (SEROquel) 12.5 mg HS PO Last administered on 09/14/18at 19:51; Start 09/14/18 at 21:00; Stop 09/14/18 at 22:04; Status DC Sennosides (Senna) 8.6 mg PRN DAILY PRN PO CONSTIPATION; Start 09/14/18 at 05:30; Stop 09/14/18 at 18:39; Status DC Non-Formulary Medication (Tiotropium [place] (Spiriva)) 1 cap DAILY IH ; Start 09/14/18 at 09:00; Stop 09/14/18 at 09:00; Status DC Ondansetron HCl (Zofran Odt) 4 mg PRN Q6HRS PRN PO nausea; Start 09/14/18 at 06:30; Stop 09/14/18 at 22:02; Status DC Albuterol/ Ipratropium (Duoneb) 3 ml RTQID NEB Last administered on 09/25/18at 16:00; Start 09/14/18 at 08:00 Clonazepam (KlonoPIN) 1 mg DAILY PO ; Start 09/15/18 at 09:00; Stop 09/15/18 at 09:00; Status DC Clonazepam (KlonoPIN) 0.5 mg BID PO ; Start 09/18/18 at 09:00; Stop 09/18/18 at 09:00; Status DC Clonazepam (KlonoPIN) 0.5 mg QHS PO ; Start 09/14/18 at 21:00; Stop 09/14/18 at 21:00; Status DC Olanzapine (ZyPREXA ZYDIS) 2.5 mg PRN Q2HR PRN PO ANXIETY / AGITATION Last administered on 09/24/18at 17:02; Start 09/14/18 at 17:45 Melatonin 9 mg HS PO Last administered on 09/25/18at 20:03; Start 09/14/18 at 21:00 Albuterol Sulfate (Ventolin) 2.5 mg RTQID NEB ; Start 09/15/18 at 08:00; Stop 09/15/18 at 13:58; Status DC Budesonide (Pulmicort) 0.5 mg RTBID NEB Last administered on 09/25/18at 05:28; Start 09/15/18 at 08:00 Albuterol Sulfate (Ventolin) 2.5 mg PRN Q4HRS PRN NEB SHORTNESS OF BREATH; Start 09/14/18 at 21:00 Furosemide (Lasix) 20 mg DAILY PO Last administered on 09/25/18at 08:17; Start 09/15/18 at 09:00 Guaifenesin (Mucinex Er) 600 mg BID PO Last administered on 09/25/18 20:03; Start 09/15/18 at 09:00 Diltiazem HCl (Cardizem) 30 mg QID PO Last administered on 09/16/18 13:12; Start 09/15/18 at 09:00; Stop 09/16/18 at 16:23; Status DC Flecainide Acetate (Tambocor) 50 mg Q12HR PO Last administered on 09/25/18 20:05; Start 09/15/18 at 09:00 Meloxicam (Mobic) 15 mg DAILY PO Last administered on 09/25/18 08:17; Start 09/15/18 at 09:00 Clonazepam (KlonoPIN) 0.25 mg 1900 PO Last administered on 09/15/18 18:04; Start 09/15/18 at 19:00; Stop 09/16/18 at 16:57; Status DC Clonazepam (KlonoPIN) 0.25 mg PRN Q8HRS PRN PO ANXIETY / AGITATION Last administered on 09/23/18 12:34; Start 09/14/18 at 22:00 Cephalexin HCl (Keflex) 500 mg Q8HRS PO Last administered on 09/17/18 05:34; Start 09/15/18 at 06:00; Stop 09/17/18 at 12:47; Status DC Lactobacillus Rhamnosus (Culturelle) 1 cap BID PO Last administered on 09/25/18 20:02; Start 09/15/18 at 09:00 Diltiazem HCl (Cardizem 24hr Cd) 120 mg DAILY PO Last administered on 09/25/18 08:16; Start 09/17/18 at 09:00 Clonazepam (KlonoPIN) 0.25 mg 1900 PO Last administered on 09/19/18 19:22; Start 09/16/18 at 20:00; Stop 09/20/18 at 16:15; Status DC Ceftriaxone Sodium (Rocephin Im) 1 gm DAILY IM ; Start 09/18/18 at 09:00; Stop 09/19/18 at 07:13; Status DC Mirtazapine (Remeron) 7.5 mg QHS PO Last administered on 09/18/18 19:48; Start 09/17/18 at 21:00; Stop 09/19/18 at 16:45; Status DC Trazodone HCl (Desyrel) 50 mg QHS PO Last administered on 09/25/18 20:02; Start 09/17/18 at 21:00 Trazodone HCl (Desyrel) 50 mg PRN QHS PRN PO INSOMNIA Last administered on 09/19/18 23:03; Start 09/17/18 at 20:30 Lidocaine (Lidoderm) 1 patch DAILY TD Last administered on 09/25/18 08:18; Start 09/20/18 at 09:00 Miscellaneous (Lidoderm Patch Removal) 1 ea QHS MC Last administered on 09/22/18 21:00; Start 09/19/18 at 21:00 Mirtazapine (Remeron) 15 mg QHS PO Last administered on 09/25/18 20:03; Start 09/19/18 at 21:00 Clonazepam (KlonoPIN) 0.25 mg 2000 PO Last administered on 09/25/18 20:03; Start 09/20/18 at 20:00 Sertraline HCl (Zoloft) 50 mg DAILY PO Last administered on 09/23/18 08:00; Start 09/21/18 at 09:00; Stop 09/23/18 at 11:00; Status DC Sertraline HCl (Zoloft) 75 mg DAILY PO Last administered on 09/25/18 08:18; Start 09/24/18 at 09:00 Active Scripts Active Reported Cephalexin 500 Mg Capsule 500 Mg PO Q8HRS 7 Days Meloxicam 15 Mg Tablet 15 Mg PO DAILY Mucinex (Guaifenesin) 600 Mg Tablet.er 600 Mg PO BID Furosemide 20 Mg Tablet 20 Mg PO DAILY Flecainide Acetate 50 Mg Tablet 50 Mg PO BIDWMEALS Diltiazem 24Hr ER (Diltiazem HCl) 180 Mg Tab.er.24h 180 Mg PO DAILY Clonazepam 0.5 Mg Tablet 0.25 Mg PO PRN Q8HRS PRN Clonazepam 0.5 Mg Tablet 0.25 Mg PO DAILY19(DAILY @1900) Voltaren (Diclofenac Sodium) 100 Gm Gel..gram. 1 Cindy TP Q6HRS Nystatin 15 Gm Powder 1 Cindy TP BID Spiriva (Tiotropium [place]) 18 Mcg Cap.w.dev 1 Cap IH DAILY Klor-Con M20 (Potassium Chloride) 20 Meq Tab.er.prt 20 Meq PO DAILY Melatonin 3 Mg Tablet 9 Mg PO HS Losartan Potassium 50 Mg Tablet 100 Mg PO DAILY Clopidogrel (Clopidogrel Bisulfate) 75 Mg Tablet 75 Mg PO DAILY Acetaminophen 500 Mg Tablet 500 Mg PO TID I have reviewed the current psychotropics carefully including drug interactions. Risk benefit ratio favors no change other than as noted in my dictated progress note. Diagnosis: Problems: (1) Major neurocognitive disorder (2) Anxiety disorder (3) Dementia, vascular, with depression (4) Depression (5) Dementia in Alzheimer's disease with depression (6) Dementia in Alzheimer's disease with delusions (7) Impulse control disorder BRITT HERRERA MD Sep 25, 2018 22:36
[2018-09-26 05:38] VITALS: BP 164/87
[2018-09-26] MEDS: IPRATRPIUM/ALBUTEROL 0.5/2.5MG 3 ML NEBU. NEB SCH ×4 (05:51→20:00)
[2018-09-26] MEDS: POTASSIUM CHLORIDE 20 MEQ TABLET.ER. PO SCH (07:52)
[2018-09-26] MEDS: LACTOBACILLUS RHAMNOSUS GG 1 CAPSULE. PO SCH ×2 (07:52→20:07)
[2018-09-26] MEDS: ACETAMINOPHEN 500 MG TABLET PO SCH ×3 (07:53→20:07)
[2018-09-26] MEDS: FLECAINIDE 50 MG TABLET. PO SCH ×2 (07:53→20:10)
[2018-09-26] MEDS: LOSARTAN 50 MG TABLET. PO SCH (07:54)
[2018-09-26] MEDS: MELOXICAM 15 MG TABLET. PO SCH (07:54)
[2018-09-26] MEDS: FUROSEMIDE 20 MG TABLET PO SCH (07:54)
[2018-09-26] MEDS: SERTRALINE 25 MG TABLET. PO SCH (07:54)
[2018-09-26] MEDS: NYSTATIN TOPICAL POWDER 15GM BOTTLE. TP SCH ×2 (07:55→23:22)
[2018-09-26] MEDS: LIDOCAINE (700MG/PATCH) PATCH. TD SCH (07:55)
[2018-09-26] MEDS: BUDESONIDE 0.5 MG/2 ML NEBU NEB SCH ×2 (08:00→20:00)
[2018-09-26 16:31] VITALS: BP 115/80
[2018-09-26] MEDS: MELATONIN 3 MG TABLET PO SCH (20:07)
[2018-09-26] MEDS: traZODone 50 MG TABLET. PO SCH (20:07)
[2018-09-26] MEDS: MIRTAZAPINE 15 MG TABLET PO SCH (20:07)
[2018-09-26] MEDS: clonazePAM 0.5 MG TABLET PO SCH (20:09)
[2018-09-26] MEDS: PATCH REMOVAL. MC SCH (21:00)
--- NOTE | 2018-09-26 22:42 | PDOC ---
Exam Note: Obdulio Note: Please also refer to the separate dictated note~for this date of service dictated separately.~Patient seen individually. Discussed the patient with Nursing staff reviewed the chart.~Reviewed interim history and current functioning. Reviewed vital signs,~Labs/ Radiology~and current medications noted below. Continue current treatment with the changes noted in the dictated addendum note Assessment: Vital Signs: Vital Signs Date Time Temp Pulse Resp B/P (MAP) Pulse Ox O2 Delivery O2 Flow Rate FiO2 09/26/18 20:10 99 115/80 09/26/18 16:31 98.6 20 93 09/26/18 11:57 Room Air 09/22/18 21:39 2.0 I&O Intake and Output 09/26/18 07:00 Intake Total 960 ml Balance 960 ml Intake Oral 960 ml Current Medications: Meds: Current Medications Acetaminophen (Tylenol) 650 mg PRN Q6HRS PRN PO PAIN / TEMP Last administered on 09/21/18at 02:15; Start 09/14/18 at 04:00 Multi-Ingredient Ointment (Analgesic [place]) 1 cindy PRN QID PRN TP MUSCLE PAIN; Start 09/14/18 at 04:00 Al Hydroxide/Mg Hydroxide (Mylanta Plus Xs) 15 ml PRN AFTMEALHC PRN PO DYSPEPSIA; Start 09/14/18 at 04:00 Magnesium Hydroxide (Milk Of Magnesia) 2,400 mg PRN QHS PRN PO CONSTIPATION Last administered on 09/23/18at 14:32; Start 09/14/18 at 04:00 Vitamin D (Vitamin D3) 2,000 unit DAILY PO ; Start 09/14/18 at 09:00; Stop 09/14/18 at 22:02; Status DC Clopidogrel Bisulfate (Plavix) 75 mg DAILY PO Last administered on 09/25/18at 20:02; Start 09/14/18 at 09:00 Diclofenac Sodium (Voltaren) 1 cindy PRN Q6HRS PRN TP PAIN; Start 09/14/18 at 05:30 Nystatin (Nystop) 1 cindy BID TP Last administered on 09/26/18at 07:55; Start 09/14/18 at 09:00 Potassium Chloride (Klor-Con) 20 meq DAILYWBKFT PO Last administered on 09/26/18at 07:52; Start 09/14/18 at 08:00 Tramadol HCl (Ultram) 25 mg PRN Q4HRS PRN PO PAIN; Start 09/14/18 at 05:30; Stop 09/14/18 at 21:20; Status DC Acetaminophen (Tylenol) 500 mg TID PO Last administered on 09/26/18at 20:07; Start 09/14/18 at 09:00 Carvedilol (Coreg) 3.125 mg BIDWMEALS PO Last administered on 09/14/18at 17:00; Start 09/14/18 at 08:00; Stop 09/14/18 at 18:39; Status DC Clonazepam (KlonoPIN) 1 mg BID PO Last administered on 09/14/18at 10:01; Start 09/14/18 at 09:00; Stop 09/14/18 at 17:35; Status DC Duloxetine HCl (Cymbalta) 30 mg DAILY PO ; Start 09/14/18 at 09:00; Stop 09/14/18 at 22:04; Status DC Losartan Potassium (Cozaar) 100 mg DAILY PO Last administered on 09/26/18at 07:54; Start 09/14/18 at 09:00 Melatonin 9 mg HS PO ; Start 09/14/18 at 21:00; Stop 09/14/18 at 21:00; Status DC Multivitamins/ Calcium (Thera-M Plus) 1 tab DAILY PO ; Start 09/14/18 at 09:00; Stop 09/14/18 at 22:02; Status DC Ondansetron HCl (Zofran Odt) 4 mg Q6HRS PO ; Start 09/14/18 at 06:00; Stop 09/14/18 at 06:23; Status DC Pregabalin (Lyrica) 150 mg BID PO Last administered on 09/14/18at 19:50; Start 09/14/18 at 09:00; Stop 09/14/18 at 22:02; Status DC Quetiapine Fumarate (SEROquel) 12.5 mg HS PO Last administered on 09/14/18at 19:51; Start 09/14/18 at 21:00; Stop 09/14/18 at 22:04; Status DC Sennosides (Senna) 8.6 mg PRN DAILY PRN PO CONSTIPATION; Start 09/14/18 at 05:30; Stop 09/14/18 at 18:39; Status DC Non-Formulary Medication (Tiotropium [place] (Spiriva)) 1 cap DAILY IH ; Start 09/14/18 at 09:00; Stop 09/14/18 at 09:00; Status DC Ondansetron HCl (Zofran Odt) 4 mg PRN Q6HRS PRN PO nausea; Start 09/14/18 at 06:30; Stop 09/14/18 at 22:02; Status DC Albuterol/ Ipratropium (Duoneb) 3 ml RTQID NEB Last administered on 09/26/18at 11:51; Start 09/14/18 at 08:00 Clonazepam (KlonoPIN) 1 mg DAILY PO ; Start 09/15/18 at 09:00; Stop 09/15/18 at 09:00; Status DC Clonazepam (KlonoPIN) 0.5 mg BID PO ; Start 09/18/18 at 09:00; Stop 09/18/18 at 09:00; Status DC Clonazepam (KlonoPIN) 0.5 mg QHS PO ; Start 09/14/18 at 21:00; Stop 09/14/18 at 21:00; Status DC Olanzapine (ZyPREXA ZYDIS) 2.5 mg PRN Q2HR PRN PO ANXIETY / AGITATION Last administered on 09/24/18at 17:02; Start 09/14/18 at 17:45 Melatonin 9 mg HS PO Last administered on 09/26/18at 20:07; Start 09/14/18 at 21:00 Albuterol Sulfate (Ventolin) 2.5 mg RTQID NEB ; Start 09/15/18 at 08:00; Stop 09/15/18 at 13:58; Status DC Budesonide (Pulmicort) 0.5 mg RTBID NEB Last administered on 09/26/18at 08:00; Start 09/15/18 at 08:00 Albuterol Sulfate (Ventolin) 2.5 mg PRN Q4HRS PRN NEB SHORTNESS OF BREATH; Start 09/14/18 at 21:00 Furosemide (Lasix) 20 mg DAILY PO Last administered on 09/26/18at 07:54; Start 09/15/18 at 09:00 Guaifenesin (Mucinex Er) 600 mg BID PO Last administered on 09/26/18 20:07; Start 09/15/18 at 09:00 Diltiazem HCl (Cardizem) 30 mg QID PO Last administered on 09/16/18 13:12; Start 09/15/18 at 09:00; Stop 09/16/18 at 16:23; Status DC Flecainide Acetate (Tambocor) 50 mg Q12HR PO Last administered on 09/26/18 20:10; Start 09/15/18 at 09:00 Meloxicam (Mobic) 15 mg DAILY PO Last administered on 09/26/18 07:54; Start 09/15/18 at 09:00 Clonazepam (KlonoPIN) 0.25 mg 1900 PO Last administered on 09/15/18 18:04; Start 09/15/18 at 19:00; Stop 09/16/18 at 16:57; Status DC Clonazepam (KlonoPIN) 0.25 mg PRN Q8HRS PRN PO ANXIETY / AGITATION Last administered on 09/23/18 12:34; Start 09/14/18 at 22:00 Cephalexin HCl (Keflex) 500 mg Q8HRS PO Last administered on 09/17/18 05:34; Start 09/15/18 at 06:00; Stop 09/17/18 at 12:47; Status DC Lactobacillus Rhamnosus (Culturelle) 1 cap BID PO Last administered on 09/26/18 20:07; Start 09/15/18 at 09:00 Diltiazem HCl (Cardizem 24hr Cd) 120 mg DAILY PO Last administered on 09/26/18 07:53; Start 09/17/18 at 09:00 Clonazepam (KlonoPIN) 0.25 mg 1900 PO Last administered on 09/19/18 19:22; Start 09/16/18 at 20:00; Stop 09/20/18 at 16:15; Status DC Ceftriaxone Sodium (Rocephin Im) 1 gm DAILY IM ; Start 09/18/18 at 09:00; Stop 09/19/18 at 07:13; Status DC Mirtazapine (Remeron) 7.5 mg QHS PO Last administered on 09/18/18 19:48; Start 09/17/18 at 21:00; Stop 09/19/18 at 16:45; Status DC Trazodone HCl (Desyrel) 50 mg QHS PO Last administered on 09/26/18 20:07; Start 09/17/18 at 21:00 Trazodone HCl (Desyrel) 50 mg PRN QHS PRN PO INSOMNIA Last administered on 09/19/18 23:03; Start 09/17/18 at 20:30 Lidocaine (Lidoderm) 1 patch DAILY TD Last administered on 09/26/18 07:55; Start 09/20/18 at 09:00 Miscellaneous (Lidoderm Patch Removal) 1 ea QHS MC Last administered on 09/25/18 21:00; Start 09/19/18 at 21:00 Mirtazapine (Remeron) 15 mg QHS PO Last administered on 09/26/18 20:07; Start 09/19/18 at 21:00 Clonazepam (KlonoPIN) 0.25 mg 2000 PO Last administered on 09/26/18 20:09; Start 09/20/18 at 20:00 Sertraline HCl (Zoloft) 50 mg DAILY PO Last administered on 09/23/18 08:00; Start 09/21/18 at 09:00; Stop 09/23/18 at 11:00; Status DC Sertraline HCl (Zoloft) 75 mg DAILY PO Last administered on 09/26/18 07:54; Start 09/24/18 at 09:00 Active Scripts Active Reported Cephalexin 500 Mg Capsule 500 Mg PO Q8HRS 7 Days Meloxicam 15 Mg Tablet 15 Mg PO DAILY Mucinex (Guaifenesin) 600 Mg Tablet.er 600 Mg PO BID Furosemide 20 Mg Tablet 20 Mg PO DAILY Flecainide Acetate 50 Mg Tablet 50 Mg PO BIDWMEALS Diltiazem 24Hr ER (Diltiazem HCl) 180 Mg Tab.er.24h 180 Mg PO DAILY Clonazepam 0.5 Mg Tablet 0.25 Mg PO PRN Q8HRS PRN Clonazepam 0.5 Mg Tablet 0.25 Mg PO DAILY19(DAILY @1900) Voltaren (Diclofenac Sodium) 100 Gm Gel..gram. 1 Cindy TP Q6HRS Nystatin 15 Gm Powder 1 Cindy TP BID Spiriva (Tiotropium [place]) 18 Mcg Cap.w.dev 1 Cap IH DAILY Klor-Con M20 (Potassium Chloride) 20 Meq Tab.er.prt 20 Meq PO DAILY Melatonin 3 Mg Tablet 9 Mg PO HS Losartan Potassium 50 Mg Tablet 100 Mg PO DAILY Clopidogrel (Clopidogrel Bisulfate) 75 Mg Tablet 75 Mg PO DAILY Acetaminophen 500 Mg Tablet 500 Mg PO TID I have reviewed the current psychotropics carefully including drug interactions. Risk benefit ratio favors no change other than as noted in my dictated progress note. Diagnosis: Problems: (1) Major neurocognitive disorder (2) Anxiety disorder (3) Dementia, vascular, with depression (4) Depression (5) Dementia in Alzheimer's disease with depression (6) Dementia in Alzheimer's disease with delusions (7) Impulse control disorder BRITT HERRERA MD Sep 26, 2018 22:42
--- NOTE | 2018-09-26 23:49 | PN ---
DATE: 09/25/2018 PSYCHIATRIC PROGRESS NOTE This is a late entry 09/25/2018, covers elements not covered in my initial note. I met with the patient in the evening. The patient slept 6-3/4 hours previous night. She is compliant with the medications, keeps her oxygen in place. No CV, , pulmonary, eye, ENT system symptoms on review other than being on O2 supplements. MENTAL STATUS EXAM: Oriented to herself. Insight, judgment, recent memory is impaired. Language function intact. Attention span short. Mood and affect remain somewhat anxious and labile, but better than before. LABORATORY DATA: Reviewed. IMPRESSION: Unchanged from initial note. PLAN: No change from initial note. BRITT HERRERA MD DR: MEREDITH/rekha JOB#: [id number] / [id number]
[2018-09-27] MEDS: IPRATRPIUM/ALBUTEROL 0.5/2.5MG 3 ML NEBU. NEB SCH ×4 (05:07→20:50)
[2018-09-27 05:57] VITALS: BP 122/75
[2018-09-27] MEDS: POTASSIUM CHLORIDE 20 MEQ TABLET.ER. PO SCH (07:58)
[2018-09-27] MEDS: LOSARTAN 50 MG TABLET. PO SCH (08:00)
[2018-09-27] MEDS: FUROSEMIDE 20 MG TABLET PO SCH (08:00)
[2018-09-27] MEDS: BUDESONIDE 0.5 MG/2 ML NEBU NEB SCH ×2 (08:00→20:50)
[2018-09-27] MEDS: MELOXICAM 15 MG TABLET. PO SCH (08:00)
[2018-09-27] MEDS: LACTOBACILLUS RHAMNOSUS GG 1 CAPSULE. PO SCH ×2 (08:00→20:25)
[2018-09-27] MEDS: ACETAMINOPHEN 500 MG TABLET PO SCH ×3 (08:01→20:26)
[2018-09-27] MEDS: FLECAINIDE 50 MG TABLET. PO SCH ×2 (08:01→20:26)
[2018-09-27] MEDS: CLOPIDOGREL BISULFATE 75 MG TABLET PO SCH (08:01)
[2018-09-27] MEDS: LIDOCAINE (700MG/PATCH) PATCH. TD SCH (08:02)
[2018-09-27] MEDS: SERTRALINE 25 MG TABLET. PO SCH (08:02)
[2018-09-27] MEDS: NYSTATIN TOPICAL POWDER 15GM BOTTLE. TP SCH ×2 (08:03→23:20)
[2018-09-27 15:42] VITALS: BP 143/82
[2018-09-27] MEDS: traZODone 50 MG TABLET. PO SCH (20:25)
[2018-09-27] MEDS: MIRTAZAPINE 15 MG TABLET PO SCH (20:25)
[2018-09-27] MEDS: MELATONIN 3 MG TABLET PO SCH (20:25)
[2018-09-27] MEDS: clonazePAM 0.5 MG TABLET PO SCH (20:29)
[2018-09-27] MEDS: PATCH REMOVAL. MC SCH (21:00)
--- NOTE | 2018-09-27 23:00 | PDOC ---
Exam Note: Obdulio Note: Please also refer to the separate dictated note~for this date of service dictated separately.~Patient seen individually. Discussed the patient with Nursing staff reviewed the chart.~Reviewed interim history and current functioning. Reviewed vital signs,~Labs/ Radiology~and current medications noted below. Continue current treatment with the changes noted in the dictated addendum note Assessment: Vital Signs: Vital Signs Date Time Temp Pulse Resp B/P (MAP) Pulse Ox O2 Delivery O2 Flow Rate FiO2 09/27/18 20:54 93 Room Air 09/27/18 20:26 103 143/82 09/27/18 15:42 97.9 20 09/27/18 05:57 3.0 I&O Intake and Output 09/27/18 06:59 Intake Total 840 ml Balance 840 ml Intake Oral 840 ml Current Medications: Meds: Current Medications Acetaminophen (Tylenol) 650 mg PRN Q6HRS PRN PO PAIN / TEMP Last administered on 09/21/18at 02:15; Start 09/14/18 at 04:00 Multi-Ingredient Ointment (Analgesic [place]) 1 cindy PRN QID PRN TP MUSCLE PAIN; Start 09/14/18 at 04:00 Al Hydroxide/Mg Hydroxide (Mylanta Plus Xs) 15 ml PRN AFTMEALHC PRN PO DYSPEPSIA; Start 09/14/18 at 04:00 Magnesium Hydroxide (Milk Of Magnesia) 2,400 mg PRN QHS PRN PO CONSTIPATION Last administered on 09/23/18at 14:32; Start 09/14/18 at 04:00 Vitamin D (Vitamin D3) 2,000 unit DAILY PO ; Start 09/14/18 at 09:00; Stop 09/14/18 at 22:02; Status DC Clopidogrel Bisulfate (Plavix) 75 mg DAILY PO Last administered on 09/27/18at 08:01; Start 09/14/18 at 09:00 Diclofenac Sodium (Voltaren) 1 cindy PRN Q6HRS PRN TP PAIN; Start 09/14/18 at 05:30 Nystatin (Nystop) 1 cindy BID TP Last administered on 09/27/18at 08:03; Start 09/14/18 at 09:00 Potassium Chloride (Klor-Con) 20 meq DAILYWBKFT PO Last administered on 09/27/18at 07:58; Start 09/14/18 at 08:00 Tramadol HCl (Ultram) 25 mg PRN Q4HRS PRN PO PAIN; Start 09/14/18 at 05:30; St op 09/14/18 at 21:20; Status DC Acetaminophen (Tylenol) 500 mg TID PO Last administered on 09/27/18at 20:26; Start 09/14/18 at 09:00 Carvedilol (Coreg) 3.125 mg BIDWMEALS PO Last administered on 09/14/18at 17:00; Start 09/14/18 at 08:00; Stop 09/14/18 at 18:39; Status DC Clonazepam (KlonoPIN) 1 mg BID PO Last administered on 09/14/18at 10:01; Start 09/14/18 at 09:00; Stop 09/14/18 at 17:35; Status DC Duloxetine HCl (Cymbalta) 30 mg DAILY PO ; Start 09/14/18 at 09:00; Stop 09/14/18 at 22:04; Status DC Losartan Potassium (Cozaar) 100 mg DAILY PO Last administered on 09/27/18at 08:00; Start 09/14/18 at 09:00 Melatonin 9 mg HS PO ; Start 09/14/18 at 21:00; Stop 09/14/18 at 21:00; Status DC Multivitamins/ Calcium (Thera-M Plus) 1 tab DAILY PO ; Start 09/14/18 at 09:00; Stop 09/14/18 at 22:02; Status DC Ondansetron HCl (Zofran Odt) 4 mg Q6HRS PO ; Start 09/14/18 at 06:00; Stop 09/14/18 at 06:23; Status DC Pregabalin (Lyrica) 150 mg BID PO Last administered on 09/14/18at 19:50; Start 09/14/18 at 09:00; Stop 09/14/18 at 22:02; Status DC Quetiapine Fumarate (SEROquel) 12.5 mg HS PO Last administered on 09/14/18at 19:51; Start 09/14/18 at 21:00; Stop 09/14/18 at 22:04; Status DC Sennosides (Senna) 8.6 mg PRN DAILY PRN PO CONSTIPATION; Start 09/14/18 at 05:30; Stop 09/14/18 at 18:39; Status DC Non-Formulary Medication (Tiotropium [place] (Spiriva)) 1 cap DAILY IH ; Start 09/14/18 at 09:00; Stop 09/14/18 at 09:00; Status DC Ondansetron HCl (Zofran Odt) 4 mg PRN Q6HRS PRN PO nausea; Start 09/14/18 at 06:30; Stop 09/14/18 at 22:02; Status DC Albuterol/ Ipratropium (Duoneb) 3 ml RTQID NEB Last administered on 09/27/18at 20:50; Start 09/14/18 at 08:00 Clonazepam (KlonoPIN) 1 mg DAILY PO ; Start 09/15/18 at 09:00; Stop 09/15/18 at 09:00; Status DC Clonazepam (KlonoPIN) 0.5 mg BID PO ; Start 09/18/18 at 09:00; Stop 09/18/18 at 09:00; Status DC Clonazepam (KlonoPIN) 0.5 mg QHS PO ; Start 09/14/18 at 21:00; Stop 09/14/18 at 21:00; Status DC Olanzapine (ZyPREXA ZYDIS) 2.5 mg PRN Q2HR PRN PO ANXIETY / AGITATION Last adm inistered on 09/24/18at 17:02; Start 09/14/18 at 17:45 Melatonin 9 mg HS PO Last administered on 09/27/18at 20:25; Start 09/14/18 at 21:00 Albuterol Sulfate (Ventolin) 2.5 mg RTQID NEB ; Start 09/15/18 at 08:00; Stop 09/15/18 at 13:58; Status DC Budesonide (Pulmicort) 0.5 mg RTBID NEB Last administered on 09/27/18at 20:50; Start 09/15/18 at 08:00 Albuterol Sulfate (Ventolin) 2.5 mg PRN Q4HRS PRN NEB SHORTNESS OF BREATH; Start 09/14/18 at 21:00 Furosemide (Lasix) 20 mg DAILY PO Last administered on 09/27/18at 08:00; Start 09/15/18 at 09:00 Guaifenesin (Mucinex Er) 600 mg BID PO Last administered on 09/27/18 20:27; Start 09/15/18 at 09:00 Diltiazem HCl (Cardizem) 30 mg QID PO Last administered on 09/16/18 13:12; Start 09/15/18 at 09:00; Stop 09/16/18 at 16:23; Status DC Flecainide Acetate (Tambocor) 50 mg Q12HR PO Last administered on 09/27/18 20:26; Start 09/15/18 at 09:00 Meloxicam (Mobic) 15 mg DAILY PO Last administered on 09/27/18 08:00; Start 09/15/18 at 09:00 Clonazepam (KlonoPIN) 0.25 mg 1900 PO Last administered on 09/15/18 18:04; Start 09/15/18 at 19:00; Stop 09/16/18 at 16:57; Status DC Clonazepam (KlonoPIN) 0.25 mg PRN Q8HRS PRN PO ANXIETY / AGITATION Last administered on 09/23/18 12:34; Start 09/14/18 at 22:00 Cephalexin HCl (Keflex) 500 mg Q8HRS PO Last administered on 09/17/18 05:34; Start 09/15/18 at 06:00; Stop 09/17/18 at 12:47; Status DC Lactobacillus Rhamnosus (Culturelle) 1 cap BID PO Last administered on 09/27/18at 20:25; Start 09/15/18 at 09:00 Diltiazem HCl (Cardizem 24hr Cd) 120 mg DAILY PO Last administered on 09/27/18at 07:59; Start 09/17/18 at 09:00 Clonazepam (KlonoPIN) 0.25 mg 1900 PO Last administered on 09/19/18 19:22; Start 09/16/18 at 20:00; Stop 09/20/18 at 16:15; Status DC Ceftriaxone Sodium (Rocephin Im) 1 gm DAILY IM ; Start 09/18/18 at 09:00; Stop 09/19/18 at 07:13; Status DC Mirtazapine (Remeron) 7.5 mg QHS PO Last administered on 09/18/18at 19:48; Start 09/17/18 at 21:00; Stop 09/19/18 at 16:45; Status DC Trazodone HCl (Desyrel) 50 mg QHS PO Last administered on 09/27/18 20:25; Start 09/17/18 at 21:00 Trazodone HCl (Desyrel) 50 mg PRN QHS PRN PO INSOMNIA Last administered on 09/19/18 23:03; Start 09/17/18 at 20:30 Lidocaine (Lidoderm) 1 patch DAILY TD Last administered on 09/27/18 08:02; Start 09/20/18 at 09:00 Miscellaneous (Lidoderm Patch Removal) 1 ea QHS MC Last administered on 09/26/18 21:00; Start 09/19/18 at 21:00 Mirtazapine (Remeron) 15 mg QHS PO Last administered on 09/27/18 20:25; Start 09/19/18 at 21:00 Clonazepam (KlonoPIN) 0.25 mg 2000 PO Last administered on 09/27/18 20:29; Start 09/20/18 at 20:00 Sertraline HCl (Zoloft) 50 mg DAILY PO Last administered on 09/23/18 08:00; S tart 09/21/18 at 09:00; Stop 09/23/18 at 11:00; Status DC Sertraline HCl (Zoloft) 75 mg DAILY PO Last administered on 09/27/18 08:02; Start 09/24/18 at 09:00; Stop 09/27/18 at 16:39; Status DC Sertraline HCl (Zoloft) 100 mg DAILY PO ; Start 09/28/18 at 09:00 Active Scripts Active Reported Cephalexin 500 Mg Capsule 500 Mg PO Q8HRS 7 Days Meloxicam 15 Mg Tablet 15 Mg PO DAILY Mucinex (Guaifenesin) 600 Mg Tablet.er 600 Mg PO BID Furosemide 20 Mg Tablet 20 Mg PO DAILY Flecainide Acetate 50 Mg Tablet 50 Mg PO BIDWMEALS Diltiazem 24Hr ER (Diltiazem HCl) 180 Mg Tab.er.24h 180 Mg PO DAILY Clonazepam 0.5 Mg Tablet 0.25 Mg PO PRN Q8HRS PRN Clonazepam 0.5 Mg Tablet 0.25 Mg PO DAILY19(DAILY @1900) Voltaren (Diclofenac Sodium) 100 Gm Gel..gram. 1 Cindy TP Q6HRS Nystatin 15 Gm Powder 1 [place] TP BID Spiriva (Tiotropium [place]) 18 Mcg Cap.w.dev 1 Cap IH DAILY Klor-Con M20 (Potassium Chloride) 20 Meq Tab.er.prt 20 Meq PO DAILY Melatonin 3 Mg Tablet 9 Mg PO HS Losartan Potassium 50 Mg Tablet 100 Mg PO DAILY Clopidogrel (Clopidogrel Bisulfate) 75 Mg Tablet 75 Mg PO DAILY Acetaminophen 500 Mg Tablet 500 Mg PO TID I have reviewed the current psychotropics carefully including drug interactions. Risk benefit ratio favors no change other than as noted in my dictated progress note. Diagnosis: Problems: (1) Major neurocognitive disorder (2) Anxiety disorder (3) Dementia, vascular, with depression (4) Depression (5) Dementia in Alzheimer's disease with depression (6) Dementia in Alzheimer's disease with delusions (7) Impulse control disorder BRITT HERRERA MD Sep 27, 2018 23:00
--- NOTE | 2018-09-28 00:17 | PN ---
DATE: 09/26/2018 PSYCHIATRIC PROGRESS NOTE This late entry 09/26/2018 covers elements not covered in my initial note. SUBJECTIVE: I met with the patient in the evening. The patient slept 8-1/2 hours previous night. She had a good day until she was getting a shower in the late afternoon. She was then yelling for her mother and was talking that someone had sold her teeth. She did better after she received Zyprexa and we will give this routinely prior to her showers, which are a time of great stress for her. I did address this with her individually in the evening. REVIEW OF SYSTEMS: No CV, , pulmonary, eye system symptoms on review. Gait unsteady with walker. MENTAL STATUS EXAM: Oriented to herself. Situation and insight improved. Judgment generally improved. Language function intact. Attention span short. Mood and affect are improved. She is verbal, smiling as I met with her. LABORATORY DATA: Reviewed. IMPRESSION: Unchanged from initial note. PLAN: No change from initial note. BRITT HERRERA MD DR: MEREDITH/rekha JOB#: [id number] / [id number]
[2018-09-28] MEDS: ACETAMINOPHEN 500 MG TABLET PO SCH ×3 (05:19→19:49)
[2018-09-28] MEDS: IPRATRPIUM/ALBUTEROL 0.5/2.5MG 3 ML NEBU. NEB SCH ×4 (05:25→20:38)
[2018-09-28] MEDS: BUDESONIDE 0.5 MG/2 ML NEBU NEB SCH ×2 (05:25→20:38)
[2018-09-28 06:17] VITALS: BP 113/87
[2018-09-28] MEDS: CLOPIDOGREL BISULFATE 75 MG TABLET PO SCH (07:57)
[2018-09-28] MEDS: LOSARTAN 50 MG TABLET. PO SCH (07:57)
[2018-09-28] MEDS: FUROSEMIDE 20 MG TABLET PO SCH (07:57)
[2018-09-28] MEDS: POTASSIUM CHLORIDE 20 MEQ TABLET.ER. PO SCH (07:57)
[2018-09-28] MEDS: LACTOBACILLUS RHAMNOSUS GG 1 CAPSULE. PO SCH ×2 (07:58→19:49)
[2018-09-28] MEDS: MELOXICAM 15 MG TABLET. PO SCH (07:58)
[2018-09-28] MEDS: FLECAINIDE 50 MG TABLET. PO SCH ×2 (07:58→19:49)
[2018-09-28] MEDS: LIDOCAINE (700MG/PATCH) PATCH. TD SCH (07:59)
[2018-09-28] MEDS: NYSTATIN TOPICAL POWDER 15GM BOTTLE. TP SCH ×2 (08:00→19:49)
[2018-09-28] MEDS ORDERED: SERTRALINE 100 MG TABLET. PO SCH (09:00)
[2018-09-28] MEDS: MAGNESIUM HYDROXIDE 2,400 MG/30 ML ORAL.SUSP. PO PRN (09:21)
[2018-09-28 16:02] VITALS: BP 110/73
[2018-09-28] MEDS: clonazePAM 0.5 MG TABLET PO SCH (16:53)
[2018-09-28] MEDS: MELATONIN 3 MG TABLET PO SCH (19:48)
[2018-09-28] MEDS: MIRTAZAPINE 15 MG TABLET PO SCH (19:49)
[2018-09-28] MEDS: traZODone 50 MG TABLET. PO SCH (19:49)
[2018-09-28] MEDS: PATCH REMOVAL. MC SCH (21:00)
[2018-09-28 21:01] LABS: BASO # 0.1 x10^3/uL (0.0-0.2); BASO % 1 % (0-3); EOS # 0.1 x10^3/uL (0.0-0.7); EOS % 2 % (0-3); HEMATOCRIT 34.5 % (36.0-47.0); HEMOGLOBIN 11.3 g/dL (12.0-15.5); LYMPH % 14 % (24-48); MEAN CORPUSCULAR HEMOGLOBIN 31 pg (25-35); MEAN CORPUSCULAR HGB CONC 33 g/dL (31-37); MEAN CORPUSCULAR VOLUME 93 fL (79-100); MONO # 0.6 x10^3/uL (0.0-1.1); MONO % 9 % (0-9); NEUT % 74 % (31-73); PLATELET COUNT 255 x10^3/uL (140-400); RED CELL DISTRIBUTION WIDTH 16.6 % (11.5-14.5); WHITE BLOOD COUNT 6.7 x10^3/uL (4.0-11.0)
[2018-09-28 21:20] LABS: ALBUMIN 2.9 g/dL (3.4-5.0); ALBUMIN/GLOBULIN RATIO 0.8 (1.0-1.7); CREATININE 0.8 mg/dL (0.6-1.0); GFR 68.7; POTASSIUM 4.5 mmol/L (3.5-5.1); TOTAL BILIRUBIN 0.4 mg/dL (0.2-1.0); TOTAL PROTEIN 6.5 g/dL (6.4-8.2)
--- NOTE | 2018-09-28 22:19 | PDOC ---
Exam Note: Obdulio Note: Please also refer to the separate dictated note~for this date of service dictated separately.~Patient seen individually. Discussed the patient with Nursing staff reviewed the chart.~Reviewed interim history and current functioning. Reviewed vital signs,~Labs/ Radiology~and current medications noted below. Continue current treatment with the changes noted in the dictated addendum note Assessment: Vital Signs: Vital Signs Date Time Temp Pulse Resp B/P (MAP) Pulse Ox O2 Delivery O2 Flow Rate FiO2 09/28/18 19:49 78 110/73 09/28/18 17:03 94 Nasal Cannula 2.0 09/28/18 16:02 98.0 20 I&O Intake and Output 09/28/18 07:00 Intake Total 960 ml Balance 960 ml Intake Oral 960 ml # Bowel Movements 1 Labs: Laboratory Tests Test 09/28/18 20:45 White Blood Count 6.7 x10^3/uL (4.0-11.0) Red Blood Count 3.70 x10^6/uL (3.50-5.40) Hemoglobin 11.3 g/dL (12.0-15.5) L Hematocrit 34.5 % (36.0-47.0) L Mean Corpuscular Volume 93 fL (79-100) Mean Corpuscular Hemoglobin 31 pg (25-35) Mean Corpuscular Hemoglobin Concent 33 g/dL (31-37) Red Cell Distribution Width 16.6 % (11.5-14.5) H Platelet Count 255 x10^3/uL (140-400) Neutrophils (%) (Auto) 74 % (31-73) H Lymphocytes (%) (Auto) 14 % (24-48) L Monocytes (%) (Auto) 9 % (0-9) Eosinophils (%) (Auto) 2 % (0-3) Basophils (%) (Auto) 1 % (0-3) Neutrophils # (Auto) 5.0 x10^3uL (1.8-7.7) Lymphocytes # (Auto) 1.0 x10^3/uL (1.0-4.8) Monocytes # (Auto) 0.6 x10^3/uL (0.0-1.1) Eosinophils # (Auto) 0.1 x10^3/uL (0.0-0.7) Basophils # (Auto) 0.1 x10^3/uL (0.0-0.2) Sodium Level 146 mmol/L (136-145) H Potassium Level 4.5 mmol/L (3.5-5.1) Chloride Level 110 mmol/L (98-107) H Carbon Dioxide Level 30 mmol/L (21-32) Anion Gap 6 (6-14) Blood Urea Nitrogen 19 mg/dL (7-20) Creatinine 0.8 mg/dL (0.6-1.0) Estimated GFR (Cockcroft-Gault) 68.7 BUN/Creatinine Ratio 24 (6-20) H Glucose Level 108 mg/dL (70-99) H Calcium Level 9.0 mg/dL (8.5-10.1) Total Bilirubin 0.4 mg/dL (0.2-1.0) Aspartate Amino Transferase (AST) 11 U/L (15-37) L Alanine Aminotransferase (ALT) 17 U/L (14-59) Alkaline Phosphatase 79 U/L (46-116) Total Protein 6.5 g/dL (6.4-8.2) Albumin 2.9 g/dL (3.4-5.0) L Albumin/Globulin Ratio 0.8 (1.0-1.7) L Current Medications: Meds: Current Medications Acetaminophen (Tylenol) 650 mg PRN Q6HRS PRN PO PAIN / TEMP Last administered on 09/21/18at 02:15; Start 09/14/18 at 04:00 Multi-Ingredient Ointment (Analgesic Norman) 1 cindy PRN QID PRN TP MUSCLE PAIN; Start 09/14/18 at 04:00 Al Hydroxide/Mg Hydroxide (Mylanta Plus Xs) 15 ml PRN AFTMEALHC PRN PO DYSPEPSIA; Start 09/14/18 at 04:00 Magnesium Hydroxide (Milk Of Magnesia) 2,400 mg PRN QHS PRN PO CONSTIPATION Last administered on 09/28/18at 09:21; Start 09/14/18 at 04:00 Vitamin D (Vitamin D3) 2,000 unit DAILY PO ; Start 09/14/18 at 09:00; Stop 09/14/18 at 22:02; Status DC Clopidogrel Bisulfate (Plavix) 75 mg DAILY PO Last administered on 09/28/18at 07:57; Start 09/14/18 at 09:00 Diclofenac Sodium (Voltaren) 1 cindy PRN Q6HRS PRN TP PAIN; Start 09/14/18 at 05:30 Nystatin (Nystop) 1 cindy BID TP Last administered on 09/28/18at 19:49; Start 09/14/18 at 09:00 Potassium Chloride (Klor-Con) 20 meq DAILYWBKFT PO Last administered on 09/28/18at 07:57; Start 09/14/18 at 08:00 Tramadol HCl (Ultram) 25 mg PRN Q4HRS PRN PO PAIN; Start 09/14/18 at 05:30; Stop 09/14/18 at 21:20; Status DC Acetaminophen (Tylenol) 500 mg TID PO Last administered on 09/28/18 19:49; Start 09/14/18 at 09:00 Carvedilol (Coreg) 3.125 mg BIDWMEALS PO Last administered on 09/14/18at 17:00; Start 09/14/18 at 08:00; Stop 09/14/18 at 18:39; Status DC Clonazepam (KlonoPIN) 1 mg BID PO Last administered on 09/14/18at 10:01; Start 09/14/18 at 09:00; Stop 09/14/18 at 17:35; Status DC Duloxetine HCl (Cymbalta) 30 mg DAILY PO ; Start 09/14/18 at 09:00; Stop 09/14/18 at 22:04; Status DC Losartan Potassium (Cozaar) 100 mg DAILY PO Last administered on 09/28/18at 07:57; Start 09/14/18 at 09:00 Melatonin 9 mg HS PO ; Start 09/14/18 at 21:00; Stop 09/14/18 at 21:00; Status DC Multivitamins/ Calcium (Thera-M Plus) 1 tab DAILY PO ; Start 09/14/18 at 09:00; Stop 09/14/18 at 22:02; Status DC Ondansetron HCl (Zofran Odt) 4 mg Q6HRS PO ; Start 09/14/18 at 06:00; Stop 09/14/18 at 06:23; Status DC Pregabalin (Lyrica) 150 mg BID PO Last administered on 09/14/18at 19:50; Start 09/14/18 at 09:00; Stop 09/14/18 at 22:02; Status DC Quetiapine Fumarate (SEROquel) 12.5 mg HS PO Last administered on 09/14/18at 19:51; Start 09/14/18 at 21:00; Stop 09/14/18 at 22:04; Status DC Sennosides (Senna) 8.6 mg PRN DAILY PRN PO CONSTIPATION; Start 09/14/18 at 05:30; Stop 09/14/18 at 18:39; Status DC Non-Formulary Medication (Tiotropium [place] (Spiriva)) 1 cap DAILY IH ; Start 09/14/18 at 09:00; Stop 09/14/18 at 09:00; Status DC Ondansetron HCl (Zofran Odt) 4 mg PRN Q6HRS PRN PO nausea; Start 09/14/18 at 06:30; Stop 09/14/18 at 22:02; Status DC Albuterol/ Ipratropium (Duoneb) 3 ml RTQID NEB Last administered on 09/28/18at 16:48; Start 09/14/18 at 08:00 Clonazepam (KlonoPIN) 1 mg DAILY PO ; Start 09/15/18 at 09:00; Stop 09/15/18 at 09:00; Status DC Clonazepam (KlonoPIN) 0.5 mg BID PO ; Start 09/18/18 at 09:00; Stop 09/18/18 at 09:00; Status DC Clonazepam (KlonoPIN) 0.5 mg QHS PO ; Start 09/14/18 at 21:00; Stop 09/14/18 at 21:00; Status DC Olanzapine (ZyPREXA ZYDIS) 2.5 mg PRN Q2HR PRN PO ANXIETY / AGITATION Last administered on 09/24/18at 17:02; Start 09/14/18 at 17:45 Melatonin 9 mg HS PO Last administered on 09/28/18at 19:48; Start 09/14/18 at 21:00 Albuterol Sulfate (Ventolin) 2.5 mg RTQID NEB ; Start 09/15/18 at 08:00; Stop 09/15/18 at 13:58; Status DC Budesonide (Pulmicort) 0.5 mg RTBID NEB Last administered on 09/28/18 05:25; Start 09/15/18 at 08:00 Albuterol Sulfate (Ventolin) 2.5 mg PRN Q4HRS PRN NEB SHORTNESS OF BREATH; Start 09/14/18 at 21:00 Furosemide (Lasix) 20 mg DAILY PO Last administered on 09/28/18 07:57; Start 09/15/18 at 09:00 Guaifenesin (Mucinex Er) 600 mg BID PO Last administered on 09/28/18 19:48; Start 09/15/18 at 09:00 Diltiazem HCl (Cardizem) 30 mg QID PO Last administered on 09/16/18 13:12; Start 09/15/18 at 09:00; Stop 09/16/18 at 16:23; Status DC Flecainide Acetate (Tambocor) 50 mg Q12HR PO Last administered on 09/28/18 19:49; Start 09/15/18 at 09:00 Meloxicam (Mobic) 15 mg DAILY PO Last administered on 09/28/18 07:58; Start 09/15/18 at 09:00 Clonazepam (KlonoPIN) 0.25 mg 1900 PO Last administered on 09/15/18 18:04; Start 09/15/18 at 19:00; Stop 09/16/18 at 16:57; Status DC Clonazepam (KlonoPIN) 0.25 mg PRN Q8HRS PRN PO ANXIETY / AGITATION Last administered on 09/23/18 12:34; Start 09/14/18 at 22:00 Cephalexin HCl (Keflex) 500 mg Q8HRS PO Last administered on 09/17/18 05:34; Start 09/15/18 at 06:00; Stop 09/17/18 at 12:47; Status DC Lactobacillus Rhamnosus (Culturelle) 1 cap BID PO Last administered on 09/28/18 19:49; Start 09/15/18 at 09:00 Diltiazem HCl (Cardizem 24hr Cd) 120 mg DAILY PO Last administered on 09/28/18 07:58; Start 09/17/18 at 09:00 Clonazepam (KlonoPIN) 0.25 mg 1900 PO Last administered on 09/19/18 19:22; Start 09/16/18 at 20:00; Stop 09/20/18 at 16:15; Status DC Ceftriaxone Sodium (Rocephin Im) 1 gm DAILY IM ; Start 09/18/18 at 09:00; Stop 09/19/18 at 07:13; Status DC Mirtazapine (Remeron) 7.5 mg QHS PO Last administered on 09/18/18 19:48; Start 09/17/18 at 21:00; Stop 09/19/18 at 16:45; Status DC Trazodone HCl (Desyrel) 50 mg QHS PO Last administered on 09/28/18 19:49; Start 09/17/18 at 21:00 Trazodone HCl (Desyrel) 50 mg PRN QHS PRN PO INSOMNIA Last administered on 09/19/18 23:03; Start 09/17/18 at 20:30 Lidocaine (Lidoderm) 1 patch DAILY TD Last administered on 09/28/18 07:59; Start 09/20/18 at 09:00 Miscellaneous (Lidoderm Patch Removal) 1 ea QHS MC Last administered on 09/28/18 21:00; Start 09/19/18 at 21:00 Mirtazapine (Remeron) 15 mg QHS PO Last administered on 09/28/18 19:49; Start 09/19/18 at 21:00 Clonazepam (KlonoPIN) 0.25 mg 2000 PO Last administered on 09/28/18 16:53; Start 09/20/18 at 20:00 Sertraline HCl (Zoloft) 50 mg DAILY PO Last administered on 09/23/18at 08:00; Start 09/21/18 at 09:00; Stop 09/23/18 at 11:00; Status DC Sertraline HCl (Zoloft) 75 mg DAILY PO Last administered on 09/27/18 08:02; Start 09/24/18 at 09:00; Stop 09/27/18 at 16:39; Status DC Sertraline HCl (Zoloft) 100 mg DAILY PO Last administered on 09/28/18 08:00; Start 09/28/18 at 09:00; Stop 09/28/18 at 18:11; Status DC Sertraline HCl (Zoloft) 100 mg QHS PO ; Start 09/29/18 at 21:00 Active Scripts Active Reported Cephalexin 500 Mg Capsule 500 Mg PO Q8HRS 7 Days Meloxicam 15 Mg Tablet 15 Mg PO DAILY Mucinex (Guaifenesin) 600 Mg Tablet.er 600 Mg PO BID Furosemide 20 Mg Tablet 20 Mg PO DAILY Flecainide Acetate 50 Mg Tablet 50 Mg PO BIDWMEALS Diltiazem 24Hr ER (Diltiazem HCl) 180 Mg Tab.er.24h 180 Mg PO DAILY Clonazepam 0.5 Mg Tablet 0.25 Mg PO PRN Q8HRS PRN Clonazepam 0.5 Mg Tablet 0.25 Mg PO DAILY19(DAILY @1900) Voltaren (Diclofenac Sodium) 100 Gm Gel..gram. 1 Cindy TP Q6HRS Nystatin 15 Gm Powder 1 Cindy TP BID Spiriva (Tiotropium [place]) 18 Mcg Cap.w.dev 1 Cap IH DAILY Klor-Con M20 (Potassium Chloride) 20 Meq Tab.er.prt 20 Meq PO DAILY Melatonin 3 Mg Tablet 9 Mg PO HS Losartan Potassium 50 Mg Tablet 100 Mg PO DAILY Clopidogrel (Clopidogrel Bisulfate) 75 Mg Tablet 75 Mg PO DAILY Acetaminophen 500 Mg Tablet 500 Mg PO TID I have reviewed the current psychotropics carefully including drug interactions. Risk benefit ratio favors no change other than as noted in my dictated progress note. Diagnosis: Problems: (1) Major neurocognitive disorder (2) Anxiety disorder (3) Dementia, vascular, with depression (4) Depression (5) Dementia in Alzheimer's disease with depression (6) Dementia in Alzheimer's disease with delusions (7) Impulse control disorder BRITT HERRERA MD Sep 28, 2018 22:19
[2018-09-28 22:26] LABS: BACTERIA,URINE FEW /HPF (0-FEW); BILIRUBIN,URINE NEG (NEG); CLARITY,URINE HAZY; COLOR,URINE YELLOW; GLUCOSE,URINE NEG (NEG); NITRITE,URINE NEG (NEG); RBC,URINE 0 /HPF (0-2); SQUAMOUS EPITHELIAL CELL,UR OCC /LPF; UROBILINOGEN,URINE 0.2 mg/dL (0.2 mg/dL)
[2018-09-29] MEDS: clonazePAM 0.5 MG TABLET PO PRN (04:15)
[2018-09-29] MEDS: BUDESONIDE 0.5 MG/2 ML NEBU NEB SCH ×2 (05:58→21:06)
[2018-09-29] MEDS: IPRATRPIUM/ALBUTEROL 0.5/2.5MG 3 ML NEBU. NEB SCH ×4 (05:58→21:06)
[2018-09-29 06:35] VITALS: BP 118/50
[2018-09-29] MEDS: MELOXICAM 15 MG TABLET. PO SCH (09:27)
[2018-09-29] MEDS: FUROSEMIDE 20 MG TABLET PO SCH (09:27)
[2018-09-29] MEDS: CLOPIDOGREL BISULFATE 75 MG TABLET PO SCH (09:27)
[2018-09-29] MEDS: ACETAMINOPHEN 500 MG TABLET PO SCH ×3 (09:28→19:47)
[2018-09-29] MEDS: POTASSIUM CHLORIDE 20 MEQ TABLET.ER. PO SCH (09:28)
[2018-09-29] MEDS: FLECAINIDE 50 MG TABLET. PO SCH ×2 (09:28→19:50)
[2018-09-29] MEDS: LOSARTAN 50 MG TABLET. PO SCH (09:29)
[2018-09-29] MEDS: LACTOBACILLUS RHAMNOSUS GG 1 CAPSULE. PO SCH ×2 (09:30→19:47)
[2018-09-29] MEDS: NYSTATIN TOPICAL POWDER 15GM BOTTLE. TP SCH ×2 (09:31→19:48)
[2018-09-29] MEDS: LIDOCAINE (700MG/PATCH) PATCH. TD SCH (09:31)
[2018-09-29] MEDS: ACETAMINOPHEN 325 MG TABLET PO PRN (13:20)
[2018-09-29 15:20] VITALS: BP 116/80
--- NOTE | 2018-09-29 16:57 | PN ---
DATE: 09/27/2018 PSYCHIATRIC PROGRESS NOTE This late entry 09/27/2018 covers elements not covered in my initial note. SUBJECTIVE: I met with the patient evening of 09/27. The patient slept 8 hours previous night. She refused her breathing treatment, refused change of clothes, confused, calm, cooperative, disorganized. REVIEW OF SYSTEMS: No CV, , pulmonary, eye, ENT system symptoms on review. Gait unsteady with walker. Reliability poor. MENTAL STATUS EXAM: Oriented to herself. Insight, judgment, recent memory is impaired, remote is better. Language function intact. Attention span short. Mood and affect remain somewhat anxious, labile at times, but improved. LABORATORY DATA: Reviewed. IMPRESSION: Unchanged from initial note. PLAN: Increase Zoloft from 75 mg a day to 100 mg a day. Continue Klonopin p.r.n., melatonin 9 mg at bedtime, Zyprexa p.r.n., and Remeron 15 mg at bedtime. BRITT HERRERA MD DR: MEREDITH/rekha JOB#: [id number] / [id number]
[2018-09-29] MEDS: QUEtiapine 25 MG TABLET. PO SCH (17:30)
[2018-09-29] MEDS: MIRTAZAPINE 15 MG TABLET PO SCH (19:47)
[2018-09-29] MEDS: traZODone 50 MG TABLET. PO SCH (19:47)
[2018-09-29] MEDS: MELATONIN 3 MG TABLET PO SCH (19:47)
[2018-09-29] MEDS: PATCH REMOVAL. MC SCH (19:48)
[2018-09-29] MEDS: SERTRALINE 100 MG TABLET. PO SCH (19:49)
--- NOTE | 2018-09-29 22:42 | PDOC ---
Exam Note: Obdulio Note: Please also refer to the separate dictated note~for this date of service dictated separately.~Patient seen individually. Discussed the patient with Nursing staff reviewed the chart.~Reviewed interim history and current functioning. Reviewed vital signs,~Labs/ Radiology~and current medications noted below. Continue current treatment with the changes noted in the dictated addendum note Assessment: Vital Signs/I&O: Vital Signs Date Time Temp Pulse Resp B/P (MAP) Pulse Ox O2 Delivery O2 Flow Rate FiO2 09/29/18 19:50 84 116/80 09/29/18 15:20 98.7 20 92 09/29/18 06:35 Nasal Cannula 2.0 I & O 0 09/28/18 09/28/18 09/29/18 15:00 23:00 07:00 Intake Total 720 ml 0 ml Balance 720 ml 0 ml Current Medications: Meds: Current Medications Medications (Trade) Dose Ordered Sig/Seth Route PRN Reason Start Time Stop Time Status Last Admin Dose Admin Sertraline HCl (Zoloft) 100 mg QHS PO 09/29/18 21:00 09/29/18 19:49 Melatonin 6 mg HS PO 09/29/18 21:00 09/29/18 19:47 Quetiapine Fumarate (SEROquel) 12.5 mg 0900,1700 PO 09/29/18 17:00 09/29/18 17:30 I have reviewed the current psychotropics carefully including drug interactions. Risk benefit ratio favors no change other than as noted in my dictated progress note. Diagnosis: Problems: (1) Major neurocognitive disorder (2) Anxiety disorder (3) Dementia, vascular, with depression (4) Depression (5) Dementia in Alzheimer's disease with depression (6) Dementia in Alzheimer's disease with delusions (7) Impulse control disorder BRITT HERRERA MD Sep 29, 2018 22:42
--- NOTE | 2018-09-30 00:14 | PN ---
DATE: 09/28/2018 PSYCHIATRIC PROGRESS NOTE This late entry 09/28/2018 covers elements not covered in my initial note. SUBJECTIVE: I met with the patient in the evening. The patient slept 6 hours previous night. The patient has been quite tired, withdrawn, was in the [place], asleep and has been so for quite a while. The patient is compliant with medications. O2 sats were low and she is on O2 supplements, slept after lunch. We will change the Zoloft to the nighttime to help in case this is worsening daytime sedation. REVIEW OF SYSTEMS: Positive for tiredness, impaired ambulation. No CV, , pulmonary, eye, ENT system symptoms on review. She slept 6 hours previous night. MENTAL STATUS EXAM: Oriented to herself. Insight, judgment, recent and remote memory, attention, concentration, fund of knowledge poor consistent with her diagnosis mentioned in my initial note. PLAN: Check CBC, CMP and UA to make sure UTI or electrolyte abnormalities are not contributing to her sedation. Stop the Klonopin, reduced the melatonin, make other adjustments post-above evaluation. In the interim, continue rest unchanged. Hold any sedating psychotropics if she remains oversedated. BRITT HERRERA MD DR: MEREDITH/rekha JOB#: [id number] / [id number]
[2018-09-30] MEDS: ACETAMINOPHEN 325 MG TABLET PO PRN (01:51)
[2018-09-30 05:41] VITALS: BP 109/74
[2018-09-30] MEDS: POTASSIUM CHLORIDE 20 MEQ TABLET.ER. PO SCH (08:16)
[2018-09-30] MEDS: LOSARTAN 50 MG TABLET. PO SCH (08:18)
[2018-09-30] MEDS: FUROSEMIDE 20 MG TABLET PO SCH (08:18)
[2018-09-30] MEDS: MELOXICAM 15 MG TABLET. PO SCH (08:18)
[2018-09-30] MEDS: QUEtiapine 25 MG TABLET. PO SCH (08:19)
[2018-09-30] MEDS: NYSTATIN TOPICAL POWDER 15GM BOTTLE. TP SCH ×2 (08:19→19:51)
[2018-09-30] MEDS: CLOPIDOGREL BISULFATE 75 MG TABLET PO SCH (08:19)
[2018-09-30] MEDS: FLECAINIDE 50 MG TABLET. PO SCH ×2 (08:19→19:52)
[2018-09-30] MEDS: LIDOCAINE (700MG/PATCH) PATCH. TD SCH (08:19)
[2018-09-30] MEDS: LACTOBACILLUS RHAMNOSUS GG 1 CAPSULE. PO SCH ×2 (09:00→19:47)
[2018-09-30] MEDS: ACETAMINOPHEN 500 MG TABLET PO SCH ×3 (09:00→19:51)
[2018-09-30] MEDS: IPRATRPIUM/ALBUTEROL 0.5/2.5MG 3 ML NEBU. NEB SCH ×2 (10:17→16:24)
[2018-09-30] MEDS: BUDESONIDE 0.5 MG/2 ML NEBU NEB SCH (10:17)
[2018-09-30 15:42] VITALS: BP 98/62
[2018-09-30] MEDS ORDERED: MIRT15TA PO (16:05)
[2018-09-30] MEDS ORDERED: OLAN5TAB5 PO (16:06)
[2018-09-30] MEDS ORDERED: QUET25TA5 PO (16:07)
[2018-09-30] MEDS ORDERED: SERT100T PO (16:08)
[2018-09-30] MEDS ORDERED: TRAZ-120 PO ×2 (16:09→16:10)
[2018-09-30 16:40] LABS: BASO # 0.1 x10^3/uL (0.0-0.2); BASO % 1 % (0-3); EOS % 0 % (0-3); HEMATOCRIT 36.2 % (36.0-47.0); HEMOGLOBIN 11.7 g/dL (12.0-15.5); LYMPH # 0.7 x10^3/uL (1.0-4.8); LYMPH % 7 % (24-48); MEAN CORPUSCULAR HEMOGLOBIN 30 pg (25-35); MEAN CORPUSCULAR HGB CONC 32 g/dL (31-37); MEAN CORPUSCULAR VOLUME 94 fL (79-100); MONO # 0.7 x10^3/uL (0.0-1.1); MONO % 7 % (0-9); NEUT # 8.6 x10^3uL (1.8-7.7); NEUT % 85 % (31-73); PLATELET COUNT 299 x10^3/uL (140-400); RED BLOOD COUNT 3.86 x10^6/uL (3.50-5.40); RED CELL DISTRIBUTION WIDTH 16.6 % (11.5-14.5); WHITE BLOOD COUNT 10.1 x10^3/uL (4.0-11.0)
[2018-09-30 16:52] LABS: ALBUMIN 3.2 g/dL (3.4-5.0); ALBUMIN/GLOBULIN RATIO 0.8 (1.0-1.7); CALCIUM 9.5 mg/dL (8.5-10.1); CREATININE 0.9 mg/dL (0.6-1.0); GFR 59.9; TOTAL BILIRUBIN 0.4 mg/dL (0.2-1.0); TOTAL PROTEIN 7.4 g/dL (6.4-8.2)
[2018-09-30 16:55] LABS: POTASSIUM 5.1 mmol/L (3.5-5.1)
[2018-09-30] MEDS: PATCH REMOVAL. MC SCH (19:46)
[2018-09-30] MEDS: MELATONIN 3 MG TABLET PO SCH (19:51)
[2018-09-30] MEDS: SERTRALINE 100 MG TABLET. PO SCH (19:51)
[2018-09-30] MEDS: MIRTAZAPINE 15 MG TABLET PO SCH (19:51)
[2018-09-30 19:52] VITALS: BP 109/74
[2018-09-30] MEDS: MAGNESIUM HYDROXIDE 2,400 MG/30 ML ORAL.SUSP. PO PRN (21:27)
--- NOTE | 2018-09-30 22:51 | PDOC ---
Exam Note: Obdulio Note: Please also refer to the separate dictated note~for this date of service dictated separately.~Patient seen individually. Discussed the patient with Nursing staff reviewed the chart.~Reviewed interim history and current functioning. Reviewed vital signs,~Labs/ Radiology~and current medications noted below. Continue current treatment with the changes noted in the dictated addendum note Assessment: Vital Signs/I&O: Vital Signs Date Time Temp Pulse Resp B/P (MAP) Pulse Ox O2 Delivery O2 Flow Rate FiO2 09/30/18 20:40 95 Room Air 09/30/18 19:52 98.6 110 18 109/74 (86) 09/30/18 05:41 2.0 I & O 09/29/18 09/29/18 09/30/18 14:59 22:59 06:59 Intake Total 600 ml 240 ml 120 ml Balance 600 ml 240 ml 120 ml Labs: Laboratory Tests Test 09/30/18 16:27 09/30/18 18:48 White Blood Count 10.1 x10^3/uL (4.0-11.0) Red Blood Count 3.86 x10^6/uL (3.50-5.40) Hemoglobin 11.7 g/dL (12.0-15.5) L Hematocrit 36.2 % (36.0-47.0) Mean Corpuscular Volume 94 fL (79-100) Mean Corpuscular Hemoglobin 30 pg (25-35) Mean Corpuscular Hemoglobin Concent 32 g/dL (31-37) Red Cell Distribution Width 16.6 % (11.5-14.5) H Platelet Count 299 x10^3/uL (140-400) Neutrophils (%) (Auto) 85 % (31-73) H Lymphocytes (%) (Auto) 7 % (24-48) L Monocytes (%) (Auto) 7 % (0-9) Eosinophils (%) (Auto) 0 % (0-3) Basophils (%) (Auto) 1 % (0-3) Neutrophils # (Auto) 8.6 x10^3uL (1.8-7.7) H Lymphocytes # (Auto) 0.7 x10^3/uL (1.0-4.8) L Monocytes # (Auto) 0.7 x10^3/uL (0.0-1.1) Eosinophils # (Auto) 0.0 x10^3/uL (0.0-0.7) Basophils # (Auto) 0.1 x10^3/uL (0.0-0.2) Sodium Level 142 mmol/L (136-145) Potassium Level 5.1 mmol/L (3.5-5.1) Chloride Level 106 mmol/L (98-107) Carbon Dioxide Level 30 mmol/L (21-32) Anion Gap 6 (6-14) Blood Urea Nitrogen 25 mg/dL (7-20) H Creatinine 0.9 mg/dL (0.6-1.0) Estimated GFR (Cockcroft-Gault) 59.9 BUN/Creatinine Ratio 28 (6-20) H Glucose Level 126 mg/dL (70-99) H Calcium Level 9.5 mg/dL (8.5-10.1) Total Bilirubin 0.4 mg/dL (0.2-1.0) Aspartate Amino Transferase (AST) 13 U/L (15-37) L Alanine Aminotransferase (ALT) 17 U/L (14-59) Alkaline Phosphatase 94 U/L (46-116) Total Protein 7.4 g/dL (6.4-8.2) Albumin 3.2 g/dL (3.4-5.0) L Albumin/Globulin Ratio 0.8 (1.0-1.7) L Lactic Acid Level 1.7 mmol/L (0.4-2.0) Current Medications: I have reviewed the current psychotropics carefully including drug interactions. Risk benefit ratio favors no change other than as noted in my dictated progress note. Diagnosis: Problems: (1) Major neurocognitive disorder (2) Anxiety disorder (3) Dementia, vascular, with depression (4) Depression (5) Dementia in Alzheimer's disease with depression (6) Dementia in Alzheimer's disease with delusions (7) Impulse control disorder BRITT HERRERA MD Sep 30, 2018 22:51
[2018-10-01] MEDS: IPRATRPIUM/ALBUTEROL 0.5/2.5MG 3 ML NEBU. NEB SCH ×5 (05:24→20:05)
[2018-10-01 05:44] VITALS: BP 118/78
[2018-10-01] MEDS: QUEtiapine 25 MG TABLET. PO SCH ×2 (08:22→08:24)
[2018-10-01] MEDS: CLOPIDOGREL BISULFATE 75 MG TABLET PO SCH (08:23)
[2018-10-01] MEDS: FLECAINIDE 50 MG TABLET. PO SCH ×2 (08:23→20:16)
[2018-10-01] MEDS: NYSTATIN TOPICAL POWDER 15GM BOTTLE. TP SCH ×2 (08:24→21:00)
[2018-10-01] MEDS: LIDOCAINE (700MG/PATCH) PATCH. TD SCH (08:24)
[2018-10-01] MEDS: LACTOBACILLUS RHAMNOSUS GG 1 CAPSULE. PO SCH ×2 (09:00→20:12)
[2018-10-01] MEDS: BUDESONIDE 0.5 MG/2 ML NEBU NEB SCH ×2 (10:17→20:05)
[2018-10-01 10:32] VITALS: BP 137/85
[2018-10-01 10:55] LABS: BASO # 0.1 x10^3/uL (0.0-0.2); BASO % 1 % (0-3); EOS % 0 % (0-3); HEMATOCRIT 35.1 % (36.0-47.0); HEMOGLOBIN 11.3 g/dL (12.0-15.5); LYMPH # 1.1 x10^3/uL (1.0-4.8); LYMPH % 11 % (24-48); MEAN CORPUSCULAR HEMOGLOBIN 30 pg (25-35); MEAN CORPUSCULAR HGB CONC 32 g/dL (31-37); MEAN CORPUSCULAR VOLUME 93 fL (79-100); MONO # 0.9 x10^3/uL (0.0-1.1); MONO % 10 % (0-9); NEUT # 7.8 x10^3uL (1.8-7.7); NEUT % 78 % (31-73); PLATELET COUNT 289 x10^3/uL (140-400); RED BLOOD COUNT 3.76 x10^6/uL (3.50-5.40); RED CELL DISTRIBUTION WIDTH 16.5 % (11.5-14.5)
[2018-10-01 11:16] LABS: CALCIUM 9.3 mg/dL (8.5-10.1); CREATININE 0.8 mg/dL (0.6-1.0); GFR 68.7; POTASSIUM 4.7 mmol/L (3.5-5.1)
[2018-10-01] MEDS ORDERED: predniSONE 20 MG TABLET PO ONE (11:30)
--- NOTE | 2018-10-01 11:43 | PDOC ---
SUBJECTIVE: CC: weakness C/O diffuse joint pain OBJECTIVE: BP: 137 mmHg Vital Signs/I&O: Vital Signs Date Time Temp Pulse Resp B/P (MAP) Pulse Ox O2 Delivery O2 Flow Rate FiO2 10/01/18 10:32 97.9 112 137/85 (102) 97 Nasal Cannula 2.0 10/01/18 05:44 22 I & O0 09/30/18 09/30/18 10/01/18 15:00 23:00 07:00 Intake Total 1080 ml 240 ml 240 ml Balance 1080 ml 240 ml 240 ml Labs: Laboratory Tests Test 09/30/18 16:27 09/30/18 18:48 10/01/18 10:48 White Blood Count 10.1 x10^3/uL (4.0-11.0) 10.0 x10^3/uL (4.0-11.0) Red Blood Count 3.86 x10^6/uL (3.50-5.40) 3.76 x10^6/uL (3.50-5.40) Hemoglobin 11.7 g/dL (12.0-15.5) L 11.3 g/dL (12.0-15.5) L Hematocrit 36.2 % (36.0-47.0) 35.1 % (36.0-47.0) L Mean Corpuscular Volume 94 fL (79-100) 93 fL (79-100) Mean Corpuscular Hemoglobin 30 pg (25-35) 30 pg (25-35) Mean Corpuscular Hemoglobin Concent 32 g/dL (31-37) 32 g/dL (31-37) Red Cell Distribution Width 16.6 % (11.5-14.5) H 16.5 % (11.5-14.5) H Platelet Count 299 x10^3/uL (140-400) 289 x10^3/uL (140-400) Neutrophils (%) (Auto) 85 % (31-73) H 78 % (31-73) H Lymphocytes (%) (Auto) 7 % (24-48) L 11 % (24-48) L Monocytes (%) (Auto) 7 % (0-9) 10 % (0-9) H Eosinophils (%) (Auto) 0 % (0-3) 0 % (0-3) Basophils (%) (Auto) 1 % (0-3) 1 % (0-3) Neutrophils # (Auto) 8.6 x10^3uL (1.8-7.7) H 7.8 x10^3uL (1.8-7.7) H Lymphocytes # (Auto) 0.7 x10^3/uL (1.0-4.8) L 1.1 x10^3/uL (1.0-4.8) Monocytes # (Auto) 0.7 x10^3/uL (0.0-1.1) 0.9 x10^3/uL (0.0-1.1) Eosinophils # (Auto) 0.0 x10^3/uL (0.0-0.7) 0.0 x10^3/uL (0.0-0.7) Basophils # (Auto) 0.1 x10^3/uL (0.0-0.2) 0.1 x10^3/uL (0.0-0.2) Sodium Level 142 mmol/L (136-145) Potassium Level 5.1 mmol/L (3.5-5.1) Chloride Level 106 mmol/L (98-107) Carbon Dioxide Level 30 mmol/L (21-32) Anion Gap 6 (6-14) Blood Urea Nitrogen 25 mg/dL (7-20) H Creatinine 0.9 mg/dL (0.6-1.0) Estimated GFR (Cockcroft-Gault) 59.9 BUN/Creatinine Ratio 28 (6-20) H Glucose Level 126 mg/dL (70-99) H Calcium Level 9.5 mg/dL (8.5-10.1) Total Bilirubin 0.4 mg/dL (0.2-1.0) Aspartate Amino Transferase (AST) 13 U/L (15-37) L Alanine Aminotransferase (ALT) 17 U/L (14-59) Alkaline Phosphatase 94 U/L (46-116) Total Protein 7.4 g/dL (6.4-8.2) Albumin 3.2 g/dL (3.4-5.0) L Albumin/Globulin Ratio 0.8 (1.0-1.7) L Lactic Acid Level 1.7 mmol/L (0.4-2.0) Physical Exam: HEENT:PERRLA Neck: Supple Lungs: Min wheezing, Severe Kyphoscoliosis CV RRR Abdomen Soft non tender Ext No edema neuro Alert. ASSESSMENT: Dementia with Behavioural issues Hypertension by history Hypotension, BP yesterday: 90 mmHg systolic Currently normotensive since BP meds were held COPD, oxygen dependent Severe Kyphoscoliosis, with restrictive lung disease Osteoporosis Degenerative Arthritis, symptomatic PLAN: Recommend: Stop Losartan Stop Diltiazem Stop Lasix Stop Potassium Stop Deseryl Empiric Prednisone, 60 mg One time dose. We shall follow closely. Dr. Reilly returns tomorrow Thank you. SHERLYN SEWELL MD Oct 01, 2018 11:43
[2018-10-01] MEDS: ACETAMINOPHEN 500 MG TABLET PO SCH ×3 (12:18→20:12)
[2018-10-01 15:29] VITALS: BP 139/90
[2018-10-01] MEDS: SERTRALINE 100 MG TABLET. PO SCH (20:12)
[2018-10-01] MEDS: MELATONIN 3 MG TABLET PO SCH (20:12)
[2018-10-01] MEDS: MIRTAZAPINE 15 MG TABLET PO SCH (20:12)
[2018-10-01] MEDS: PATCH REMOVAL. MC SCH (21:00)
--- NOTE | 2018-10-01 22:02 | PN ---
DATE: 09/29/2018 PSYCHIATRIC PROGRESS NOTE This late entry 09/29/2018 covers elements not covered in my initial note. SUBJECTIVE: I met with the patient in the evening. The patient slept 7-1/2 hours previous night. Appetite 70%. She was somewhat drowsy at previous night. During the day on 09/29/2018, resistive with medication, took her meds in Ensure. Reviewed her past history of bipolar disorder, treated on Depakote, but became over sedated on this. This was shared by Vaishali, her daughter. REVIEW OF SYSTEMS: No CV, , pulmonary, eye system symptoms on review. Gait unsteady, in wheelchair. MENTAL STATUS EXAM: Oriented to herself and situation. Speech has some latency, coherent. Abstraction fair, computation impaired, language function intact, attention span short. Mood and affect somewhat withdrawn. LABORATORY DATA: Reviewed. IMPRESSION: Unchanged from initial note. PLAN: No change from initial note. We have reduced melatonin from 9 mg at bedtime down to 6 mg at bedtime. Rest unchanged. MAN Adilia HERRERA MD DR: MEREDITH/rekha JOB#: [id number] / [id number]
--- NOTE | 2018-10-01 22:17 | PDOC ---
Exam Note: Obdulio Note: Please also refer to the separate dictated note~for this date of service dictated separately.~Patient seen individually. Discussed the patient with Nursing staff reviewed the chart.~Reviewed interim history and current functioning. Reviewed vital signs,~Labs/ Radiology~and current medications noted below. Continue current treatment with the changes noted in the dictated addendum note Assessment: Vital Signs/I&O: Vital Signs Date Time Temp Pulse Resp B/P (MAP) Pulse Ox O2 Delivery O2 Flow Rate FiO2 10/01/18 20:16 100 139/90 10/01/18 20:10 97 Nasal Cannula 2.0 10/01/18 15:29 97.6 18 I & O 09/30/18 09/30/18 10/01/18 15:00 23:00 07:00 Intake Total 1080 ml 240 ml 240 ml Balance 1080 ml 240 ml 240 ml Labs: Laboratory Tests Test 10/01/18 10:48 White Blood Count 10.0 x10^3/uL (4.0-11.0) Red Blood Count 3.76 x10^6/uL (3.50-5.40) Hemoglobin 11.3 g/dL (12.0-15.5) L Hematocrit 35.1 % (36.0-47.0) L Mean Corpuscular Volume 93 fL (79-100) Mean Corpuscular Hemoglobin 30 pg (25-35) Mean Corpuscular Hemoglobin Concent 32 g/dL (31-37) Red Cell Distribution Width 16.5 % (11.5-14.5) H Platelet Count 289 x10^3/uL (140-400) Neutrophils (%) (Auto) 78 % (31-73) H Lymphocytes (%) (Auto) 11 % (24-48) L Monocytes (%) (Auto) 10 % (0-9) H Eosinophils (%) (Auto) 0 % (0-3) Basophils (%) (Auto) 1 % (0-3) Neutrophils # (Auto) 7.8 x10^3uL (1.8-7.7) H Lymphocytes # (Auto) 1.1 x10^3/uL (1.0-4.8) Monocytes # (Auto) 0.9 x10^3/uL (0.0-1.1) Eosinophils # (Auto) 0.0 x10^3/uL (0.0-0.7) Basophils # (Auto) 0.1 x10^3/uL (0.0-0.2) Sodium Level 143 mmol/L (136-145) Potassium Level 4.7 mmol/L (3.5-5.1) Chloride Level 107 mmol/L (98-107) Carbon Dioxide Level 31 mmol/L (21-32) Anion Gap 5 (6-14) L Blood Urea Nitrogen 23 mg/dL (7-20) H Creatinine 0.8 mg/dL (0.6-1.0) Estimated GFR (Cockcroft-Gault) 68.7 Glucose Level 112 mg/dL (70-99) H Calcium Level 9.3 mg/dL (8.5-10.1) Current Medications: Meds: Current Medications Medications (Trade) Dose Ordered Sig/Seth Route PRN Reason Start Time Stop Time Status Last Admin Dose Admin Prednisone (Prednisone) 60 mg 1X ONCE PO 10/01/18 11:30 10/01/18 11:31 DC 10/01/18 12:18 I have reviewed the current psychotropics carefully including drug interactions. Risk benefit ratio favors no change other than as noted in my dictated progress note. Diagnosis: Problems: (1) Major neurocognitive disorder (2) Anxiety disorder (3) Dementia, vascular, with depression (4) Depression (5) Dementia in Alzheimer's disease with depression (6) Dementia in Alzheimer's disease with delusions (7) Impulse control disorder BRITT HERRERA MD Oct 01, 2018 22:17
[2018-10-02] MEDS: IPRATRPIUM/ALBUTEROL 0.5/2.5MG 3 ML NEBU. NEB SCH ×5 (05:16→20:15)
[2018-10-02] MEDS: BUDESONIDE 0.5 MG/2 ML NEBU NEB SCH ×2 (05:18→20:15)
[2018-10-02 06:04] VITALS: BP 118/71
[2018-10-02] MEDS: LACTOBACILLUS RHAMNOSUS GG 1 CAPSULE. PO SCH ×2 (08:24→20:44)
[2018-10-02] MEDS: ACETAMINOPHEN 500 MG TABLET PO SCH ×3 (08:25→20:44)
[2018-10-02] MEDS: FLECAINIDE 50 MG TABLET. PO SCH ×2 (08:25→20:47)
[2018-10-02] MEDS: CLOPIDOGREL BISULFATE 75 MG TABLET PO SCH (08:25)
[2018-10-02] MEDS: LIDOCAINE (700MG/PATCH) PATCH. TD SCH (08:26)
[2018-10-02] MEDS: NYSTATIN TOPICAL POWDER 15GM BOTTLE. TP SCH ×2 (08:26→20:45)
[2018-10-02 16:02] VITALS: BP 149/78
[2018-10-02] MEDS: PATCH REMOVAL. MC SCH (20:44)
[2018-10-02] MEDS: MELATONIN 3 MG TABLET PO SCH (20:44)
[2018-10-02] MEDS: SERTRALINE 100 MG TABLET. PO SCH (20:44)
[2018-10-02] MEDS: MIRTAZAPINE 15 MG TABLET PO SCH (20:44)
[2018-10-02] MEDS: OLANZapine 2.5 MG TABLET PO SCH (20:48)
--- NOTE | 2018-10-02 22:31 | PDOC ---
Exam Note: Obdulio Note: Please also refer to the separate dictated note~for this date of service dictated separately.~Patient seen individually. Discussed the patient with Nursing staff reviewed the chart.~Reviewed interim history and current functioning. Reviewed vital signs,~Labs/ Radiology~and current medications noted below. Continue current treatment with the changes noted in the dictated addendum note Assessment: Vital Signs/I&O: Vital Signs Date Time Temp Pulse Resp B/P (MAP) Pulse Ox O2 Delivery O2 Flow Rate FiO2 10/02/18 20:47 78 149/78 10/02/18 20:18 Nasal Cannula 2.0 10/02/18 16:02 98.2 16 97 I & O 0 10/01/18 10/01/18 10/02/18 14:59 22:59 06:59 Intake Total 240 ml 100 ml Balance 240 ml 100 ml Current Medications: Meds: Current Medications Medications (Trade) Dose Ordered Sig/Seth Route PRN Reason Start Time Stop Time Status Last Admin Dose Admin Olanzapine (ZyPREXA) 2.5 mg QHS PO 10/02/18 21:00 10/02/18 20:48 I have reviewed the current psychotropics carefully including drug interactions. Risk benefit ratio favors no change other than as noted in my dictated progress note. Diagnosis: Problems: (1) Major neurocognitive disorder (2) Anxiety disorder (3) Dementia, vascular, with depression (4) Depression (5) Dementia in Alzheimer's disease with depression (6) Dementia in Alzheimer's disease with delusions (7) Impulse control disorder BRITT HERRERA MD Oct 02, 2018 22:31
--- NOTE | 2018-10-03 00:48 | PN ---
DATE: 10/02/2018 PSYCHIATRIC PROGRESS NOTE This late entry 10/01/2018 covers elements not covered in my initial note. SUBJECTIVE: I met with the patient in the evening. The patient slept 3-1/4 hours previous night. She has been quite sedated, withdrawn afternoon of 10/01/2018 after she received the morning Seroquel 12.5 mg. We will go ahead and stop the Seroquel since nursing staff feels she gets overly sedated with it. REVIEW OF SYSTEMS: Positive for tiredness. No CV, , pulmonary, eye, ENT system symptoms on review. Reliability poor. MENTAL STATUS EXAM: Oriented to herself. Insight, judgment, recent and remote memory, attention, concentration, fund of knowledge poor, consistent with her diagnosis mentioned in my initial note. PLAN: No change from my initial note, but stop the Seroquel as noted and reassess. MAN Adilia HERRERA MD DR: MEREDITH/rekha JOB#: [id number] / [id number]
[2018-10-03] MEDS: ACETAMINOPHEN 325 MG TABLET PO PRN (02:36)
--- NOTE | 2018-10-03 03:35 | PN ---
DATE: 09/30/2018 PSYCHIATRIC PROGRESS NOTE This late entry, 09/30/2018, covers elements not covered in my initial note. SUBJECTIVE: I met with the patient in the evening. The patient slept 4-1/2 hours previous night. Her blood pressure is somewhat low and Dr. Selby has adjusted some of her medications, stopping the Lasix, losartan, and trazodone amongst others. We will monitor this. Her UA has reflex to culture, result awaited. She received milk of mag for constipation. REVIEW OF SYSTEMS: Positive for some tiredness. No CV, , pulmonary, eye, ENT system symptoms on review. Reliability poor. MENTAL STATUS EXAM: Oriented to herself. Insight, judgment, recent and remote memory, attention, concentration, fund of knowledge poor, consistent with her diagnosis mentioned in my initial note. PLAN: No change from initial note. MAN Adilia HERRERA MD DR: MEREDITH/rekha JOB#: [id number] / [id number]
[2018-10-03] MEDS: IPRATRPIUM/ALBUTEROL 0.5/2.5MG 3 ML NEBU. NEB SCH ×4 (05:00→20:25)
[2018-10-03 05:49] VITALS: BP 155/76
[2018-10-03] MEDS: NYSTATIN TOPICAL POWDER 15GM BOTTLE. TP SCH ×2 (09:00→20:23)
[2018-10-03] MEDS: LACTOBACILLUS RHAMNOSUS GG 1 CAPSULE. PO SCH ×2 (09:14→20:22)
[2018-10-03] MEDS: CLOPIDOGREL BISULFATE 75 MG TABLET PO SCH (09:14)
[2018-10-03] MEDS: ACETAMINOPHEN 500 MG TABLET PO SCH ×3 (09:14→20:22)
[2018-10-03] MEDS: LIDOCAINE (700MG/PATCH) PATCH. TD SCH (09:17)
[2018-10-03] MEDS: FLECAINIDE 50 MG TABLET. PO SCH ×2 (09:17→20:24)
[2018-10-03] MEDS: BUDESONIDE 0.5 MG/2 ML NEBU NEB SCH ×2 (09:45→20:25)
--- NOTE | 2018-10-03 10:47 | RAD ---
CT Head without contrast 10/03/2018 8:00 AM Indication: Fall, head trauma. Comparison: None Findings: Study is limited by motion artifact. No intracranial hemorrhage is seen. No evidence of acute territorial infarct is seen. Note that CT is limited in sensitivity for acute ischemia. Age-related atrophic changes are noted. There is patchy periventricular and deep white matter hypoattenuation which is nonspecific, but most commonly relates to chronic small vessel disease. No abnormal extra axial fluid collection is identified. No mass effect or midline shift is seen. No acute osseous abnormalities are seen. Impression: 1. No evidence of acute intracranial abnormality 2. Exam limited by motion artifact 3. Age-related atrophy, and evidence of chronic small vessel disease as described CT DOSING PQRS STATEMENT: One or more of the following individualized dose reduction techniques were utilized for this examination: 1. Automated exposure control 2. Adjustment of the mA and/or kV according to patient size 3. Use of iterative reconstruction technique Electronically signed by: Loyd Pagan MD (10/03/2018 10:44 AM) [facility]
--- NOTE | 2018-10-03 13:40 | PN ---
DATE: 10/02/2018 PSYCHIATRIC PROGRESS NOTE This late entry 10/02/2018 covers elements not covered in my initial note. SUBJECTIVE: I met with the patient in the evening. The patient's daytime Seroquel has been stopped and per nursing report, she is back to herself. She is anxious, restless, refusing medications, irritable, and refused the breathing treatments. She was over sedated on Seroquel and nursing staff and family have observed. She does much better after Zyprexa p.r.n. and we will start this 2.5 mg daily on a scheduled basis. REVIEW OF SYSTEMS: Ambulation impaired. No CV, , pulmonary, eye, ENT system symptoms on review. Reliability poor. MENTAL STATUS EXAM: Oriented to herself. Insight, judgment, recent and remote memory, attention, concentration, fund of knowledge poor, consistent with her diagnosis mentioned in my initial note. PLAN: Start the Zyprexa as above. Rest unchanged. We will now stop the Seroquel. BRITT HERRERA MD DR: MEREDITH/rekha JOB#: [id number] / [id number]
[2018-10-03 15:43] VITALS: BP 126/71
[2018-10-03] MEDS: OLANZapine 2.5 MG TABLET PO SCH (20:22)
[2018-10-03] MEDS: SERTRALINE 100 MG TABLET. PO SCH (20:22)
[2018-10-03] MEDS: PATCH REMOVAL. MC SCH (20:23)
[2018-10-03] MEDS: MIRTAZAPINE 15 MG TABLET PO SCH (20:23)
[2018-10-03] MEDS: MELATONIN 3 MG TABLET PO SCH (20:23)
--- NOTE | 2018-10-03 22:12 | PDOC ---
Exam Note: Obdulio Note: Please also refer to the separate dictated note~for this date of service dictated separately.~Patient seen individually. Discussed the patient with Nursing staff reviewed the chart.~Reviewed interim history and current functioning. Reviewed vital signs,~Labs/ Radiology~and current medications noted below. Continue current treatment with the changes noted in the dictated addendum note Assessment: Vital Signs/I&O: Vital Signs Date Time Temp Pulse Resp B/P (MAP) Pulse Ox O2 Delivery O2 Flow Rate FiO2 10/03/18 20:28 98 Nasal Cannula 2.0 10/03/18 20:24 111 126/71 10/03/18 15:43 98.4 18 I & O 10/02/18 10/02/18 10/03/18 14:59 22:59 06:59 Intake Total 480 ml 240 ml 120 ml Balance 480 ml 240 ml 120 ml Current Medications: I have reviewed the current psychotropics carefully including drug interactions. Risk benefit ratio favors no change other than as noted in my dictated progress note. Diagnosis: Problems: (1) Anxiety disorder (2) Dementia, vascular, with depression (3) Depression (4) Dementia in Alzheimer's disease with depression (5) Dementia in Alzheimer's disease with delusions (6) Impulse control disorder (7) Major neurocognitive disorder BRITT HERRERA MD Oct 03, 2018 22:12
[2018-10-04] MEDS: BUDESONIDE 0.5 MG/2 ML NEBU NEB SCH ×2 (05:23→20:40)
[2018-10-04] MEDS: IPRATRPIUM/ALBUTEROL 0.5/2.5MG 3 ML NEBU. NEB SCH ×4 (05:23→20:40)
[2018-10-04 05:57] VITALS: BP 161/86
[2018-10-04] MEDS: LACTOBACILLUS RHAMNOSUS GG 1 CAPSULE. PO SCH ×2 (07:58→20:32)
[2018-10-04] MEDS: NYSTATIN TOPICAL POWDER 15GM BOTTLE. TP SCH ×2 (07:59→21:00)
[2018-10-04] MEDS: ACETAMINOPHEN 500 MG TABLET PO SCH ×3 (07:59→20:31)
[2018-10-04] MEDS: LIDOCAINE (700MG/PATCH) PATCH. TD SCH ×2 (07:59→09:00)
[2018-10-04] MEDS: CLOPIDOGREL BISULFATE 75 MG TABLET PO SCH (07:59)
[2018-10-04] MEDS: FLECAINIDE 50 MG TABLET. PO SCH ×2 (08:01→20:34)
[2018-10-04 15:57] VITALS: BP 115/72
[2018-10-04] MEDS: MIRTAZAPINE 15 MG TABLET PO SCH (20:32)
[2018-10-04] MEDS: SERTRALINE 100 MG TABLET. PO SCH (20:32)
[2018-10-04] MEDS: MELATONIN 3 MG TABLET PO SCH (20:32)
[2018-10-04] MEDS: PATCH REMOVAL. MC SCH (20:37)
[2018-10-04] MEDS ORDERED: OLANZapine 2.5 MG TABLET PO ONE (21:00)
--- NOTE | 2018-10-04 22:06 | PDOC ---
Exam Note: Obdulio Note: Please also refer to the separate dictated note~for this date of service dictated separately.~Patient seen individually. Discussed the patient with Nursing staff reviewed the chart.~Reviewed interim history and current functioning. Reviewed vital signs,~Labs/ Radiology~and current medications noted below. Continue current treatment with the changes noted in the dictated addendum note Assessment: Vital Signs/I&O: Vital Signs Date Time Temp Pulse Resp B/P (MAP) Pulse Ox O2 Delivery O2 Flow Rate FiO2 10/04/18 20:34 92 115/72 10/04/18 15:57 97.3 18 98 10/04/18 15:45 Room Air 10/04/18 05:57 2.0 I & O 10/03/18 10/03/18 10/04/18 14:59 22:59 06:59 Intake Total 600 ml 240 ml 120 ml Balance 600 ml 240 ml 120 ml Current Medications: Meds: Current Medications Medications (Trade) Dose Ordered Sig/Seth Route PRN Reason Start Time Stop Time Status Last Admin Dose Admin Olanzapine (ZyPREXA) 2.5 mg 1X ONCE PO 10/04/18 21:00 10/04/18 21:01 DC 10/04/18 20:32 I have reviewed the current psychotropics carefully including drug interactions. Risk benefit ratio favors no change other than as noted in my dictated progress note. Diagnosis: Problems: (1) Anxiety disorder (2) Dementia, vascular, with depression (3) Depression (4) Dementia in Alzheimer's disease with depression (5) Dementia in Alzheimer's disease with delusions (6) Impulse control disorder (7) Major neurocognitive disorder BRITT HERRERA MD Oct 04, 2018 22:06
--- NOTE | 2018-10-05 01:37 | PN ---
DATE: 10/03/2018 PSYCHIATRIC PROGRESS NOTE This late entry 10/03/2018 covers elements not covered in my initial note. SUBJECTIVE: I met with the patient in the evening. The patient slept 3-1/2 hours previous night. Previous evening, she fell out of her chair and hit her head. CT head was unremarkable, requested by Dr. Reilly. She has complained of some headache. Received Tylenol and Mylanta. She was agitated in the morning and received 2.5 mg Zyprexa at 9:18 a.m. REVIEW OF SYSTEMS: Positive for feeling cold. She was wrapped up into blankets. Impaired ambulation, in wheelchair. No CV, , pulmonary, eye, ENT system symptoms on review. MENTAL STATUS EXAM: Oriented to herself. Insight, judgment, recent and remote memory, attention, concentration, fund of knowledge poor, consistent with her diagnoses mentioned in my initial note. PLAN: No change from my initial note. BRITT HERRERA MD DR: MEREDITH/rekha JOB#: [id number] / [id number]
[2018-10-05] MEDS: BUDESONIDE 0.5 MG/2 ML NEBU NEB SCH ×2 (05:52→20:48)
[2018-10-05] MEDS: IPRATRPIUM/ALBUTEROL 0.5/2.5MG 3 ML NEBU. NEB SCH ×4 (05:53→20:48)
[2018-10-05 06:00] VITALS: BP 112/70
[2018-10-05] MEDS: LACTOBACILLUS RHAMNOSUS GG 1 CAPSULE. PO SCH ×2 (08:55→20:30)
[2018-10-05] MEDS: CLOPIDOGREL BISULFATE 75 MG TABLET PO SCH (08:55)
[2018-10-05] MEDS: NYSTATIN TOPICAL POWDER 15GM BOTTLE. TP SCH ×2 (08:56→20:39)
[2018-10-05] MEDS: ACETAMINOPHEN 500 MG TABLET PO SCH ×3 (08:56→20:30)
[2018-10-05] MEDS: LIDOCAINE (700MG/PATCH) PATCH. TD SCH (08:56)
[2018-10-05] MEDS: FLECAINIDE 50 MG TABLET. PO SCH ×2 (08:58→20:40)
[2018-10-05] MEDS ORDERED: OLANZapine 2.5 MG TABLET PO SCH (09:00)
[2018-10-05 16:31] VITALS: BP 103/73
[2018-10-05] MEDS: MELATONIN 3 MG TABLET PO SCH (20:30)
[2018-10-05] MEDS: SERTRALINE 100 MG TABLET. PO SCH (20:30)
[2018-10-05] MEDS: MIRTAZAPINE 15 MG TABLET PO SCH (20:30)
[2018-10-05] MEDS: PATCH REMOVAL. MC SCH (20:31)
[2018-10-05] MEDS: OLANZapine 2.5 MG TABLET PO SCH (20:34)
--- NOTE | 2018-10-05 22:33 | PDOC ---
Exam Note: Obdulio Note: Please also refer to the separate dictated note~for this date of service dictated separately.~Patient seen individually. Discussed the patient with Nursing staff reviewed the chart.~Reviewed interim history and current functioning. Reviewed vital signs,~Labs/ Radiology~and current medications noted below. Continue current treatment with the changes noted in the dictated addendum note Assessment: Vital Signs/I&O: Vital Signs Date Time Temp Pulse Resp B/P (MAP) Pulse Ox O2 Delivery O2 Flow Rate FiO2 10/05/18 20:40 69 116/69 10/05/18 16:42 95 Nasal Cannula 2.0 10/05/18 16:31 98.3 20 I & O 0 10/04/18 10/04/18 10/05/18 15:00 23:00 07:00 Intake Total 240 ml 240 ml 120 ml Balance 240 ml 240 ml 120 ml Current Medications: Meds: Current Medications Medications (Trade) Dose Ordered Sig/Seth Route PRN Reason Start Time Stop Time Status Last Admin Dose Admin Olanzapine (ZyPREXA) 2.5 mg DAILY PO 10/05/18 09:00 10/05/18 11:59 DC 10/05/18 08:56 Olanzapine (ZyPREXA) 2.5 mg BID PO 10/05/18 21:00 10/05/18 20:34 I have reviewed the current psychotropics carefully including drug interactions. Risk benefit ratio favors no change other than as noted in my dictated progress note. Diagnosis: Problems: (1) Anxiety disorder (2) Dementia, vascular, with depression (3) Depression (4) Dementia in Alzheimer's disease with depression (5) Dementia in Alzheimer's disease with delusions (6) Impulse control disorder (7) Major neurocognitive disorder BRITT HERRERA MD Oct 05, 2018 22:33
[2018-10-06] MEDS: IPRATRPIUM/ALBUTEROL 0.5/2.5MG 3 ML NEBU. NEB SCH ×4 (05:06→20:26)
[2018-10-06] MEDS: BUDESONIDE 0.5 MG/2 ML NEBU NEB SCH ×2 (05:06→20:27)
[2018-10-06 06:31] VITALS: BP 123/76
[2018-10-06 06:51] LABS: BASO # 0.1 x10^3/uL (0.0-0.2); BASO % 1 % (0-3); EOS # 0.3 x10^3/uL (0.0-0.7); EOS % 4 % (0-3); HEMATOCRIT 33.6 % (36.0-47.0); HEMOGLOBIN 11.1 g/dL (12.0-15.5); LYMPH # 0.8 x10^3/uL (1.0-4.8); LYMPH % 10 % (24-48); MEAN CORPUSCULAR HEMOGLOBIN 30 pg (25-35); MEAN CORPUSCULAR HGB CONC 33 g/dL (31-37); MEAN CORPUSCULAR VOLUME 90 fL (79-100); MONO # 0.7 x10^3/uL (0.0-1.1); MONO % 10 % (0-9); NEUT # 5.7 x10^3uL (1.8-7.7); NEUT % 75 % (31-73); PLATELET COUNT 310 x10^3/uL (140-400); RED BLOOD COUNT 3.75 x10^6/uL (3.50-5.40); RED CELL DISTRIBUTION WIDTH 15.9 % (11.5-14.5); WHITE BLOOD COUNT 7.6 x10^3/uL (4.0-11.0)
[2018-10-06 07:08] LABS: ALBUMIN 2.5 g/dL (3.4-5.0); ALBUMIN/GLOBULIN RATIO 0.6 (1.0-1.7); CALCIUM 9.2 mg/dL (8.5-10.1); CREATININE 0.7 mg/dL (0.6-1.0); GFR 80.1; POTASSIUM 3.7 mmol/L (3.5-5.1); TOTAL BILIRUBIN 0.4 mg/dL (0.2-1.0); TOTAL PROTEIN 6.8 g/dL (6.4-8.2)
[2018-10-06] MEDS: ACETAMINOPHEN 500 MG TABLET PO SCH ×3 (08:16→20:28)
[2018-10-06] MEDS: LACTOBACILLUS RHAMNOSUS GG 1 CAPSULE. PO SCH ×2 (08:16→20:27)
[2018-10-06] MEDS: OLANZapine 2.5 MG TABLET PO SCH ×2 (08:16→20:28)
[2018-10-06] MEDS: LIDOCAINE (700MG/PATCH) PATCH. TD SCH (08:16)
[2018-10-06] MEDS: CLOPIDOGREL BISULFATE 75 MG TABLET PO SCH (08:16)
[2018-10-06] MEDS: FLECAINIDE 50 MG TABLET. PO SCH ×2 (08:17→20:29)
[2018-10-06] MEDS: NYSTATIN TOPICAL POWDER 15GM BOTTLE. TP SCH ×2 (12:40→20:29)
[2018-10-06 15:40] VITALS: BP 113/68
[2018-10-06] MEDS: MAGNESIUM HYDROXIDE 2,400 MG/30 ML ORAL.SUSP. PO PRN (18:05)
[2018-10-06] MEDS: MELATONIN 3 MG TABLET PO SCH (20:28)
[2018-10-06] MEDS: SERTRALINE 100 MG TABLET. PO SCH (20:28)
[2018-10-06] MEDS: MIRTAZAPINE 15 MG TABLET PO SCH (20:28)
[2018-10-06] MEDS: PATCH REMOVAL. MC SCH (21:00)
--- NOTE | 2018-10-06 22:10 | PDOC ---
Exam Note: Obdulio Note: Please also refer to the separate dictated note~for this date of service dictated separately.~Patient seen individually. Discussed the patient with Nursing staff reviewed the chart.~Reviewed interim history and current functioning. Reviewed vital signs,~Labs/ Radiology~and current medications noted below. Continue current treatment with the changes noted in the dictated addendum note Assessment: Vital Signs/I&O: Vital Signs Date Time Temp Pulse Resp B/P (MAP) Pulse Ox O2 Delivery O2 Flow Rate FiO2 10/06/18 20:29 99 113/68 10/06/18 15:40 97.4 16 95 Nasal Cannula 2.0 I & O 10/05/18 10/05/18 10/06/18 15:00 23:00 07:00 Intake Total 200 ml 240 ml 420 ml Balance 200 ml 240 ml 420 ml Labs: Laboratory Tests Test 10/06/18 06:23 White Blood Count 7.6 x10^3/uL (4.0-11.0) Red Blood Count 3.75 x10^6/uL (3.50-5.40) Hemoglobin 11.1 g/dL (12.0-15.5) L Hematocrit 33.6 % (36.0-47.0) L Mean Corpuscular Volume 90 fL (79-100) Mean Corpuscular Hemoglobin 30 pg (25-35) Mean Corpuscular Hemoglobin Concent 33 g/dL (31-37) Red Cell Distribution Width 15.9 % (11.5-14.5) H Platelet Count 310 x10^3/uL (140-400) Neutrophils (%) (Auto) 75 % (31-73) H Lymphocytes (%) (Auto) 10 % (24-48) L Monocytes (%) (Auto) 10 % (0-9) H Eosinophils (%) (Auto) 4 % (0-3) H Basophils (%) (Auto) 1 % (0-3) Neutrophils # (Auto) 5.7 x10^3uL (1.8-7.7) Lymphocytes # (Auto) 0.8 x10^3/uL (1.0-4.8) L Monocytes # (Auto) 0.7 x10^3/uL (0.0-1.1) Eosinophils # (Auto) 0.3 x10^3/uL (0.0-0.7) Basophils # (Auto) 0.1 x10^3/uL (0.0-0.2) Sodium Level 144 mmol/L (136-145) Potassium Level 3.7 mmol/L (3.5-5.1) Chloride Level 106 mmol/L (98-107) Carbon Dioxide Level 29 mmol/L (21-32) Anion Gap 9 (6-14) Blood Urea Nitrogen 13 mg/dL (7-20) Creatinine 0.7 mg/dL (0.6-1.0) Estimated GFR (Cockcroft-Gault) 80.1 BUN/Creatinine Ratio 19 (6-20) Glucose Level 114 mg/dL (70-99) H Calcium Level 9.2 mg/dL (8.5-10.1) Total Bilirubin 0.4 mg/dL (0.2-1.0) Aspartate Amino Transferase (AST) 16 U/L (15-37) Alanine Aminotransferase (ALT) 19 U/L (14-59) Alkaline Phosphatase 99 U/L (46-116) Total Protein 6.8 g/dL (6.4-8.2) Albumin 2.5 g/dL (3.4-5.0) L Albumin/Globulin Ratio 0.6 (1.0-1.7) L Current Medications: I have reviewed the current psychotropics carefully including drug interactions. Risk benefit ratio favors no change other than as noted in my dictated progress note. Diagnosis: Problems: (1) Anxiety disorder (2) Dementia, vascular, with depression (3) Depression (4) Dementia in Alzheimer's disease with depression (5) Dementia in Alzheimer's disease with delusions (6) Impulse control disorder (7) Major neurocognitive disorder BRITT HERRERA MD Oct 06, 2018 22:10
--- NOTE | 2018-10-06 22:36 | PN ---
DATE: 10/05/2018 PSYCHIATRIC PROGRESS NOTE This late entry 10/05/2018 covers elements not covered in my initial note. SUBJECTIVE: I met with the patient in the evening. The patient slept 6 hours previous night. Appetite 75%. She was staffed at a treatment team meeting with the entire team in the morning and the patient's daughter, Vaishali, attended the conference. We had a lengthy discussion about her diagnosis, current psychotropics, prognosis, placement options. She has been little better with the scheduled Zyprexa 2.5 mg daily. REVIEW OF SYSTEMS: Positive for feeling cold. She had double blankets on her, sat in a wheelchair. No CV, , pulmonary, eye, ENT system symptoms on review. MENTAL STATUS EXAM: Oriented to herself. Insight, judgment, recent and remote memory, attention, concentration, fund of knowledge poor, consistent with her diagnosis mentioned in my initial note. PLAN: No change from initial note, but we will increase Zyprexa from 2.5 mg daily to 2.5 mg b.i.d. Rest unchanged. MAN Adilia HERRERA MD DR: MEREDITH/rekha JOB#: [id number] / [id number]
--- NOTE | 2018-10-07 00:48 | PN ---
DATE: 10/06/2018 PSYCHIATRIC PROGRESS NOTE This note covers elements not covered in my initial note 10/06/2018. SUBJECTIVE: The patient was seen on rounds evening of 10/06/2018. She slept 5-3/4 hours previous evening. She has been somewhat anxious, restless, less compliant with her O2 per nursing report. She has been more interactive with another demented female patient on the unit. REVIEW OF SYSTEMS: Shortness of breath, impaired ambulation in a wheelchair. No CV, , eye, ENT system symptoms on review. Reliability poor. MENTAL STATUS EXAM: Oriented to herself. Insight, judgment, recent and remote memory, attention, concentration, fund of knowledge poor, consistent with her diagnosis mentioned in my initial note. PLAN: No change from initial note. MAN Adilia HERRERA MD DR: MEREDITH/rekha JOB#: [id number] / [id number]
--- NOTE | 2018-10-07 03:26 | PN ---
DATE: 10/04/2018 This late entry 10/04/2018 covers elements not covered in my initial note. I met with the patient in the evening. The patient slept 6-1/2 hours previous night. She is compliant with her medications, refused the lidocaine patch in the morning. No p.r.n. had to be given. She had a better day per nursing report. The daughter called, had many questions about her psychotropics and addressed this with her. REVIEW OF SYSTEMS: Ambulation impaired, in wheelchair. No CV, , pulmonary, eye, ENT system symptoms on review. Reliability poor. MENTAL STATUS EXAM: Oriented to herself. Insight, judgment, recent and remote memory, attention, concentration, fund of knowledge, poor, consistent with her diagnosis mentioned in my initial note. PLAN: No change from initial note. Maintain Zoloft 100 mg a day and we have changed the Zyprexa to 2.5 mg daily. Maintain Remeron 15 mg at bedtime, melatonin 6 mg at bedtime. MAN Adilia HERRERA MD DR: MEREDITH/rekha JOB#: [id number] / [id number]
[2018-10-07] MEDS: IPRATRPIUM/ALBUTEROL 0.5/2.5MG 3 ML NEBU. NEB SCH ×4 (05:31→20:05)
[2018-10-07 05:55] VITALS: BP 105/55
[2018-10-07] MEDS: ACETAMINOPHEN 500 MG TABLET PO SCH ×4 (09:00→21:00)
[2018-10-07] MEDS: LACTOBACILLUS RHAMNOSUS GG 1 CAPSULE. PO SCH ×3 (09:00→21:00)
[2018-10-07] MEDS: LIDOCAINE (700MG/PATCH) PATCH. TD SCH (09:00)
[2018-10-07] MEDS: NYSTATIN TOPICAL POWDER 15GM BOTTLE. TP SCH ×2 (09:00→19:57)
[2018-10-07 09:03] VITALS: BP 149/79
[2018-10-07] MEDS: CLOPIDOGREL BISULFATE 75 MG TABLET PO SCH (09:04)
[2018-10-07] MEDS: FLECAINIDE 50 MG TABLET. PO SCH ×3 (09:04→21:00)
[2018-10-07] MEDS: OLANZapine 2.5 MG TABLET PO SCH ×3 (09:05→21:00)
[2018-10-07] MEDS: BUDESONIDE 0.5 MG/2 ML NEBU NEB SCH ×2 (11:41→20:05)
[2018-10-07 15:28] VITALS: BP 122/72
[2018-10-07] MEDS: MIRTAZAPINE 15 MG TABLET PO SCH ×2 (19:43→21:00)
[2018-10-07] MEDS: SERTRALINE 100 MG TABLET. PO SCH ×2 (19:44→21:00)
[2018-10-07] MEDS: MELATONIN 3 MG TABLET PO SCH ×2 (19:44→21:00)
[2018-10-07] MEDS: PATCH REMOVAL. MC SCH (21:00)
[2018-10-08] MEDS: IPRATRPIUM/ALBUTEROL 0.5/2.5MG 3 ML NEBU. NEB SCH ×4 (05:25→20:17)
[2018-10-08 06:20] VITALS: BP 116/74
[2018-10-08] MEDS: BUDESONIDE 0.5 MG/2 ML NEBU NEB SCH ×2 (08:00→20:17)
[2018-10-08] MEDS: LACTOBACILLUS RHAMNOSUS GG 1 CAPSULE. PO SCH ×2 (08:01→20:31)
[2018-10-08] MEDS: OLANZapine 2.5 MG TABLET PO SCH ×2 (08:03→20:32)
[2018-10-08] MEDS: CLOPIDOGREL BISULFATE 75 MG TABLET PO SCH (08:03)
[2018-10-08] MEDS: ACETAMINOPHEN 500 MG TABLET PO SCH ×3 (08:03→20:32)
[2018-10-08] MEDS: NYSTATIN TOPICAL POWDER 15GM BOTTLE. TP SCH (08:05)
[2018-10-08] MEDS: FLECAINIDE 50 MG TABLET. PO SCH ×2 (08:05→20:35)
--- NOTE | 2018-10-08 08:26 | PN ---
DATE: 10/07/2018 SUBJECTIVE: The patient was seen today, met with the staff, chart reviewed and also covering for Dr. Llamas. Staff reports no major behavior problems except refusing shower and also gets extremely anxious, almost having a panic attack, claustrophobic when she is in shower. OBSERVATION: VITAL SIGNS: Temperature 98.3, blood pressure 105/55, pulse 70, respirations 24, O2 sat 95%. Slept about 6 hours last night. The patient's appetite is fair. The patient has not presented any major behavior problems. She is on wheelchair. Staff reports no falls. MEDICATIONS: Reviewed. Currently on Zyprexa 2.5 mg b.i.d., melatonin 6 mg at night, Zoloft 100 mg at night, mirtazapine 15 mg at night, olanzapine 2.5 mg q.2 hours p.r.n. The patient's lab reviewed, hemoglobin 11.1, HCT 33.6. The patient's BUN was 114. The patient is having difficulty with cognition, highly anxious, nervous, significant problems with concentration and thinking. ASSESSMENT: 1. Major neurocognitive disorder, most likely Alzheimer's versus vascular with behavior problems. 2. Generalized anxiety disorder. PLAN: To continue with the treatment. PEYTON BUSH MD DR: NATHEN/rekha JOB#: [id number] / [id number]
[2018-10-08] MEDS: LIDOCAINE (700MG/PATCH) PATCH. TD SCH (09:00)
[2018-10-08 09:04] LABS: BASO # 0.1 x10^3/uL (0.0-0.2); BASO % 1 % (0-3); EOS # 0.2 x10^3/uL (0.0-0.7); EOS % 2 % (0-3); HEMOGLOBIN 11.4 g/dL (12.0-15.5); LYMPH % 11 % (24-48); MEAN CORPUSCULAR HEMOGLOBIN 30 pg (25-35); MEAN CORPUSCULAR HGB CONC 33 g/dL (31-37); MEAN CORPUSCULAR VOLUME 91 fL (79-100); MONO # 0.7 x10^3/uL (0.0-1.1); MONO % 8 % (0-9); NEUT # 7.2 x10^3uL (1.8-7.7); NEUT % 78 % (31-73); PLATELET COUNT 333 x10^3/uL (140-400); RED BLOOD COUNT 3.86 x10^6/uL (3.50-5.40); RED CELL DISTRIBUTION WIDTH 16.1 % (11.5-14.5); WHITE BLOOD COUNT 9.2 x10^3/uL (4.0-11.0)
[2018-10-08 09:19] LABS: ALBUMIN 2.7 g/dL (3.4-5.0); ALBUMIN/GLOBULIN RATIO 0.6 (1.0-1.7); CALCIUM 9.4 mg/dL (8.5-10.1); CREATININE 0.6 mg/dL (0.6-1.0); GFR 95.7; POTASSIUM 3.8 mmol/L (3.5-5.1); TOTAL BILIRUBIN 0.3 mg/dL (0.2-1.0); TOTAL PROTEIN 7.4 g/dL (6.4-8.2)
--- NOTE | 2018-10-08 09:35 | RAD ---
Indication:. Fever TECHNIQUE:Portable AP chest X-ray COMPARISON: 09/18/2018 FINDINGS: Patient is significantly rotated to the right side limiting optimal evaluation. Heart is moderately enlarged in size. Ectatic and tortuous thoracic aorta. Stable scattered nodular opacities most likely calcified granuloma. No focal consolidation. No pneumothorax or pleural effusion. Visualized bony thorax within normal limits. IMPRESSION: Limited exam due to positioning. However, No acute pulmonary process. Stable exam. Electronically signed by: Isacc Santos DO (10/08/2018 9:32 AM) [facility]
[2018-10-08 16:58] VITALS: BP 137/87
[2018-10-08 17:15] LABS: BILIRUBIN,URINE NEG (NEG); CLARITY,URINE HAZY; COLOR,URINE YELLOW; GLUCOSE,URINE NEG (NEG); NITRITE,URINE NEG (NEG); UROBILINOGEN,URINE 4 mg/dL (0.2 mg/dL)
[2018-10-08 17:16] LABS: BACTERIA,URINE 0 /HPF (0-FEW); RBC,URINE 0 /HPF (0-2); SQUAMOUS EPITHELIAL CELL,UR OCC /LPF
[2018-10-08] MEDS: MIRTAZAPINE 15 MG TABLET PO SCH (20:31)
[2018-10-08] MEDS: MELATONIN 3 MG TABLET PO SCH (20:32)
[2018-10-08] MEDS: PATCH REMOVAL. MC SCH (20:32)
[2018-10-08] MEDS: SERTRALINE 100 MG TABLET. PO SCH (20:32)
--- NOTE | 2018-10-09 01:30 | PN ---
DATE: 10/08/2018 SUBJECTIVE: The patient was seen today, met with the staff, chart reviewed. The patient continues to show improvement. The patient apparently had a rise in temperature today. The patient still continues to have problems, refusing showers. The patient is afraid to go into shower, high level of anxiety including having a panic attack. The patient is currently on wheelchair. The patient also complains of coughing, having difficulty breathing at times. OBSERVATION: VITAL SIGNS: Temperature 99.3, blood pressure 116/74, pulse 77, respirations 24, O2 sat 90%. Slept about 5-1/2 hours last night. The patient's appetite is fair. The patient is withdrawn most of the time, has some psychomotor retardation, currently not exhibiting any major psychotic symptoms, has cognitive deficits, appears depressed, slightly anxious and constricted affect. The patient will continue on the current medications including Zyprexa 2.5 mg b.i.d., melatonin 6 mg at night, Zoloft 100 mg at night, mirtazapine 15 mg at night, also on olanzapine 2.5 mg q.2 hours p.r.n. ASSESSMENT: 1. Major neurocognitive disorder, most likely Alzheimer's versus vascular with behavior problems. 2. Generalized anxiety disorder. PLAN: To continue with the treatment. The patient is encouraged to attend all the activities. LENGTH OF STAY: 5 days. PEYTON BUSH MD DR: NATHEN/rekha JOB#: [id number] / [id number]
[2018-10-09] MEDS: IPRATRPIUM/ALBUTEROL 0.5/2.5MG 3 ML NEBU. NEB SCH ×4 (05:20→20:45)
[2018-10-09 06:12] VITALS: BP 138/76
[2018-10-09] MEDS: NYSTATIN TOPICAL POWDER 15GM BOTTLE. TP SCH ×3 (06:25→20:27)
[2018-10-09] MEDS: CLOPIDOGREL BISULFATE 75 MG TABLET PO SCH (08:03)
[2018-10-09] MEDS: OLANZapine 2.5 MG TABLET PO SCH ×2 (08:04→20:24)
[2018-10-09] MEDS: FLECAINIDE 50 MG TABLET. PO SCH ×2 (08:07→20:27)
[2018-10-09] MEDS: LIDOCAINE (700MG/PATCH) PATCH. TD SCH (08:59)
[2018-10-09] MEDS: LACTOBACILLUS RHAMNOSUS GG 1 CAPSULE. PO SCH ×3 (09:00→21:00)
[2018-10-09] MEDS: ACETAMINOPHEN 500 MG TABLET PO SCH ×4 (09:00→21:00)
[2018-10-09] MEDS: BUDESONIDE 0.5 MG/2 ML NEBU NEB SCH ×2 (11:06→20:45)
[2018-10-09 16:26] VITALS: BP 123/86
[2018-10-09] MEDS: MELATONIN 3 MG TABLET PO SCH (20:23)
[2018-10-09] MEDS: SERTRALINE 100 MG TABLET. PO SCH (20:25)
[2018-10-09] MEDS: PATCH REMOVAL. MC SCH (20:25)
[2018-10-09] MEDS: MIRTAZAPINE 15 MG TABLET PO SCH (20:26)
--- NOTE | 2018-10-09 23:35 | PN ---
DATE: 10/09/2018 SUBJECTIVE: The patient was seen today, met with the staff, chart reviewed. The patient apparently not presenting with any major behavior problems. The patient has periods of high level of anxiety, also having panic attacks. The patient is still refusing a shower because of the anxiety and fear. The patient also constantly complaining about coughing and having difficulty breathing at times. OBSERVATION: VITAL SIGNS: Temperature 98.1, blood pressure 138/76, pulse 69, respirations 20, O2 sat 92%. Slept about 6-1/2 hours last night. The patient's appetite has improved. The patient continues to have marked psychomotor retardation and appears depressed. No evidence of any psychotic symptoms. Has significant cognitive deficits, also high level of anxiety. CURRENT MEDICATIONS: Include Zyprexa 2.5 mg b.i.d., melatonin 6 mg at night, Zoloft 100 mg at night, mirtazapine 15 mg at night and also olanzapine 2.5 mg q.2 hours p.r.n. ASSESSMENT: 1. Major neurocognitive disorder, most likely Alzheimer's versus vascular with behavior problems. 2. Generalized anxiety disorder. PLAN: We will continue with the treatment. LENGTH OF STAY: 4-5 days. PEYTON BUSH MD DR: NATHEN/rekha JOB#: [id number] / [id number]
[2018-10-10] MEDS: BUDESONIDE 0.5 MG/2 ML NEBU NEB SCH ×2 (05:32→20:23)
[2018-10-10] MEDS: IPRATRPIUM/ALBUTEROL 0.5/2.5MG 3 ML NEBU. NEB SCH ×4 (05:32→20:23)
[2018-10-10 06:03] VITALS: BP 135/81
[2018-10-10] MEDS: CLOPIDOGREL BISULFATE 75 MG TABLET PO SCH (07:53)
[2018-10-10] MEDS: FLECAINIDE 50 MG TABLET. PO SCH ×2 (07:54→21:28)
[2018-10-10] MEDS: OLANZapine 2.5 MG TABLET PO SCH ×2 (07:55→21:02)
[2018-10-10] MEDS: NYSTATIN TOPICAL POWDER 15GM BOTTLE. TP SCH ×2 (07:55→21:08)
[2018-10-10] MEDS: ACETAMINOPHEN 500 MG TABLET PO SCH ×3 (09:00→21:02)
[2018-10-10] MEDS: LACTOBACILLUS RHAMNOSUS GG 1 CAPSULE. PO SCH ×2 (09:00→21:08)
[2018-10-10] MEDS: LIDOCAINE (700MG/PATCH) PATCH. TD SCH (09:00)
[2018-10-10] MEDS ORDERED: LORazepam 0.5 MG TABLET PO PRN (10:15)
[2018-10-10 16:11] VITALS: BP 130/89
[2018-10-10] MEDS: ACETAMINOPHEN 325 MG TABLET PO PRN (18:29)
[2018-10-10] MEDS: PATCH REMOVAL. MC SCH (21:00)
[2018-10-10] MEDS: MIRTAZAPINE 15 MG TABLET PO SCH (21:02)
[2018-10-10] MEDS: MELATONIN 3 MG TABLET PO SCH (21:03)
[2018-10-10] MEDS: SERTRALINE 100 MG TABLET. PO SCH (21:03)
--- NOTE | 2018-10-10 22:22 | PN ---
DATE: 10/10/2018 SUBJECTIVE: The patient was seen today, met with the staff, chart reviewed. The patient continues to have problems with high level of anxiety, especially prior to showers. The patient takes a long time to recover from each episode. The patient is most of the time refusing to shower because of that. The patient also having panic attacks. OBSERVATION: VITAL SIGNS: Stable. Sleep fair. The patient's appetite improved. MEDICATIONS: The patient's current medications include Zyprexa 2.5 mg b.i.d., melatonin 6 mg at night, Zoloft 100 mg at night, and olanzapine 2.5 mg q. 2-4 hours p.r.n. The patient's lab reviewed. ASSESSMENT: 1. Major neurocognitive disorder, most likely Alzheimer's versus vascular with behavior problems. 2. Generalized anxiety disorder. PLAN: Continue with the current treatment, also start on Ativan 0.5 mg half an hour prior to having showers. LENGTH OF STAY: 4-5 days. PEYTON BUSH MD DR: NATHEN/rekha JOB#: [id number] / [id number]
[2018-10-11] MEDS ORDERED: ALBU2.5V5 NEB (03:43)
[2018-10-11] MEDS ORDERED: ACET325T9 PO (03:43)
[2018-10-11] MEDS ORDERED: BUDE0.5A3 IH (03:45)
[2018-10-11] MEDS ORDERED: IPRA3AMP29 NEB (03:50)
[2018-10-11] MEDS ORDERED: LACT1CAP21 PO (03:51)
[2018-10-11] MEDS ORDERED: LIDO700A21 TP (03:53)
[2018-10-11] MEDS ORDERED: LORA0.5T PO (03:54)
[2018-10-11] MEDS ORDERED: MAG30ORA2 PO (03:56)
[2018-10-11] MEDS ORDERED: MAGN400O7 PO (03:57)
[2018-10-11] MEDS ORDERED: METH29OI TP (03:58)
[2018-10-11] MEDS ORDERED: OLAN2.5T3 PO (04:04)
[2018-10-11] MEDS ORDERED: Patch Removal MC (04:06)
[2018-10-11 06:15] VITALS: BP 183/72
[2018-10-11] MEDS: IPRATRPIUM/ALBUTEROL 0.5/2.5MG 3 ML NEBU. NEB SCH ×2 (06:41→11:10)
[2018-10-11] MEDS: BUDESONIDE 0.5 MG/2 ML NEBU NEB SCH (08:00)
[2018-10-11] MEDS: LACTOBACILLUS RHAMNOSUS GG 1 CAPSULE. PO SCH (08:38)
[2018-10-11] MEDS: OLANZapine 2.5 MG TABLET PO SCH (08:38)
[2018-10-11 08:39] VITALS: BP 183/72
[2018-10-11] MEDS: FLECAINIDE 50 MG TABLET. PO SCH (08:39)
[2018-10-11] MEDS: ACETAMINOPHEN 500 MG TABLET PO SCH (08:39)
[2018-10-11] MEDS: CLOPIDOGREL BISULFATE 75 MG TABLET PO SCH (08:39)
[2018-10-11] MEDS: NYSTATIN TOPICAL POWDER 15GM BOTTLE. TP SCH (08:40)
[2018-10-11] MEDS: LIDOCAINE (700MG/PATCH) PATCH. TD SCH ×2 (08:44→09:00)
--- NOTE | 2018-10-13 18:29 | DS ---
DATE OF DISCHARGE: 10/11/2018 FINAL DIAGNOSES: 1. 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 2. Anxiety disorder, unspecified. 3. Impulse control disorder, unspecified. 4. Confusion secondary to urinary tract infection. REASON FOR ADMISSION: This 83-year-old female admitted from [facility] at the recommendation of Dr. Sammy Holguin, her primary care physician. The patient has been having problems with confusion, being combative, refusing to eat, also emotional lability, paranoia and unable to sleep. The patient also became combative with the staff there. The patient apparently went to [facility] for evaluation and sent back to the facility after the ER visit. HISTORY OF PRESENT ILLNESS: The patient has a history of dementia, Alzheimer's, vascular with delusions, depression, behavioral disturbances. Over the past 3 weeks, her behavior has gotten worse to the point she is uncontrollable and staff is not able to manage her behavior and apparently she is not sleeping well. HOSPITAL COURSE: The patient had a physical exam, routine lab work including CBC, chem profile, urinalysis. Most of the labwork was within normal range except for hemoglobin count of 11.4 and elevated blood sugar level. The patient's urinalysis is within normal range. The patient also had a CT scan of the head. The patient's CT scan was within normal limits except for age-related atrophy. The patient was involved in the treatment program including individual therapy, group therapy, activity therapy. The patient's medication included Zyprexa 2.5 mg twice a day, melatonin 6 mg at night, Zoloft 100 mg at night, and olanzapine 2.5 mg q. 4 hours p.r.n. The patient did not have any side effects. The patient's sleep and appetite have improved. AFTERCARE PLAN: The patient at the time of discharge medically stable. Behavior improved significantly. Continues to have cognitive deficits. The patient is not threatening or combative behaviors. The patient will be returning to [facility] where she was resting before. PEYTON BUSH MD DR: NATHEN/rekha JOB#: [id number] / [id number]
== END 2018-10-11 13:30 | DRG 57 ==
LOC: GEROPSY 02:05
PROVIDERS: ADMIT Psychiatry & Neurology Psychiatry; ATTEND Psychiatry & Neurology Psychiatry
DX: G30.9 Alzheimer's disease, unspecified (principal); F01.51 Vascular dementia, unspecified severity, with behavioral disturbance; F02.81 Dementia in other diseases classified elsewhere, unspecified severity, with behavioral disturbance; N39.0 Urinary tract infection, site not specified; F31.9 Bipolar disorder, unspecified; F41.0 Panic disorder [episodic paroxysmal anxiety]; F41.1 Generalized anxiety disorder; F63.9 Impulse disorder, unspecified; I10 Essential (primary) hypertension; G62.9 Polyneuropathy, unspecified; J44.9 Chronic obstructive pulmonary disease, unspecified; J98.4 Other disorders of lung; K59.00 Constipation, unspecified; M19.90 Unspecified osteoarthritis, unspecified site; M41.9 Scoliosis, unspecified; M81.0 Age-related osteoporosis without current pathological fracture; Z87.440 Personal history of urinary (tract) infections; Z91.19 Patient's noncompliance with other medical treatment and regimen; Z99.81 Dependence on supplemental oxygen; Z88.8 Allergy status to other drugs, medicaments and biological substances; Z79.899 Other long term (current) drug therapy
CPT/HCPCS: 36415; 70450; 71045; 80048; 80053; 80061; 80164; 81001; 82306; 83036; 83540; 83550; 83605; 83735; 84436; 84443; 84480; 85025; 86592; 87040; 87086; 92526; 94640; J7512; J7620; J7626; 92610; 97116; 97530